=== PATIENT | female | born 1960 | race Caucasian/White ===

== ENCOUNTER 2016-11-26 23:07 | Emergency (ER) | payer OTHER ==
[2016-11-26 23:28] VITALS: BMI 27.7
--- NOTE | 2016-11-27 00:05 | PDOC ---
History of Present Illness - General History Source: Patient Exam Limitations: No Limitations - History of Present Illness Initial Comments: 11/27/16 00:24 The patient is a 56 year old female with significant past medical history of diabetes who presents to the ED for few months of nasal and chest congestion. Patient reports she has been feeling congestion for the past few months with SOB and occasional productive cough with yellow-greenish sputum. States she endorses chest pain when she cough. Denies lightheadedness, diaphoresis, palpitations, jaw pain, shoulder pain, arm pain, leg swelling, nausea, or vomiting. No sick contacts or recent travels. Denies oral contraceptives. The patient denies fever, chills, abdominal pain, and diarrhea. Allergies: NKDA Social History: Current smoker (half ppd). No alcohol or drug use reported. Past Surgical History: None reported PCP: Dr. Shey Donohue <Haydee Del Valle - Last Filed: 11/27/16 01:23> - General History Source: Patient <Kalyan Almazan - Last Filed: 11/27/16 01:46> - General Chief Complaint: Respiratory Stated Complaint: DIFFICULT BREATHING Time Seen by Provider: 11/26/16 23:25 Past History <Haydee Del Valle - Last Filed: 11/27/16 01:23> - Immunization History Immunization Up to Date: No - Psycho/Social/Smoking Cessation Hx Suicidal Ideation: No Smoking History: Current every day smoker Number of Cigarettes Smoked Daily: 10 Information on smoking cessation initiated: No Hx Alcohol Use: No Drug/Substance Use Hx: No <Kalyan Almazan - Last Filed: 11/27/16 01:46> - Past Medical History Allergies/Adverse Reactions: Allergies Allergy/AdvReac Type Severity Reaction Status Date / Time No Known Allergies Allergy Verified 11/27/16 00:03 Home Medications: Ambulatory Orders Albuterol Sulfate Inhaler - [Ventolin HFA Inhaler -] 2 inh IH Q6H #1 inh Azithromycin [Zithromax -] 250 mg PO UTDICT #6 tab 11/27/16 Duloxetine HCl [Cymbalta] 20 mg PO DAILY 11/27/16 Methylprednisolone [Medrol Dose Jareth] 4 mg PO ASDIR #21 tablet 11/27/16 Trazodone HCl [Desyrel -] 100 mg PO HS 11/27/16 Review of Systems - Review of Systems Able to Perform ROS?: Yes Comments:: 11/27/16 00:24 CONSTITUTIONAL: Absent: fever, no chills, no fatigue EYES: Absent: visual changes ENT: +nasal congestion Absent: ear pain, no sore throat CARDIOVASCULAR: +chest pain Absent: no palpitations RESPIRATORY: +productive cough with yellow-greenish sputum, chest congestion, SOB GI: Absent: abdominal pain, no nausea, no vomiting, no constipation, no diarrhea GENITOURINARY: Absent: dysuria, no frequency, no hematuria MUSCULOSKELETAL: Absent: back pain, no arthralgia, no myalgia SKIN: Absent: rash NEURO: Absent: headache <Haydee Del Valle - Last Filed: 11/27/16 01:23> *Physical Exam - Vital Signs Last Vital Signs Temp Pulse Resp BP Pulse Ox 98.8 F 82 14 146/79 96 11/26/16 23:24 11/26/16 23:24 11/26/16 23:24 11/26/16 23:24 11/26/16 23:44 - Physical Exam Comments: 11/27/16 00:24 GENERAL: Well-appearing, well-nourished. No apparent distress. HEENT: Normocephalic, atraumatic. PERRL, EOM intact. CARDIOVASCULAR: Normal S1, S2. Regular rate and rhythm. PULMONARY: Bilateral wheezing and crackles. No conversational dyspnea. No retractions. ABDOMEN: Obese. Soft, non-distended, non-tender. EXTREMITIES: Normal ROM in all four extremities. No gross deformities. SKIN: Warm, dry. No rash NEUROLOGICAL: No focal neurological deficits. <Haydee Del Valle - Last Filed: 11/27/16 01:23> - Vital Signs Last Vital Signs Temp Pulse Resp BP Pulse Ox 98.8 F 82 14 146/79 96 11/26/16 23:24 11/26/16 23:24 11/26/16 23:24 11/26/16 23:24 11/26/16 23:44 <Kalyan Almazan - Last Filed: 11/27/16 01:46> ED Treatment Course - LABORATORY CBC & Chemistry Diagram: 11/27/16 00:50 11/27/16 00:50 <Haydee Del Valle - Last Filed: 11/27/16 01:23> - LABORATORY CBC & Chemistry Diagram: 11/27/16 00:50 11/27/16 00:50 <Kalyan Almazan - Last Filed: 11/27/16 01:46> Medical Decision Making - Medical Decision Making 11/27/16 01:45 Dr. Almazan: The scribe's documentation has been prepared under my direction and personally reviewed by me in its entirery. I confirm that the note above accurately reflects all work, treatment, procedures, and medical decision making performed by me. <Kalyan Almazan - Last Filed: 11/27/16 01:46> *DC/Admit/Observation/Transfer - Attestations Scribe Attestion: 11/27/16 00:25 Documentation prepared by Haydee Del Valle, acting as medical device for Kalyan Almazan MD/. <Haydee Dle Valle - Last Filed: 11/27/16 01:23> - Discharge Dispostion Admit: No <Kalyan Almazan - Last Filed: 11/27/16 01:46> Diagnosis at time of Disposition: Bronchitis - Discharge Dispostion Disposition: HOME Condition at time of disposition: Stable - Prescriptions Prescriptions: Methylprednisolone [Medrol Dose Jareth] 4 mg PO ASDIR #21 tablet Albuterol Sulfate Inhaler - [Ventolin HFA Inhaler -] 2 inh IH Q6H #1 inh Azithromycin [Zithromax -] 250 mg PO UTDICT #6 tab - Referrals Referrals: Shey Engle [Primary Care Provider] - - Patient Instructions Printed Discharge Instructions: DI for Acute Bronchitis
[2016-11-27] MEDS ORDERED: methylPREDNISolone NA SUCC 125 MG/2 ML VIAL IVPB ONE (00:08)
[2016-11-27] MEDS ORDERED: ALBUTEROL SO4 2.5/IPRATROPIUM 0.5 INH SOL 3 ML VIAL.NEB. NEB STA ×3 (00:08→01:43)
[2016-11-27] MEDS ORDERED: MAGNESIUM SULF 50% (8.12 MEQ/2 ML-1 GM VIAL) IVPB ONE (00:09)
[2016-11-27] MEDS ORDERED: MAGNESIUM SULF 50% (8.12 MEQ/2 ML-1 GM VIAL) ONE (00:43)
[2016-11-27] MEDS ORDERED: methylPREDNISolone NA SUCC 125 MG/2 ML VIAL ONE (00:43)
[2016-11-27] MEDS ORDERED: ALBUTEROL SO4 2.5/IPRATROPIUM 0.5 INH SOL 3 ML VIAL.NEB. NEB ONE (00:43)
[2016-11-27 01:02] LABS: BASOPHIL 1.1 % (0-2.0); MCH 26.4 pg (25.7-33.7); MCHC 32.8 g/dl (32.0-36.0); MEAN CELL VOLUME 80.5 fl (80-96); NEUTROPHILS 85.7 % (42.8-82.8); PLATELET COUNT 228 K/MM3 (134-434); RDW 14.3 % (11.6-15.6); WHITE BLOOD COUNT 7.8 K/mm3 (4.0-10.0)
[2016-11-27 01:27] LABS: ALBUMIN 3.5 g/dl (3.4-5.0); BILIRUBIN,TOTAL 0.2 mg/dL (0.2-1.0); CALCIUM 9.2 mg/dL (8.5-10.1); COCKROFT - GAULT 77.7155; MAGNESIUM 1.7 mg/dL (1.8-2.4); TOT PROT 6.9 g/dl (6.4-8.2)
[2016-11-27] MEDS ORDERED: AZITHROMYCIN 250 MG TABLET (FP) PO STA (01:43)
[2016-11-27] MEDS ORDERED: AZITHROMYCIN 250 MG TABLET (FP) ONE (02:33)
[2016-11-27 02:53] VITALS: BP 140/78; PULSE 78; TEMP 98.6
== END 2016-11-27 02:52 | disposition home or self-care (01) ==
LOC: JER 23:07
PROC: 3E0F7GC Introduction of Other Therapeutic Substance into Respiratory Tract, Via Natural or Artificial Opening (ICD-10-PCS; principal; 2016-11-26)
PROC: 3E033GC Introduction of Other Therapeutic Substance into Peripheral Vein, Percutaneous Approach (ICD-10-PCS; 2016-11-26)
DX: J40 Bronchitis, not specified as acute or chronic (principal); F17.210 Nicotine dependence, cigarettes, uncomplicated
CPT/HCPCS: 36415; 71010-TC; 80053; 83735; 83880; 85025; 85610; 94640; 96374; 96375; 99282-25

== ENCOUNTER 2018-02-16 12:16 | Day surgery (SDC) | payer OTHER ==
[2018-02-16] MEDS ORDERED: BUPIVACAINE HCL/PF 0.5% (5MG/ML) 10 ML VIAL ONE (12:42)
[2018-02-16] MEDS ORDERED: GENTAMICIN SO4 80 MG/2 ML VIAL ONE (12:42)
[2018-02-16] MEDS ORDERED: THROMBIN (BOVINE) 20,000 UNIT VIAL TP ONE (12:42)
[2018-02-16] MEDS ORDERED: ACETAMINOPHEN INJECTION 100 ML IVPB ONE (12:49)
[2018-02-16] MEDS ORDERED: ROCURONIUM BROMIDE 50 MG/5 ML VIAL ONE ×2 (12:55)
[2018-02-16 13:00] VITALS: BMI 32.2
[2018-02-16] MEDS ORDERED: PROPOFOL 20 ML ONE (13:02)
[2018-02-16] MEDS ORDERED: fentaNYL CITRATE 250 MCG/5 ML VIAL ONE (13:03)
[2018-02-16] MEDS ORDERED: LIDOCAINE HCL/PF 2% SDV 5ML VIAL ONE (13:04)
[2018-02-16] MEDS ORDERED: DEXAMETHASONE SOD PHOSPHATE 4 MG/1 ML VIAL ONE (13:04)
[2018-02-16] MEDS ORDERED: MIDAZOLAM HCL 2 MG/2 ML SINGLE DOSE VIAL ONE (13:04)
[2018-02-16 13:15] VITALS: BP 125/66; PULSE 71; TEMP 98.1
[2018-02-16 13:19] LABS: BASO % 1.3 % (0-2.0); EOS % 2.1 % (0-4.5); HEMATOCRIT 38.8 % (32.4-45.2); HEMOGLOBIN 12.8 GM/dL (10.7-15.3); LYMPH % 26.4 % (8-40); MEAN CELL VOLUME 81.7 fl (80-96); MEAN PLT VOLUME 8.9 fl (7.5-11.1); MONO % 6.6 % (3.8-10.2); NEUT % 63.6 % (42.8-82.8); PLATELET COUNT 227 K/MM3 (134-434); RBC 4.76 M/mm3 (3.60-5.2); RDW 15.1 % (11.6-15.6); WHITE BLOOD COUNT 8.6 K/mm3 (4.0-10.0)
[2018-02-16 13:27] LABS: URINE APPEARANCE CLOUDY; URINE BILIRUBIN NEGATIVE (<2.0 mg/dL); URINE COLOR YELLOW; URINE GLUCOSE (UA) NEGATIVE (NEGATIVE); URINE KETONE NEGATIVE (NEGATIVE); URINE NITRITE POSITIVE (NEGATIVE); URINE PROTEIN NEGATIVE (NEGATIVE); URINE UROBILINOGEN NEGATIVE mg/dL (0.2-1.0)
[2018-02-16 13:29] LABS: URINE LEUK ESTERASE 3+ (NEGATIVE)
[2018-02-16 13:32] LABS: HCG,QUALITATIVE URINE Negative
[2018-02-16 13:36] LABS: ALBUMIN 3.8 g/dl (3.4-5.0); ANION GAP 7 (8-16); BLOOD UREA NITROGEN 22 mg/dL (7-18); CALCIUM 9.8 mg/dL (8.5-10.1); CHLORIDE 107 mmol/L (98-107); CO2 28 mmol/L (21-32); GLUCOSE,RANDOM 96 mg/dL (74-106); POTASSIUM 4.9 mmol/L (3.5-5.1); SODIUM 142 mmol/L (136-145)
[2018-02-16 13:40] LABS: ALK PHOS 70 U/L (45-117); BILIRUBIN,TOTAL 0.3 mg/dL (0.2-1.0); CREATININE 1.1 mg/dL (0.55-1.02); SGOT/AST 11 U/L (15-37); SGPT/ALT 15 U/L (12-78); TOT PROT 7.3 g/dl (6.4-8.2)
[2018-02-16 13:44] LABS: EPI CELLS RARE /HPF (FEW); URINE BACTERIA MODERATE /hpf (NONE SEEN)
[2018-02-16 14:05] LABS: INR 0.97 (0.83-1.09)
[2018-02-16] MEDS ORDERED: ALBUTEROL SO4 8 GM HFA INHALER IH ONE (14:20)
--- NOTE | 2018-02-16 16:40 | PN ---
Progress Note (short form) - Note Progress Note: ANESTHESIOLOGY Pt arrived in holding. interviewed and examined. PT develops shortness of breath when ambulating 1 block. Reports productive cough. Smoked 2 cigarettes this morning. Expiratory wheezing diffusely on auscultation of lungs and rhonchi L > R. Wheezing persists despite albuterol administered in holding. No notes in chart from PCP or chest x-ray. Procedure cancelled for needed optimization of respiratory status. Stressed need to abstain from smoking for a minimum of 4 weeks (preferably 8 weeks) prior to planned procedure. Pt understands and acknowledged recommendations.
--- NOTE | 2018-02-16 16:47 | EKG ---
Test Reason : Blood Pressure : / mmHG Vent. Rate : 062 BPM Atrial Rate : 062 BPM P-R Int : 154 ms QRS Dur : 078 ms QT Int : 444 ms P-R-T Axes : 063 011 027 degrees QTc Int : 450 ms SINUS RHYTHM WITH PREMATURE ATRIAL COMPLEXES OTHERWISE NORMAL ECG NO PREVIOUS ECGS AVAILABLE Confirmed by DARCI KAUFFMAN, HANNAH ([id number]) on 02/16/2018 4:47:09 PM Referred By: Yehuda Corona Confirmed By:HANNAH BEJARANO MD
== END 2018-02-16 15:50 | disposition home or self-care (01) ==
LOC: JASUSAT 12:16 → UNDOADMIN 12:16 → JSAMEDAYSX 12:16 → EDSTATUS 13:00 → JASUSAT 15:50
PROVIDERS: ATTEND Neurological Surgery
PROC: 3E013GC Introduction of Other Therapeutic Substance into Subcutaneous Tissue, Percutaneous Approach (ICD-10-PCS; principal; 2018-02-16)
DX: Z53.8 Procedure and treatment not carried out for other reasons (principal)
CPT/HCPCS: 36415; 80053; 81003; 81015; 82962; 84703; 85025; 85610; 86850; 86900; 86901; 93005; 93010; J0131

== ENCOUNTER 2018-09-11 06:18 | Day surgery (SDC) | payer OTHER ==
[2018-09-11 07:03] LABS: URINE APPEARANCE CLOUDY; URINE BILIRUBIN NEGATIVE (<2.0 mg/dL); URINE COLOR YELLOW; URINE GLUCOSE (UA) NEGATIVE (NEGATIVE); URINE KETONE NEGATIVE (NEGATIVE); URINE LEUK ESTERASE 3+ (NEGATIVE); URINE NITRITE NEGATIVE (NEGATIVE); URINE PROTEIN NEGATIVE (NEGATIVE); URINE UROBILINOGEN NEGATIVE mg/dL (0.2-1.0)
[2018-09-11 07:07] LABS: EPI CELLS RARE /HPF (FEW); URINE BACTERIA MANY /hpf (NONE SEEN)
[2018-09-11 07:13] VITALS: BP 126/68; PULSE 77; TEMP 97.9
== END 2018-09-11 08:22 | disposition home or self-care (01) ==
LOC: JASUSAT 06:18 → UNDOADMIN 06:18 → JSAMEDAYSX 06:18 → EDSTATUS 08:00 → JASUSAT 08:22 → UNDODISIN 08:22
PROVIDERS: ATTEND Neurological Surgery
PROC: 3E013GC Introduction of Other Therapeutic Substance into Subcutaneous Tissue, Percutaneous Approach (ICD-10-PCS; principal; 2018-09-11)
DX: Z53.8 Procedure and treatment not carried out for other reasons (principal)
CPT/HCPCS: 81003; 81015; 82962; 86850; 86900; 86901

== ENCOUNTER 2018-09-17 06:05 | Inpatient (IN) | payer OTHER ==
[2018-09-17 06:50] LABS: URINE APPEARANCE CLEAR; URINE BILIRUBIN NEGATIVE (<2.0 mg/dL); URINE COLOR LTYELLOW; URINE GLUCOSE (UA) NEGATIVE (NEGATIVE); URINE KETONE NEGATIVE (NEGATIVE); URINE LEUK ESTERASE 1+ (NEGATIVE); URINE NITRITE NEGATIVE (NEGATIVE); URINE PROTEIN NEGATIVE (NEGATIVE); URINE UROBILINOGEN NEGATIVE mg/dL (0.2-1.0)
[2018-09-17] MEDS ORDERED: PNEUMOC 13-VAL CONJ-DIP CRM/PF 0.5 ML DISP.SYRIN IM ONE (07:11)
[2018-09-17] MEDS ORDERED: PROPOFOL 20 ML ONE ×2 (07:14→12:26)
[2018-09-17] MEDS ORDERED: SUCCINYLCHOLINE CHLORIDE 200 MG/10 ML VIAL ONE (07:14)
[2018-09-17] MEDS ORDERED: fentaNYL CITRATE 250 MCG/5 ML VIAL ONE (07:14)
[2018-09-17] MEDS ORDERED: HYDROmorphone HCl 2 MG/ML VIAL ONE (07:14)
[2018-09-17] MEDS ORDERED: ROCURONIUM BROMIDE 50 MG/5 ML VIAL ONE ×3 (07:14→10:29)
[2018-09-17] MEDS ORDERED: MIDAZOLAM HCL 2 MG/2 ML SINGLE DOSE VIAL ONE (07:15)
[2018-09-17] MEDS ORDERED: ceFAZolin SODIUM 1 GM VIAL ONE ×3 (07:16→17:51)
[2018-09-17] MEDS ORDERED: VANCOMYCIN 1,000 MG VIAL (RESTRICTED TO ID ONLY) ONE ×2 (07:16→07:25)
[2018-09-17] MEDS ORDERED: THROMBIN (BOVINE) 20,000 UNIT VIAL TP ONE (07:25)
[2018-09-17] MEDS ORDERED: LIDOCAINE 1%-EPI 1:100,000 30 ML MDV IJ ONE (07:25)
[2018-09-17] MEDS ORDERED: GENTAMICIN SO4 80 MG/2 ML VIAL ONE (07:25)
[2018-09-17] MEDS ORDERED: BUPIVACAINE LIPOSOME/PF (EXPAREL) 266 MG/20 ML VIAL ONE (07:41)
[2018-09-17] MEDS ORDERED: BUPIVACAINE HCL/PF 0.25% (2.5MG/ML) 10 ML VIAL ONE (07:41)
[2018-09-17] MEDS ORDERED: BUPIVACAINE HCL/PF 0.5% (5MG/ML) 10 ML VIAL ONE (07:42)
--- NOTE | 2018-09-17 08:02 | HP ---
History & Physical Update - History History: No Change - Physical Physical: No Change - Assessment Assessment: No Change - Plan Plan: No Change (Full H&P in chart from 09/02/18)
[2018-09-17] MEDS ORDERED: MORPHINE 5 MG/10 ML AMP - FOR COMPOUNDING USE ONLY ONE (08:09)
[2018-09-17] MEDS ORDERED: LIDOCAINE HCL/PF 2% SDV 5ML VIAL ONE (08:10)
[2018-09-17] MEDS ORDERED: VANCOMYCIN 1,000 MG VIAL (RESTRICTED TO ID ONLY) IVPB ONE ×2 (08:15→09:15)
[2018-09-17] MEDS ORDERED: ceFAZolin SODIUM 1 GM VIAL IVPB ONE ×2 (08:30→18:00)
[2018-09-17 09:00] LABS: EPI CELLS RARE /HPF (FEW)
[2018-09-17] MEDS ORDERED: FLU VACCINE QUAD 60 MCG/0.5 ML (MDV 18-19) IM ONE (09:00)
[2018-09-17] MEDS ORDERED: LIDOCAINE 1%/EPI 1:100000 (50 ML MULTI DOSE VIAL) NR ONE (09:10)
[2018-09-17] MEDS ORDERED: GENTAMICIN 80MG PREMIX BAG IVPB ONE (09:15)
[2018-09-17] MEDS ORDERED: GELATIN, ABSORBABLE 12-7MM EACH SPONGE TP ONE (09:15)
[2018-09-17] MEDS ORDERED: BACITRACIN 50,000 UNITS VIAL TP ONE (09:15)
[2018-09-17] MEDS ORDERED: BACITRACIN 50,000 UNITS VIAL NR ONE (09:15)
[2018-09-17] MEDS ORDERED: HYDROGEN PEROXIDE 473 ML PO ONE (09:15)
[2018-09-17] MEDS ORDERED: NEOSTIGMINE METHYLSULFATE 0.5 MG/1 ML - 10 ML MDV ONE (10:09)
[2018-09-17] MEDS ORDERED: GLYCOPYRROLATE 0.2 MG/1 ML VIAL ONE (10:59)
[2018-09-17] MEDS ORDERED: ONDANSETRON 4 MG/2 ML VIAL ONE (11:17)
[2018-09-17] MEDS ORDERED: DEXAMETHASONE SOD PHOSPHATE 4 MG/1 ML VIAL ONE (11:17)
[2018-09-17] MEDS ORDERED: ePHEDrine SULFATE 50 MG/1 ML AMPULE ONE (12:08)
[2018-09-17] MEDS ORDERED: ONDANSETRON 4 MG/2 ML VIAL IVPUSH PRN (13:23)
[2018-09-17] MEDS ORDERED: LACTATED RINGERS SOLUTION 1,000 ML IV SCH (13:30)
[2018-09-17] MEDS ORDERED: oxyCODONE HCL 5 MG TABLET PO PRN ×2 (13:55)
[2018-09-17] MEDS ORDERED: diphenhydrAMINE HCL 25 MG CAPSULE (FP) PO PRN (13:55)
[2018-09-17] MEDS ORDERED: NALOXONE HCL 0.4 MG/ML VIAL ONE (15:39)
[2018-09-17] MEDS ORDERED: NALOXONE HCL 0.4 MG/ML VIAL IVPUSH ONE (15:40)
--- NOTE | 2018-09-17 15:42 | OP ---
Operative Note - Note: Operative Date: 09/17/18
[2018-09-17] MEDS ORDERED: ALBUTEROL SO4 8 GM HFA INHALER IH PRN (16:15)
--- NOTE | 2018-09-17 16:36 | CONSULT ---
Consultation: REQUESTING PROVIDER: Dr. Corona CONSULT REQUEST: We have been asked to medically evaluate this patient for admission to ICU. HISTORY OF PRESENT ILLNESS: 58 y/o F with PMHx of CAD (Cath in 2014 shows nonobstructive disease), COPD, DMII with diabetic CKD, Current smoker, GERD, HTN, HLD, Schizoaffective Disorder , Major depression, Recent UTI will be monitored in ICU s/p L4-S1 Laminectomies and Arthrodesis. Patient was altered on presentation Post-Op and thus the majority of the history was provided by the chart. Patient has had chronic back pain that did not improve with conservative management. Her recent Lumbar MRI that revealed multiple levels with a herniated nucleus pulposus at L4-L5 and L5- S1 accompanied by spondylosis. During my interview, patient has remained sedated , easily arousable with confused speech. As per PACU nursing staff, patient was unresponsive due to narcotic use and was given Narcan. REVIEW OF SYSTEMS: Unable to obtain PHYSICAL EXAMINATION Vital Signs - 24 hr 09/17/18 09/17/18 09/17/18 07:09 07:16 13:04 Temperature 97.5 F L 97.5 F L 98.0 F Pulse Rate 72 72 96 H Respiratory 20 20 8 L Rate Blood Pressure 129/48 L 129/48 L 129/50 L O2 Sat by Pulse 96 75 L Oximetry (%) 09/17/18 09/17/18 09/17/18 13:20 13:35 13:50 Temperature Pulse Rate 80 82 82 Respiratory 16 16 16 Rate Blood Pressure 131/50 L 98/50 L 110/50 L O2 Sat by Pulse 100 100 100 Oximetry (%) 09/17/18 09/17/18 09/17/18 14:05 14:20 14:35 Temperature Pulse Rate 80 94 H 92 H Respiratory 16 16 16 Rate Blood Pressure 107/52 L 128/70 134/72 O2 Sat by Pulse 100 95 95 Oximetry (%) 09/17/18 09/17/18 14:50 15:05 Temperature Pulse Rate 92 H 96 H Respiratory 16 16 Rate Blood Pressure 132/56 L 131/60 O2 Sat by Pulse 96 92 L Oximetry (%) GENERAL: Sedated but easily arousable, NAD HEAD: NCAT EYES: PERRL EARS, NOSE, THROAT: NPA in place, Moist mucous membranes. NECK: Supple LUNGS: Currently on Bipap, Diminished breath sounds at the bases, Rhonchi in the upper lobes, No wheezes, no crackles. HEART: Regular rate and rhythm, normal S1 and S2 without murmur ABDOMEN: Soft, nontender, not distended, + bowel sounds, no guarding BACK: RACHAEL Drain present on the Right EXTREMITIES: No edema NEUROLOGICAL: Sedated but easily arousable, confused speech SKIN: Warm, dry Laboratory Results - last 24 hr 09/17/18 09/17/18 09/17/18 06:35 07:25 08:21 POC Glucometer 118 Urine Color Ltyellow Urine Appearance Clear Urine pH 5.0 Ur Specific [place] 1.014 Urine Protein Negative Urine Glucose (UA) Negative Urine Ketones Negative Urine Blood Negative Urine Nitrite Negative Urine Bilirubin Negative Urine Urobilinogen Negative Ur Leukocyte Esterase 1+ H D Urine WBC (Auto) 7 Urine RBC (Auto) 1 Ur Epithelial Cells Rare Blood Type O POSITIVE Antibody Screen Negative 09/17/18 10:20 POC Glucometer 117 Urine Color Urine Appearance Urine pH Ur Specific [place] Urine Protein Urine Glucose (UA) Urine Ketones Urine Blood Urine Nitrite Urine Bilirubin Urine Urobilinogen Ur Leukocyte Esterase Urine WBC (Auto) Urine RBC (Auto) Ur Epithelial Cells Blood Type Antibody Screen Active Medications Albuterol Sulfate (Ventolin Hfa Inhaler -) 2 puff IH Q6H PRN PRN Reason: SHORTNESS OF BREATH Aspirin (Ecotrin -) 81 mg PO DAILY [facility] Benztropine Mesylate (Cogentin -) 0.5 mg PO BID ANH Buspirone HCl (Buspar -) 10 mg PO TID [facility] Cholecalciferol (Vitamin D3 -) 800 unit PO DAILY [facility] Cyclobenzaprine HCl (Flexeril -) 10 mg PO BID ANH Diltiazem HCl (Cardizem Cd -) 180 mg PO DAILY [facility] Diphenhydramine HCl (Benadryl -) 25 mg PO Q6H PRN PRN Reason: FOR ITCHING Docusate Sodium (Colace -) 100 mg PO TID ANH Duloxetine HCl (Cymbalta -) 60 mg PO DAILY [facility] Fentanyl (Sublimaze Injection -) 25 mcg IVPUSH [id number] PRN PRN Reason: PAIN-PACU ORDER X 4 DOSES ONLY Ferrous Sulfate (Feosol -) 325 mg PO DAILY [facility] Folic Acid (Folic Acid -) 1 mg PO DAILY [facility] Gabapentin (Neurontin -) 300 mg PO BID [facility] Heparin Sodium (Porcine) (Heparin -) 5,000 unit SQ TID [facility] Lactated Ringer's (Lactated Ringers Solution) 1,000 mls @ 125 mls/hr IV ASDIR [facility] Cefazolin Sodium (Ancef 1 Gm Premixed Ivpb -) 1 gm in 50 mls @ 100 mls/hr IVPB Q8H-IV [facility] Lactated Ringer's (Lactated Ringers Solution) 1,000 ml in 1,000 mls @ 125 mls/ hr IV ASDIR [facility] Influenza Virus Vaccine Quadrival (Flulaval Quad [id number]) 60 mcg IM .ONCE ONE Stop: 09/17/18 07:11 Morphine Sulfate (Morphine Sulfate) 4 mg IVPUSH Q4H PRN PRN Reason: PAIN LEVEL 7 - 10 Stop: 09/18/18 13:54 Non-Formulary Medication (Fluticasone/Umeclidin/Vilanter [Trelegy Ellipta 100- 62.5-25]) 1 each IH DAILY [facility] Non-Formulary Medication (Metformin Hcl [Metformin Er Osmotic]) 500 mg PO DAILY [facility] Non-Formulary Medication (Omeprazole [Omeprazole]) 40 mg PO DAILY [facility] Ondansetron HCl (Zofran Injection) 4 mg IVPUSH Q6H PRN PRN Reason: NAUSEA AND/OR VOMITING Ondansetron HCl (Zofran Injection) 4 mg IVPUSH Q6H PRN PRN Reason: NAUSEA Oxycodone HCl (Roxicodone -) 5 mg PO Q4H PRN PRN Reason: PAIN LEVEL 1-5 Stop: 09/18/18 13:54 Oxycodone HCl (Roxicodone -) 10 mg PO Q4H PRN PRN Reason: PAIN LEVEL 6-10 Stop: 09/18/18 13:54 Pneumococcal 13-Valent Conj Vacc (Prevnar 13 Syringe -) 0.5 ml IM .ONCE ONE Stop: 09/17/18 07:12 Senna/Docusate Sodium (Pericolace -) 1 tablet PO HS [facility] Sitagliptin Phosphate (Januvia -) 100 mg PO DAILY@0700 [facility] Trazodone HCl (Desyrel -) 500 mg PO HS [facility] Ziprasidone (Geodon -) 25 mg PO DAILY [facility] ASSESSMENT/PLAN: 58 y/o F with PMHx of CAD (Cath in 2014 shows nonobstructive disease), COPD, DMII with diabetic CKD, Current smoker, GERD, HTN, HLD, Schizoaffective Disorder , Major depression will be monitored in ICU s/p L4-S1 Laminectomies and Arthrodesis. #Neuro S/P L4-S1 Laminectomies and Arthrodesis Hx of Schizoaffective Disorder, Major depression -Post-Op labs, L-Spine CT pending -Pain control via Morphine, Oxycodone -Continue home dose Benztropine, Buspirone, Cyclobenzaprine, Duloxetine, Gabapentin, Trazodone, Ziprasidone -Incentive spirometer -Neurochecks Q2H -Vital signs Q4h #Cardio Hx of CAD, HTN, HLD -Continue home dose Aspirin, Diltiazem #Pulm Hx of COPD -Continue home dose Albuterol IH, Fluticasone/Umeclidin/Vilanter -Supplemental O2 to maintain SpO2 88-92% -Currently on Bipap, wean as tolerated #GI Hx of GERD -Ondansetron for Nausea -Bowel regimen via Docusate, Senna #Renal Hx of CKD -Continue to monitor Urine output, I&Os #Heme -Continue to monitor for acute blood loss anemia #Endo Hx of DMII -Hold home dose oral hypoglycemics -ISS BGMs ACHS #ID -Afebrile without leukocytosis -Continue Cefazolin 1gm Q8H #FEN -LR @ 125 mls/hr -Replete lytes PRN -Regular diet #PPx -DVT: Heparin, SCDs -GI: Omeprazole #LTD -Rocha catheter placed on 09/17 -RACHAEL Drain present on the Right placed on 09/17 Dispo: We will continue to follow the patient. Thank you for this consultative opportunity. Visit type - Emergency Visit Emergency Visit: No - New Patient This patient is new to me today: Yes Date on this admission: 09/17/18 - Critical Care Critical Care patient: Yes Total Critical Care Time (in minutes): 36 Critical Care Statement: The care of this patient involved high complexity decision making to prevent further life threatening deterioration of the patient 's condition and/or to evaluate & treat vital organ system(s) failure or risk of failure.
--- NOTE | 2018-09-17 17:00 | HP ---
CHIEF COMPLAINT: P/O L4-S1 Laminectomies and Arthrodesis PCP: Dr. Shey Donohue HISTORY OF PRESENT ILLNESS: Pt is a 58 y/o lady with a significant past medical history of CAD (Cath in 2014 shows nonobstructive disease), COPD, NIDDM, CKD (Baseline Cr?) , GERD, HTN , HLD, Schizoaffective Disorder, amd Major depression who is POD#0 L4-S1 Laminectomies and Arthrodesis. Pt lethargic and diffiuclt to arouse during interview. Information is obtained from EM R and previous medical records. Patient reportedly has had progressive lower extremity weakness for which she underwent a Lumbar MRI that revealed multiple levels with a herniated nucleus pulposus at L4-L5 and L5-S1 accompanied by spondylosis. Shortly after the procedure, pt was given narcotic medication 2/2 pain which made her unresponsive and had to get Narcan. PAST MEDICAL HISTORY: PER HPI Social History: Smoking: Current smoker (half ppd) No Known Allergies Allergy (Verified 09/17/18 07:21) HOME MEDICATIONS: Home Medications Medication Instructions Recorded Albuterol Sulfate Inhaler - 2 inh IH Q6H #1 inh 11/27/16 [Ventolin HFA Inhaler -] traZODone HCL [Desyrel -] 500 mg PO HS 11/27/16 Aspirin Coated [Ecotrin -] 81 mg PO DAILY 02/16/18 Benztropine Mesylate 0.5 mg PO BID 02/16/18 Buspirone HCl [Buspar -] 10 mg PO TID 02/16/18 Cyclobenzaprine HCl 10 mg PO BID 02/16/18 Diltiazem Cd [Cardizem Cd -] 180 mg PO DAILY 02/16/18 Duloxetine HCl [Cymbalta] 60 mg PO DAILY 02/16/18 Gabapentin 300 mg PO BID 02/16/18 Omeprazole 40 mg PO DAILY 02/16/18 Sennosides/Docusate Sodium [Senna 1 each PO HS 02/16/18 Laxative Tablet] Sitagliptin Phosphate [Januvia] 100 mg PO DAILY 02/16/18 Ziprasidone HCl [Geodon] 25 mg PO DAILY 02/16/18 metFORMIN HCL [Metformin HCl ER] 500 mg PO DAILY 02/16/18 Cholecalciferol (Vitamin D3) 800 unit PO DAILY 09/10/18 [Vitamin D3 -] Fluticasone/Umeclidin/Vilanter 1 each IH DAILY 09/10/18 [Trelegy Ellipta 100-62.5-25] Meloxicam [Mobic] 15 mg PO PRN PRN 09/11/18 REVIEW OF SYSTEMS Pt lethargic, non-responsive during examination PHYSICAL EXAMINATION Vital Signs - 24 hr 09/17/18 09/17/18 09/17/18 07:09 07:16 13:04 Temperature 97.5 F L 97.5 F L 98.0 F Pulse Rate 72 72 96 H Respiratory 20 20 8 L Rate Blood Pressure 129/48 L 129/48 L 129/50 L O2 Sat by Pulse 96 75 L Oximetry (%) 09/17/18 09/17/18 09/17/18 13:20 13:35 13:50 Temperature Pulse Rate 80 82 82 Respiratory 16 16 16 Rate Blood Pressure 131/50 L 98/50 L 110/50 L O2 Sat by Pulse 100 100 100 Oximetry (%) 09/17/18 09/17/18 09/17/18 14:05 14:20 14:35 Temperature Pulse Rate 80 94 H 92 H Respiratory 16 16 16 Rate Blood Pressure 107/52 L 128/70 134/72 O2 Sat by Pulse 100 95 95 Oximetry (%) 09/17/18 09/17/18 09/17/18 14:50 15:05 15:20 Temperature Pulse Rate 92 H 96 H 100 H Respiratory 16 16 16 Rate Blood Pressure 132/56 L 131/60 123/60 O2 Sat by Pulse 96 92 L 95 Oximetry (%) 09/17/18 09/17/18 09/17/18 15:35 15:50 16:05 Temperature Pulse Rate 100 H 100 H 100 H Respiratory 16 16 16 Rate Blood Pressure 124/62 125/70 124/66 O2 Sat by Pulse 95 95 95 Oximetry (%) 09/17/18 16:20 Temperature Pulse Rate 100 H Respiratory 16 Rate Blood Pressure 123/60 O2 Sat by Pulse 95 Oximetry (%) GENERAL: Obtunded, nonresponsive HEAD: Atraumatic/Normocephalic EYES: EOMI, Sclera Clear EARS, NOSE, THROAT: MMM NECK: Normal range of motion, supple without lymphadenopathy, JVD, or masses. LUNGS: CTA B/L Anteriorly HEART: RRR nl s1s2 ABDOMEN: Obese, slightly distended no facial grimacing to deep palpation. Gonzalo Car Drain serosanguinos fluid LOWER EXTREMITIES: No CCE, SCD's TEDs NEUROLOGICAL: unable to assess Laboratory Results - last 24 hr 09/17/18 09/17/18 09/17/18 06:35 07:25 08:21 POC Glucometer 118 Urine Color Ltyellow Urine Appearance Clear Urine pH 5.0 Ur Specific [place] 1.014 Urine Protein Negative Urine Glucose (UA) Negative Urine Ketones Negative Urine Blood Negative Urine Nitrite Negative Urine Bilirubin Negative Urine Urobilinogen Negative Ur Leukocyte Esterase 1+ H D Urine WBC (Auto) 7 Urine RBC (Auto) 1 Ur Epithelial Cells Rare Blood Type O POSITIVE Antibody Screen Negative 09/17/18 10:20 POC Glucometer 117 Urine Color Urine Appearance Urine pH Ur Specific [place] Urine Protein Urine Glucose (UA) Urine Ketones Urine Blood Urine Nitrite Urine Bilirubin Urine Urobilinogen Ur Leukocyte Esterase Urine WBC (Auto) Urine RBC (Auto) Ur Epithelial Cells Blood Type Antibody Screen ASSESSMENT/PLAN: Pt is a 58 y/o lady with a significant past medical history of CAD (Cath in 2014 shows nonobstructive disease), COPD, NIDDM, CKD (Baseline Cr?) , GERD, HTN , HLD, Schizoaffective Disorder, amd Major depression who is POD#0 L4-S1 Laminectomies and Arthrodesis. # POD#0 L4-S1 Laminectomies and Arthrodesis. -Morphine 4 mg PO Q4H PRN pain 7-10 -Oxycodone 5 MG pain 4-6. Q3HI. Tylenol 1 gm Q6H PRN--Total of 4 Doses -Will Check QTc. Will give Compazine in meantime for nausea PRN -Bowel Regimen -NPO #DM -Insulin Sliding Scale TID AC Will withold oral hypoglycemics #COPD home dose Albuterol IH, Fluticasone/Umeclidin/Vilanter #HTN -Cardizem 180 MG PO Daily #Schizoaffective D/O/ [place] Depression -Continue home meds. Duloxetine 60 mg po daily -Continue Buspirone 10 mg po tid -Pt also on Ziprasidone and Trazodone. Will reconcile medications tomorrow before starting. #FEN LR@125cc/hr Monitor Electrolytes NPO #DVT ppx: SCD's/TEDs. Will start HEP SQ TID tomorrow #Dispo: ICU Visit type - Emergency Visit Emergency Visit: No - New Patient This patient is new to me today: Yes Date on this admission: 09/17/18 - Critical Care Critical Care patient: Yes Total Critical Care Time (in minutes): 35 Critical Care Statement: The care of this patient involved high complexity decision making to prevent further life threatening deterioration of the patient 's condition and/or to evaluate & treat vital organ system(s) failure or risk of failure.
--- NOTE | 2018-09-17 17:23 | PN ---
Teaching Attending Note Name of Resident: Darrion Monsalve ATTENDING PHYSICIAN STATEMENT I saw and evaluated the patient. I reviewed the resident's note and discussed the case with the resident. I agree with the resident's findings and plan as documented. SUBJECTIVE: CC: s/p L4-S1 laminectomies. HPI: 58 y/o lady with h/o CAD, HTN, COPD, depression, CKD, DM , Schizoaffective disorder, and lumbar herniated disks who presented for lumbar surgery. Now pt is in PACU and is still sedated but arousable. per d/w [employer] OPERATOR, pt woke up after her procedure with lots of pain and was given narcotics which made her unresponsive and had to get Narcan. unable to obtain any hx form patient as she falls asleep quickly OBJECTIVE: NAD, snoring, arousable , but falls asleep shortly. HEENT: dry MM, oral breathing, NC and nasopharyneal airway piece in nose. no JVS. no facial droop. round equal pupils, reactive to light . CV: RRR, Lungs: limited exam due to snoring Abd: absent BS, ND, NT, obese, soft. Ext : no edema or erythema. R anterior knee scar. Neuro : very limited due to sedation . round equal pupils, reactive to light , no facial droop, knee jerk 1+ b/l . unable to assess rest of exam . has a drain with blood in bag ASSESSMENT AND PLAN: 58 y/o lady with h/o CAD, HTN, COPD, depression, CKD, DM , Schizoaffective disorder, and lumbar herniated disks who presented for lumbar surgery. 1- S/P L4-S1 lamincetomies. POD 0 - admit to ICU for monitoring - careful administration of narcotics as very sensitive and required narcan in PACU - bowel regimen - heparin sq in am - PT eval in am - monitor air ways 2- h/o CAD, HTN: cont her home meds : cardizem, ASA , and will confirm her meds 3- h/o DM: hold metformin - can cont januvia but add SSI 4- Diet : start a diet when awake enough to eat CBC , BMP will review her pre-op EKG for nausea meds
[2018-09-17] MEDS: LACTATED RINGERS SOLUTION 1,000 ML/1,000 ML INFUS.BAG IV SCH (17:45)
[2018-09-17] MEDS: CEFAZOLIN 1 GM/D5W 1 GM/50 ML BAG IVPB SCH (18:00)
[2018-09-17 18:37] LABS: HEMATOCRIT 33.7 % (32.4-45.2); HEMOGLOBIN 11.3 GM/dL (10.7-15.3); MCH 28.5 pg (25.7-33.7); MCHC 33.5 g/dl (32.0-36.0); MEAN CELL VOLUME 85.1 fl (80-96); MEAN PLT VOLUME 8.5 fl (7.5-11.1); PLATELET COUNT 191 K/MM3 (134-434); RBC 3.95 M/mm3 (3.60-5.2); RDW 14.8 % (11.6-15.6); WHITE BLOOD COUNT 12.6 K/mm3 (4.0-10.0)
[2018-09-17 19:40] LABS: ANION GAP 8 MMOL/L (8-16); BLOOD UREA NITROGEN 25 mg/dL (7-18); CALCIUM 8.5 mg/dL (8.5-10.1); CHLORIDE 108 mmol/L (98-107); CO2 24 mmol/L (21-32); CREATININE 1.2 mg/dL (0.55-1.3); GLUCOSE,RANDOM 201 mg/dL (74-106); POTASSIUM 4.9 mmol/L (3.5-5.1); SODIUM 139 mmol/L (136-145)
[2018-09-17] MEDS: DOCUSATE SODIUM 100 MG CAPSULE (FP) PO SCH ×2 (19:45→21:15)
[2018-09-17] MEDS: BENZTROPINE MESYLATE 0.5 MG TABLET (FP) PO SCH (21:15)
[2018-09-17] MEDS: CYCLOBENZAPRINE HCL 10 MG TABLET (FP) PO SCH (21:15)
[2018-09-17] MEDS: SENNOSIDES/DOCUSATE COMBO (SENNA PLUS) TABLET (UD) PO SCH (21:15)
[2018-09-17] MEDS: GABAPENTIN 300 MG CAPSULE (FP) PO SCH (21:15)
[2018-09-17] MEDS: busPIRone HCL 10 MG TABLET (FP) PO SCH (21:15)
[2018-09-17] MEDS: traZODone HCL 100 MG TABLET (FP) PO SCH (21:15)
[2018-09-17] MEDS ORDERED: INSULIN SLIDING SCALE (NOVOLOG) 1 VIAL SQ SCH (22:00)
[2018-09-18] MEDS: ACETAMINOPHEN 1000 MG/100 ML VIAL (NON FORMULARY) IVPB PRN ×2 (00:04→14:00)
[2018-09-18] MEDS: morphine SULFATE 4 MG/ML VIAL IVPUSH PRN ×2 (01:02→07:57)
[2018-09-18] MEDS: CEFAZOLIN 1 GM/D5W 1 GM/50 ML BAG IVPB SCH ×3 (02:06→17:42)
[2018-09-18 06:02] LABS: BASO % 0.1 % (0-2.0); EOS % 0.1 % (0-4.5); HEMATOCRIT 27.6 % (32.4-45.2); HEMOGLOBIN 9.2 GM/dL (10.7-15.3); LYMPH % 7.4 % (8-40); MCHC 33.4 g/dl (32.0-36.0); MEAN CELL VOLUME 83.7 fl (80-96); MEAN PLT VOLUME 8.1 fl (7.5-11.1); MONO % 6.5 % (3.8-10.2); NEUT % 85.9 % (42.8-82.8); PLATELET COUNT 180 K/MM3 (134-434); RDW 14.6 % (11.6-15.6)
[2018-09-18] MEDS: INSULIN SLIDING SCALE (NOVOLOG) 1 VIAL SQ SCH ×3 (06:17→17:44)
[2018-09-18] MEDS ORDERED: PT OWN MED DRAWER 7, Y5N ONE ×3 (06:19→20:47)
[2018-09-18] MEDS: busPIRone HCL 10 MG TABLET (FP) PO SCH ×4 (06:20→22:30)
[2018-09-18] MEDS: DOCUSATE SODIUM 100 MG CAPSULE (FP) PO SCH ×3 (06:20→22:00)
[2018-09-18 06:55] LABS: ALBUMIN 2.6 g/dl (3.4-5.0); ALK PHOS 59 U/L (45-117); ANION GAP 3 MMOL/L (8-16); BILIRUBIN,TOTAL 0.3 mg/dL (0.2-1); BLOOD UREA NITROGEN 17 mg/dL (7-18); CALCIUM 8.1 mg/dL (8.5-10.1); CHLORIDE 105 mmol/L (98-107); CO2 30 mmol/L (21-32); CREATININE 0.9 mg/dL (0.55-1.3); GLUCOSE,RANDOM 126 mg/dL (74-106); MAGNESIUM 1.8 mg/dL (1.8-2.4); PHOSPHOROUS 4.1 mg/dL (2.5-4.9); POTASSIUM 4.6 mmol/L (3.5-5.1); SGOT/AST 96 U/L (15-37); SGPT/ALT 150 U/L (13-61); SODIUM 139 mmol/L (136-145); TOT PROT 5.2 g/dl (6.4-8.2)
[2018-09-18] MEDS ORDERED: sitaGLIPtin PHOSPHATE 100 MG TABLET (FP) PO SCH (07:00)
--- NOTE | 2018-09-18 07:28 | PN ---
Physical Exam: SUBJECTIVE: Patient seen and examined this AM in ICU. Complains of 10/10 pain over surgical site. Having nonproductive cough. Passed flatus. Denies any overnight fevers, chills, chest pain, SOB, nausea, vomiting. OBJECTIVE: Vital Signs Period Temp Pulse Resp BP Sys/Mcdaniel Pulse Ox Last 24 Hr 97.5 F-98.2 F 72-100 8-20 98-138/48-75 75-100 GENERAL: A&Ox3, NAD HEAD: NCAT EYES: PERRL, EOMI ENT: NPA in place, Moist mucous membranes. NECK: Supple LUNGS: Diminished breath sounds at the bases, No wheezes, no crackles. HEART: Regular rate and rhythm, normal S1 and S2 without murmur ABDOMEN: Soft, nontender, distended, + bowel sounds, no guarding BACK: RACHAEL Drain present on the Right EXTREMITIES: No edema NEUROLOGICAL: Cranial nerves II through XII grossly intact. Normal speech. SKIN: Warm, dry Laboratory Results - last 24 hr 09/17/18 09/17/18 09/17/18 06:35 07:25 08:21 WBC RBC Hgb Hct MCV MCH MCHC RDW Plt Count MPV Absolute Neuts (auto) Neutrophils % Lymphocytes % Monocytes % Eosinophils % Basophils % Nucleated RBC % Sodium Potassium Chloride Carbon Dioxide Anion Gap BUN Creatinine Creat Clearance w eGFR POC Glucometer 118 Random Glucose Calcium Phosphorus Magnesium Total Bilirubin AST ALT Alkaline Phosphatase Total Protein Albumin Urine Color Ltyellow Urine Appearance Clear Urine pH 5.0 Ur Specific [place] 1.014 Urine Protein Negative Urine Glucose (UA) Negative Urine Ketones Negative Urine Blood Negative Urine Nitrite Negative Urine Bilirubin Negative Urine Urobilinogen Negative Ur Leukocyte Esterase 1+ H D Urine WBC (Auto) 7 Urine RBC (Auto) 1 Ur Epithelial Cells Rare Blood Type O POSITIVE Antibody Screen Negative 09/17/18 09/17/18 09/17/18 10:20 18:00 18:00 WBC 12.6 H RBC 3.95 Hgb 11.3 Hct 33.7 MCV 85.1 MCH 28.5 MCHC 33.5 RDW 14.8 Plt Count 191 MPV 8.5 Absolute Neuts (auto) Neutrophils % Lymphocytes % Monocytes % Eosinophils % Basophils % Nucleated RBC % Sodium 139 Potassium 4.9 Chloride 108 H Carbon Dioxide 24 Anion Gap 8 BUN 25 H Creatinine 1.2 Creat Clearance w eGFR 45.83 POC Glucometer 117 Random Glucose 201 H Calcium 8.5 Phosphorus Magnesium Total Bilirubin AST ALT Alkaline Phosphatase Total Protein Albumin Urine Color Urine Appearance Urine pH Ur Specific [place] Urine Protein Urine Glucose (UA) Urine Ketones Urine Blood Urine Nitrite Urine Bilirubin Urine Urobilinogen Ur Leukocyte Esterase Urine WBC (Auto) Urine RBC (Auto) Ur Epithelial Cells Blood Type Antibody Screen 09/17/18 09/18/18 09/18/18 21:19 05:30 05:30 WBC 11.0 H RBC 3.30 L Hgb 9.2 L Hct 27.6 L D MCV 83.7 MCH 28.0 MCHC 33.4 RDW 14.6 Plt Count 180 MPV 8.1 Absolute Neuts (auto) 9.5 H Neutrophils % 85.9 H D Lymphocytes % 7.4 L D Monocytes % 6.5 Eosinophils % 0.1 D Basophils % 0.1 Nucleated RBC % 0 Sodium 139 Potassium 4.6 Chloride 105 Carbon Dioxide 30 Anion Gap 3 L BUN 17 Creatinine 0.9 Creat Clearance w eGFR > 60 POC Glucometer 188 Random Glucose 126 H Calcium 8.1 L Phosphorus 4.1 Magnesium 1.8 Total Bilirubin 0.3 AST 96 H ALT 150 H Alkaline Phosphatase 59 Total Protein 5.2 L Albumin 2.6 L Urine Color Urine Appearance Urine pH Ur Specific [place] Urine Protein Urine Glucose (UA) Urine Ketones Urine Blood Urine Nitrite Urine Bilirubin Urine Urobilinogen Ur Leukocyte Esterase Urine WBC (Auto) Urine RBC (Auto) Ur Epithelial Cells Blood Type Antibody Screen 09/18/18 06:08 WBC RBC Hgb Hct MCV MCH MCHC RDW Plt Count MPV Absolute Neuts (auto) Neutrophils % Lymphocytes % Monocytes % Eosinophils % Basophils % Nucleated RBC % Sodium Potassium Chloride Carbon Dioxide Anion Gap BUN Creatinine Creat Clearance w eGFR POC Glucometer 129 Random Glucose Calcium Phosphorus Magnesium Total Bilirubin AST ALT Alkaline Phosphatase Total Protein Albumin Urine Color Urine Appearance Urine pH Ur Specific [place] Urine Protein Urine Glucose (UA) Urine Ketones Urine Blood Urine Nitrite Urine Bilirubin Urine Urobilinogen Ur Leukocyte Esterase Urine WBC (Auto) Urine RBC (Auto) Ur Epithelial Cells Blood Type Antibody Screen Active Medications Acetaminophen (Ofirmev Injection -) 1,000 mg IVPB Q6H PRN PRN Reason: FEVER Last Admin: 09/18/18 00:04 Dose: 1,000 mg Albuterol Sulfate (Ventolin Hfa Inhaler -) 2 puff IH Q6H PRN PRN Reason: SHORTNESS OF BREATH Aspirin (Ecotrin -) 81 mg PO DAILY [facility] Benztropine Mesylate (Cogentin -) 0.5 mg PO BID [facility] Last Admin: 09/17/18 21:15 Dose: Not Given Buspirone HCl (Buspar -) 10 mg PO TID [facility] Last Admin: 09/18/18 06:20 Dose: 10 mg Cholecalciferol (Vitamin D3 -) 800 unit PO DAILY [facility] Cyclobenzaprine HCl (Flexeril -) 10 mg PO BID [facility] Last Admin: 09/17/18 21:15 Dose: Not Given Diltiazem HCl (Cardizem Cd -) 180 mg PO DAILY [facility] Diphenhydramine HCl (Benadryl -) 25 mg PO Q6H PRN PRN Reason: FOR ITCHING Docusate Sodium (Colace -) 100 mg PO TID [facility] Last Admin: 09/18/18 06:20 Dose: 100 mg Duloxetine HCl (Cymbalta -) 60 mg PO DAILY [facility] Fentanyl (Sublimaze Injection -) 25 mcg IVPUSH [id number] PRN PRN Reason: PAIN-PACU ORDER X 4 DOSES ONLY Ferrous Sulfate (Feosol -) 325 mg PO DAILY [facility] Folic Acid (Folic Acid -) 1 mg PO DAILY [facility] Gabapentin (Neurontin -) 300 mg PO BID [facility] Last Admin: 09/17/18 21:15 Dose: Not Given Heparin Sodium (Porcine) (Heparin -) 5,000 unit SQ TID [facility] Cefazolin Sodium (Ancef 1 Gm Premixed Ivpb -) 1 gm in 50 mls @ 100 mls/hr IVPB Q8H-IV [facility] Last Admin: 09/18/18 02:06 Dose: 100 mls/hr Lactated Ringer's (Lactated Ringers Solution) 1,000 ml in 1,000 mls @ 125 mls/ hr IV ASDIR [facility] Last Admin: 09/17/18 17:45 Dose: 125 mls/hr Influenza Virus Vaccine Quadrival (Flulaval Quad [id number]) 60 mcg IM .ONCE ONE Stop: 09/18/18 09:01 Insulin Aspart (Novolog Vial Sliding Scale -) 1 vial SQ TIDAC [facility]; Protocol Last Admin: 09/18/18 06:17 Dose: Not Given Morphine Sulfate (Morphine Sulfate) 4 mg IVPUSH Q4H PRN PRN Reason: PAIN LEVEL 7 - 10 Stop: 09/18/18 13:54 Last Admin: 09/18/18 01:02 Dose: 4 mg Non-Formulary Medication (Fluticasone/Umeclidin/Vilanter [Trelegy Ellipta 100- 62.5-25]) 1 each IH DAILY [facility] Ondansetron HCl (Zofran Injection) 4 mg IVPUSH Q6H PRN PRN Reason: NAUSEA AND/OR VOMITING Ondansetron HCl (Zofran Injection) 4 mg IVPUSH Q6H PRN PRN Reason: NAUSEA Oxycodone HCl (Roxicodone -) 5 mg PO Q4H PRN PRN Reason: PAIN LEVEL 1-5 Stop: 09/18/18 13:54 Oxycodone HCl (Roxicodone -) 10 mg PO Q4H PRN PRN Reason: PAIN LEVEL 6-10 Stop: 09/18/18 13:54 Pantoprazole Sodium (Protonix -) 40 mg PO DAILY [facility] Pneumococcal Polyvalent Vaccine (Pneumovax -) 0.5 ml IM .ONCE ONE Stop: 09/18/18 09:01 Senna/Docusate Sodium (Pericolace -) 1 tablet PO [facility] Last Admin: 09/17/18 21:15 Dose: Not Given Trazodone HCl (Desyrel -) 500 mg PO [facility] Last Admin: 09/17/18 21:15 Dose: Not Given Ziprasidone (Geodon -) 20 mg PO DAILY [facility] ASSESSMENT/PLAN: 58 y/o F with PMHx of CAD (Cath in 2014 shows nonobstructive disease), COPD, DMII with diabetic CKD, Current smoker, GERD, HTN, HLD, Schizoaffective Disorder , Major depression will be monitored in ICU s/p L4-S1 Laminectomies and Arthrodesis. #Neuro S/P L4-S1 Laminectomies and Arthrodesis Hx of Schizoaffective Disorder, Major depression -L-Spine CT without contrast: Status post posterior fusion of L3-S1 in satisfactory alignment with interbody spacers present. Right lateral screw at L2 level is traversing lateral to the right pedicle and vertebral body. S1 posterior interpedicular screws are extending to beyond its anterior cortex, bilaterally. -Pain control via Morphine, Oxycodone -Continue home dose Benztropine, Buspirone, Cyclobenzaprine, Duloxetine, Gabapentin, Trazodone, Ziprasidone -Incentive spirometer -Neurochecks Q2H -Vital signs Q4h -Aspiration precautions #Cardio Hx of CAD, HTN, HLD -Continue home dose Aspirin, Diltiazem #Pulm Hx of COPD -Continue home dose Albuterol IH, Fluticasone/Umeclidin/Vilanter -Supplemental O2 to maintain SpO2 88-92% -Bilevel PRN to assist in the work of breathing #GI Hx of GERD -Ondansetron for Nausea -Bowel regimen via Docusate, Senna -Continue to monitor distension, Will have low threshold to place NG Tube to assist with decompression #Renal Hx of CKD -Continue to monitor Urine output, I&Os #Heme -Continue to monitor for acute blood loss anemia #Endo Hx of DMII -Hold home dose oral hypoglycemics -ISS BGMs ACHS #ID -Afebrile without leukocytosis -Continue Cefazolin 1gm Q8H #FEN -LR @ 125 mls/hr -Replete lytes PRN -Clear liquid diet, Advance as tolerated #PPx -DVT: Heparin, SCDs -GI: Omeprazole #LTD -Rocha catheter placed on 09/17 -RACHAEL Drain present on the Right placed on 09/17 Dispo: We will continue to follow the patient. Thank you for this consultative opportunity. Visit type - Emergency Visit Emergency Visit: Yes ED Registration Date: 09/17/18 Care time: The patient presented to the Emergency Department on the above date and was hospitalized for further evaluation of their emergent condition. - New Patient This patient is new to me today: No - Critical Care Critical Care patient: Yes Total Critical Care Time (in minutes): 36 Critical Care Statement: The care of this patient involved high complexity decision making to prevent further life threatening deterioration of the patient 's condition and/or to evaluate & treat vital organ system(s) failure or risk of failure.
--- NOTE | 2018-09-18 07:37 | OP ---
Operative Note - Note: Operative Date: 09/17/18 Pre-Operative Diagnosis: Lumbar spondylosis Operation: L3-S1 posterior fusion Findings: L3-L4 spondylosis noted Post-Operative Diagnosis: Other (L3-S1 spondylosis) Surgeon: Yehuda Corona Channel Executive: Suhas Thornton Anesthesia: General Operative Report Dictated: Yes
[2018-09-18] MEDS: HEPARIN NA (PORCINE) 5,000 UNITS/ML 1ML VIAL SQ SCH ×3 (07:58→22:00)
[2018-09-18] MEDS ORDERED: FLU VACCINE QUAD 60 MCG/0.5 ML (MDV 18-19) IM ONE (09:00)
[2018-09-18] MEDS ORDERED: PNEUMOCOCCAL 23 VACCINE 0.5 ML VIAL IM ONE (09:00)
[2018-09-18] MEDS: FERROUS SO4 325 MG TABLET (FP) PO SCH (09:38)
[2018-09-18] MEDS: GABAPENTIN 300 MG CAPSULE (FP) PO SCH ×2 (09:38→22:01)
[2018-09-18] MEDS: CYCLOBENZAPRINE HCL 10 MG TABLET (FP) PO SCH ×2 (09:38→22:00)
[2018-09-18] MEDS: ZIPRASIDONE 20 MG CAPSULE PO SCH (09:48)
[2018-09-18] MEDS: BENZTROPINE MESYLATE 0.5 MG TABLET (FP) PO SCH ×2 (09:49→22:00)
[2018-09-18] MEDS: CHOLECALCIFEROL (VITAMIN D3) 400 UNIT TABLET (FP) PO SCH (09:50)
[2018-09-18] MEDS: FOLIC ACID 1 MG TABLET (FP) PO SCH (09:52)
[2018-09-18] MEDS: PANTOPRAZOLE 40 MG TABLET (FP) PO SCH (09:53)
[2018-09-18] MEDS: DULoxetine HCL 30 MG CAPSULE.DR (FP) PO SCH (09:54)
[2018-09-18] MEDS: ASPIRIN COATED 81 MG TABLET.EC PO SCH (09:58)
--- NOTE | 2018-09-18 12:21 | PN ---
Teaching Attending Note Name of Resident: Jazmine Nolasco ATTENDING PHYSICIAN STATEMENT I saw and evaluated the patient. I reviewed the resident's note and discussed the case with the resident. I agree with the resident's findings and plan as documented. SUBJECTIVE: Patient seen and examined in the ICU. Still with pain 8/10 pain at the surgical site. Some nonproductive cough. Feels better after NGT was placed, less abdominal distention. OBJECTIVE: Intake & Output 09/15/18 09/16/18 09/17/18 09/18/18 23:59 23:59 23:59 23:59 Intake Total 3525 925 Output Total 1900 970 Balance 1625 -45 Weight 192 lb Last Vital Signs Temp Pulse Resp BP Pulse Ox 98.2 F 83 17 125/65 99 09/18/18 02:35 09/18/18 08:14 09/18/18 08:16 09/18/18 06:00 09/18/18 08:16 Active Medications Acetaminophen (Ofirmev Injection -) 1,000 mg IVPB Q6H PRN PRN Reason: FEVER Last Admin: 09/18/18 00:04 Dose: 1,000 mg Albuterol Sulfate (Ventolin Hfa Inhaler -) 2 puff IH Q6H PRN PRN Reason: SHORTNESS OF BREATH Aspirin (Ecotrin -) 81 mg PO DAILY [facility] Last Admin: 09/18/18 09:58 Dose: 81 mg Benztropine Mesylate (Cogentin -) 0.5 mg PO BID [facility] Last Admin: 09/18/18 09:49 Dose: 0.5 mg Buspirone HCl (Buspar -) 10 mg PO TID [facility] Last Admin: 09/18/18 06:20 Dose: 10 mg Cholecalciferol (Vitamin D3 -) 800 unit PO DAILY [facility] Last Admin: 09/18/18 09:50 Dose: 800 unit Cyclobenzaprine HCl (Flexeril -) 10 mg PO BID [facility] Last Admin: 09/18/18 09:38 Dose: 10 mg Diltiazem HCl (Cardizem Cd -) 180 mg PO DAILY [facility] Last Admin: 09/18/18 10:05 Dose: 180 mg Diphenhydramine HCl (Benadryl -) 25 mg PO Q6H PRN PRN Reason: FOR ITCHING Docusate Sodium (Colace -) 100 mg PO TID [facility] Last Admin: 09/18/18 06:20 Dose: 100 mg Duloxetine HCl (Cymbalta -) 60 mg PO DAILY [facility] Last Admin: 09/18/18 09:54 Dose: 60 mg Fentanyl (Sublimaze Injection -) 25 mcg IVPUSH [id number] PRN PRN Reason: PAIN-PACU ORDER X 4 DOSES ONLY Ferrous Sulfate (Feosol -) 325 mg PO DAILY [facility] Last Admin: 09/18/18 09:38 Dose: 325 mg Folic Acid (Folic Acid -) 1 mg PO DAILY [facility] Last Admin: 09/18/18 09:52 Dose: 1 mg Gabapentin (Neurontin -) 300 mg PO BID [facility] Last Admin: 09/18/18 09:38 Dose: 300 mg Heparin Sodium (Porcine) (Heparin -) 5,000 unit SQ TID [facility] Last Admin: 09/18/18 07:58 Dose: 5,000 unit Cefazolin Sodium (Ancef 1 Gm Premixed Ivpb -) 1 gm in 50 mls @ 100 mls/hr IVPB Q8H-IV [facility] Last Admin: 09/18/18 09:37 Dose: 100 mls/hr Lactated Ringer's (Lactated Ringers Solution) 1,000 ml in 1,000 mls @ 125 mls/ hr IV ASDIR [facility] Last Admin: 09/17/18 17:45 Dose: 125 mls/hr Insulin Aspart (Novolog Vial Sliding Scale -) 1 vial SQ TIDAC [facility]; Protocol Last Admin: 09/18/18 06:17 Dose: Not Given Morphine Sulfate (Morphine Sulfate) 4 mg IVPUSH Q4H PRN PRN Reason: PAIN LEVEL 7 - 10 Stop: 09/18/18 13:54 Last Admin: 09/18/18 07:57 Dose: 4 mg Non-Formulary Medication (Fluticasone/Umeclidin/Vilanter [Trelegy Ellipta 100- 62.5-25]) 1 each IH DAILY [facility] Ondansetron HCl (Zofran Injection) 4 mg IVPUSH Q6H PRN PRN Reason: NAUSEA AND/OR VOMITING Ondansetron HCl (Zofran Injection) 4 mg IVPUSH Q6H PRN PRN Reason: NAUSEA Oxycodone HCl (Roxicodone -) 5 mg PO Q4H PRN PRN Reason: PAIN LEVEL 1-5 Stop: 09/18/18 13:54 Oxycodone HCl (Roxicodone -) 10 mg PO Q4H PRN PRN Reason: PAIN LEVEL 6-10 Stop: 09/18/18 13:54 Pantoprazole Sodium (Protonix -) 40 mg PO DAILY [facility] Last Admin: 09/18/18 09:53 Dose: 40 mg Senna/Docusate Sodium (Pericolace -) 1 tablet PO [facility] Last Admin: 09/17/18 21:15 Dose: Not Given Trazodone HCl (Desyrel -) 500 mg PO HS [facility] Last Admin: 09/17/18 21:15 Dose: Not Given Ziprasidone (Geodon -) 20 mg PO DAILY [facility] Last Admin: 09/18/18 09:48 Dose: 20 mg GENERAL: A&Ox3, Mildly uncomfortable due to pain HEAD: NCAT EYES: PERRL, EOMI ENT: NPA in place, Moist mucous membranes. NECK: Supple LUNGS: Diminished breath sounds at the bases, No wheezes, no crackles. HEART: Regular rate and rhythm, normal S1 and S2 without murmur ABDOMEN: Soft, nontender, distended, + bowel sounds, no guarding BACK: RACHAEL Drain present on the Right EXTREMITIES: No edema NEUROLOGICAL: Non-focal SKIN: Warm, dry Laboratory Results - last 24 hr 09/17/18 09/17/18 09/17/18 18:00 18:00 21:19 WBC 12.6 H RBC 3.95 Hgb 11.3 Hct 33.7 MCV 85.1 MCH 28.5 MCHC 33.5 RDW 14.8 Plt Count 191 MPV 8.5 Absolute Neuts (auto) Neutrophils % Lymphocytes % Monocytes % Eosinophils % Basophils % Nucleated RBC % Sodium 139 Potassium 4.9 Chloride 108 H Carbon Dioxide 24 Anion Gap 8 BUN 25 H Creatinine 1.2 Creat Clearance w eGFR 45.83 POC Glucometer 188 Random Glucose 201 H Calcium 8.5 Phosphorus Magnesium Total Bilirubin AST ALT Alkaline Phosphatase Total Protein Albumin 09/18/18 09/18/18 09/18/18 05:30 05:30 06:08 WBC 11.0 H RBC 3.30 L Hgb 9.2 L Hct 27.6 L D MCV 83.7 MCH 28.0 MCHC 33.4 RDW 14.6 Plt Count 180 MPV 8.1 Absolute Neuts (auto) 9.5 H Neutrophils % 85.9 H D Lymphocytes % 7.4 L D Monocytes % 6.5 Eosinophils % 0.1 D Basophils % 0.1 Nucleated RBC % 0 Sodium 139 Potassium 4.6 Chloride 105 Carbon Dioxide 30 Anion Gap 3 L BUN 17 Creatinine 0.9 Creat Clearance w eGFR > 60 POC Glucometer 129 Random Glucose 126 H Calcium 8.1 L Phosphorus 4.1 Magnesium 1.8 Total Bilirubin 0.3 AST 96 H ALT 150 H Alkaline Phosphatase 59 Total Protein 5.2 L Albumin 2.6 L ASSESSMENT/PLAN: POD #1: L4-S1 Laminectomies and Arthrodesis. 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
[2018-09-18] MEDS: LACTATED RINGERS SOLUTION 1,000 ML/1,000 ML INFUS.BAG IV SCH (13:52)
--- NOTE | 2018-09-18 13:55 | PN ---
Progress Note (short form) - Note Progress Note: Anesthesia post op note. POD#1. S/P L3-S1 posterior fusion. under GA with intra thecal morphine. Pat seen and examined. VSS. C/O pain 04/22. Just received iv morph. No apparent post anesthesia complications. continue current care by primary team.
--- NOTE | 2018-09-18 14:14 | EKG ---
Test Reason : Blood Pressure : / mmHG Vent. Rate : 080 BPM Atrial Rate : 080 BPM P-R Int : 150 ms QRS Dur : 080 ms QT Int : 368 ms P-R-T Axes : 084 035 053 degrees QTc Int : 424 ms NORMAL SINUS RHYTHM WHEN COMPARED WITH ECG OF 16-FEB-2018 12:33, PREMATURE ATRIAL COMPLEXES ARE NO LONGER PRESENT Confirmed by DELFIN AGUIRRE MD ([id number]) on 09/18/2018 2:13:48 PM Referred By: Yehuda Corona Confirmed By:DELFIN AGUIRRE MD
--- NOTE | 2018-09-18 16:09 | PN ---
Teaching Attending Note Name of Resident: Damián Garrison ATTENDING PHYSICIAN STATEMENT I saw and evaluated the patient. I reviewed the resident's note and discussed the case with the resident. I agree with the resident's findings and plan as documented. SUBJECTIVE: No fever or chills. has back pain. abd was distended in am and NG was placed OBJECTIVE: NAD, NG in place HEENT: MMM. CV: RRR, Lungs:CTAB Abd: decreased BS , distended , NT Ext : no edema or erythema. R anterior knee scar. Neuro of LE : strength 4/5 in hip flexion b/l. 5/5 in knee flexion and extension and ankle dorsiflexion/ plantar flexion b/l. Knee jerk 2+ b/l. nl sensation to light touch ASSESSMENT AND PLAN: 58 y/o lady with h/o CAD, HTN, COPD, depression, CKD, DM , Schizoaffective disorder, and lumbar herniated disks who presented for lumbar surgery. 1- S/P L4-S1 lamincetomies. POD 1 - pain control - bowel regimen - DVT px - PT eval 2- h/o CAD, HTN: cont her home meds : cardizem, ASA 3- h/o DM: hold metformin - SSI 4- ileus : - cont NG tube - zofran - limit narcotics if possible 5- DVT PX: heparin
[2018-09-18] MEDS ORDERED: MORPHINE SULFATE 2 MG/ML VIAL IM ONE (16:13)
--- NOTE | 2018-09-18 16:22 | SURG ---
Surgery Structural Engineer Note Structural Engineer: Suhas Thornton PA-C Date of Service: 09/17/18 Diagnosis: L3/4 severe instability, L4/5 and L5/S1 disc herniations with stenosis and facet arthopathy Procedure: 1. Bilateral L3/4 Laminectomy 2. Bilateral L4/5 Laminectomy 3. Bilateral L5/S1 Laminectomy 4. L3/4 Transpedicular approach 5. L4/5 Transpedicular approach 6. L5/S1 Transpedicular approach 7. Posterior Osteotomy L3 8. Posterior Osteotomy L4 9. Posterior Osteotomy L5 10. Posterior Osteotomy S1 11. Microdissection 12. Interbody Cage L3/4 13. Interbody & Posterior/Lateral Arthodesis L3/4 14. Interbody Cage L4/5 15. Interbody & Posterior/Lateral Arthodesis L4/5 16. Interbody Cage L5/S1 17. Interbody & Posterior/Lateral Arthodesis L5/S1 18. L3-S1 Posterior segmental instrumentation (technically challenging) 19. Local allograft 20. Bilateral soft tissue advancement flaps (50 cm2) I was present for the entirety of the operative procedure. For further detail, please refer to operative report. Visit type - Case Type Case Type: Scheduled - Emergency Emergency Visit: No - New patient This patient is new to me today: Yes Date on this admission: 09/18/18
[2018-09-18] MEDS ORDERED: morphine SULFATE 4 MG/ML VIAL ONE (21:42)
[2018-09-18] MEDS: traZODone HCL 100 MG TABLET (FP) PO SCH (22:00)
[2018-09-18] MEDS: SENNOSIDES/DOCUSATE COMBO (SENNA PLUS) TABLET (UD) PO SCH (22:01)
[2018-09-18] MEDS ORDERED: morphine SULFATE 4 MG/ML VIAL IVPUSH PRN (22:51)
[2018-09-19] MEDS: CEFAZOLIN 1 GM/D5W 1 GM/50 ML BAG IVPB SCH ×3 (01:36→17:15)
--- NOTE | 2018-09-19 05:25 | PN ---
Physical Exam: SUBJECTIVE: Patient seen and examined at bed side , complain of N/V x 2 , abdomen still distended but better than yesterday , pain is controlled , she is passing flatus . OBJECTIVE: Vital Signs Period Temp Pulse Resp BP Sys/Mcdaniel Pulse Ox Last 24 Hr 98.3 F-98.3 F 82-94 17-21 125-142/65-82 95-99 GENERAL: A&Ox3, NAD HEAD: NCAT EYES: PERRL, EOMI ENT: NPA in place, Moist mucous membranes. NECK: Supple LUNGS: Diminished breath sounds at the bases, No wheezes, no crackles. HEART: Regular rate and rhythm, normal S1 and S2, 2/6 systolic murmur LUSB, LLSB ABDOMEN: Soft, nontender, distended, + bowel sounds, no guarding BACK: RACHAEL Drain present on the Right EXTREMITIES: No edema NEUROLOGICAL: Cranial nerves II through XII grossly intact. Normal speech. strength 5/5 upper and lower ext , sensation and reflexes are intact , local tenderness in surgery area , can raise legs up to 45 degree SKIN: Warm, dry Laboratory Results - last 24 hr 09/18/18 09/18/18 09/18/18 05:30 05:30 06:08 WBC 11.0 H RBC 3.30 L Hgb 9.2 L Hct 27.6 L D MCV 83.7 MCH 28.0 MCHC 33.4 RDW 14.6 Plt Count 180 MPV 8.1 Absolute Neuts (auto) 9.5 H Neutrophils % 85.9 H D Lymphocytes % 7.4 L D Monocytes % 6.5 Eosinophils % 0.1 D Basophils % 0.1 Nucleated RBC % 0 Sodium 139 Potassium 4.6 Chloride 105 Carbon Dioxide 30 Anion Gap 3 L BUN 17 Creatinine 0.9 Creat Clearance w eGFR > 60 POC Glucometer 129 Random Glucose 126 H Calcium 8.1 L Phosphorus 4.1 Magnesium 1.8 Total Bilirubin 0.3 AST 96 H ALT 150 H Alkaline Phosphatase 59 Total Protein 5.2 L Albumin 2.6 L 09/18/18 09/18/18 12:53 17:48 WBC RBC Hgb Hct MCV MCH MCHC RDW Plt Count MPV Absolute Neuts (auto) Neutrophils % Lymphocytes % Monocytes % Eosinophils % Basophils % Nucleated RBC % Sodium Potassium Chloride Carbon Dioxide Anion Gap BUN Creatinine Creat Clearance w eGFR POC Glucometer 128 134 Random Glucose Calcium Phosphorus Magnesium Total Bilirubin AST ALT Alkaline Phosphatase Total Protein Albumin Active Medications Generic Name Dose Route Start Last Admin Trade Name Freq PRN Reason Stop Dose Admin Acetaminophen 1,000 mg 09/17/18 20:03 09/18/18 14:00 Ofirmev Injection - IVPB 1,000 mg Q6H PRN Administration FEVER Albuterol Sulfate 2 puff 09/17/18 16:15 Ventolin Hfa Inhaler - IH Q6H PRN SHORTNESS OF BREATH Aspirin 81 mg 09/18/18 10:00 09/18/18 09:58 Ecotrin - PO 81 mg DAILY ANH Administration Benztropine Mesylate 0.5 mg 09/17/18 22:00 09/18/18 22:00 Cogentin - PO 0.5 mg BID ANH Administration Buspirone HCl 10 mg 09/17/18 22:00 09/18/18 22:00 Buspar - PO 10 mg TID ANH Administration Cholecalciferol 800 unit 09/18/18 10:00 09/18/18 09:50 Vitamin D3 - PO 800 unit DAILY ANH Administration Cyclobenzaprine HCl 10 mg 09/17/18 22:00 09/18/18 22:00 Flexeril - PO 10 mg BID ANH Administration Diltiazem HCl 180 mg 09/18/18 10:00 09/18/18 10:05 Cardizem Cd - PO 180 mg DAILY ANH Administration Diphenhydramine HCl 25 mg 09/17/18 13:55 Benadryl - PO Q6H PRN FOR ITCHING Docusate Sodium 100 mg 09/17/18 14:00 09/18/18 22:00 Colace - PO 100 mg TID ANH Administration Duloxetine HCl 60 mg 09/18/18 10:00 09/18/18 09:54 Cymbalta - PO 60 mg DAILY [facility] Administration Fentanyl 25 mcg 09/17/18 13:23 Sublimaze Injection - IVPUSH [id number] PRN PAIN-PACU ORDER X 4 DOSES ONLY Ferrous Sulfate 325 mg 09/18/18 10:00 09/18/18 09:38 Feosol - PO 325 mg DAILY ANH Administration Folic Acid 1 mg 09/18/18 10:00 09/18/18 09:52 Folic Acid - PO 1 mg DAILY ANH Administration Gabapentin 300 mg 09/17/18 22:00 09/18/18 22:01 Neurontin - PO 300 mg BID ANH Administration Heparin Sodium (Porcine) 5,000 unit 09/18/18 08:00 09/18/18 22:00 Heparin - SQ 5,000 unit TID ANH Administration Cefazolin Sodium 1 gm in 50 mls @ 100 mls/hr 09/17/18 18:00 09/19/18 01:36 Ancef 1 Gm Premixed Ivpb - IVPB 100 mls/hr Q8H-IV ANH Administration Lactated Ringer's 1,000 ml in 1,000 mls @ 125 mls/hr 09/17/18 14:00 09/18/18 13:52 Lactated Ringers Solution IV 125 mls/hr ASDIR ANH Administration Insulin Aspart 1 vial 09/18/18 07:00 09/18/18 17:44 Novolog Vial Sliding Scale - SQ Not Given TIDAC ANH Protocol Morphine Sulfate 4 mg 09/18/18 17:27 Morphine Sulfate IVPUSH Q4H PRN PAIN LEVEL 6-10 Non-Formulary Medication 1 each 09/18/18 10:00 Fluticasone/Umeclidin/Vilanter [Trelegy Ellipta 100-62.5-25] IH DAILY ANH Ondansetron HCl 4 mg 09/17/18 13:55 Zofran Injection IVPUSH Q6H PRN NAUSEA Pantoprazole Sodium 40 mg 09/18/18 10:00 09/18/18 09:53 Protonix - PO 40 mg DAILY ANH Administration Senna/Docusate Sodium 1 tablet 09/17/18 22:00 09/18/18 22:01 Pericolace - PO 1 tablet HS ANH Administration Trazodone HCl 500 mg 09/17/18 22:00 09/18/18 22:00 Desyrel - PO 500 mg HS ANH Administration Ziprasidone 20 mg 09/18/18 10:00 09/18/18 09:48 Geodon - PO 20 mg DAILY ANH Administration CBC, BMP 09/19/18 05:30 09/19/18 05:30 ASSESSMENT/PLAN: Pt is a 58 y/o lady with a significant past medical history of CAD (Cath in 2014 shows nonobstructive disease), COPD, NIDDM, CKD (Baseline Cr?) , GERD, HTN , HLD, Schizoaffective Disorder, amd Major depression who is POD#2 L4-S1 Laminectomies and Arthrodesis. # POD#2 L4-S1 Laminectomies and Arthrodesis. * Morphine 4 mg PO Q4H PRN pain 7-10, oxy 5 mg PRN for pain 1-5 * Tylenol 1 gm Q6H PRN, Total of 4 Doses * QTc 424 zofran for nausea * Bowel Regimen * low sodium diet * Incentive spirometry * PT * Cefazolin abx for proph #DM * Insulin Sliding Scale TID AC * hold oral hypoglycemics #COPD * cont home dose Albuterol IH, Fluticasone/Umeclidin/Vilanter #HTN * Cardizem 180 MG PO Daily #Schizoaffective D/O/ Mahor Depression * Continue home meds. Duloxetine 60 mg po daily * Continue Buspirone 10 mg po tid * cont Ziprasidone and Trazodone. starting. #FEN * LR@125cc/hr * Monitor Electrolytes * low na diet #DVT ppx: * SCD's/TEDs. HEP SQ TID #Dispo: * transfer out of ICU to tele Visit type - Emergency Visit Emergency Visit: Yes ED Registration Date: 09/17/18 Care time: The patient presented to the Emergency Department on the above date and was hospitalized for further evaluation of their emergent condition. - New Patient This patient is new to me today: No - Critical Care Critical Care patient: Yes Total Critical Care Time (in minutes): 45 Critical Care Statement: The care of this patient involved high complexity decision making to prevent further life threatening deterioration of the patient 's condition and/or to evaluate & treat vital organ system(s) failure or risk of failure. - Discharge Referral Referred to [facility] Med P.C.: No
[2018-09-19] MEDS ORDERED: PT OWN MED DRAWER 7, Y5N ONE ×6 (05:39→21:57)
[2018-09-19] MEDS: HEPARIN NA (PORCINE) 5,000 UNITS/ML 1ML VIAL SQ SCH ×3 (05:48→21:59)
[2018-09-19] MEDS: DOCUSATE SODIUM 100 MG CAPSULE (FP) PO SCH ×3 (05:48→21:59)
[2018-09-19] MEDS: busPIRone HCL 10 MG TABLET (FP) PO SCH ×2 (05:48→13:56)
[2018-09-19 05:57] LABS: BASO % 0.7 % (0-2.0); EOS % 0.2 % (0-4.5); HEMATOCRIT 25.8 % (32.4-45.2); HEMOGLOBIN 8.6 GM/dL (10.7-15.3); LYMPH % 14.7 % (8-40); MCH 28.1 pg (25.7-33.7); MCHC 33.6 g/dl (32.0-36.0); MEAN CELL VOLUME 83.8 fl (80-96); MONO % 6.7 % (3.8-10.2); NEUT % 77.7 % (42.8-82.8); PLATELET COUNT 161 K/MM3 (134-434); RBC 3.08 M/mm3 (3.60-5.2); RDW 14.6 % (11.6-15.6); WHITE BLOOD COUNT 8.4 K/mm3 (4.0-10.0)
[2018-09-19 06:42] LABS: ALBUMIN 2.6 g/dl (3.4-5.0); ALK PHOS 60 U/L (45-117); ANION GAP 4 MMOL/L (8-16); BILIRUBIN,TOTAL 0.2 mg/dL (0.2-1); BLOOD UREA NITROGEN 9 mg/dL (7-18); CALCIUM 8.1 mg/dL (8.5-10.1); CHLORIDE 101 mmol/L (98-107); CO2 33 mmol/L (21-32); CREATININE 0.7 mg/dL (0.55-1.3); GLUCOSE,RANDOM 126 mg/dL (74-106); MAGNESIUM 1.8 mg/dL (1.8-2.4); PHOSPHOROUS 2.8 mg/dL (2.5-4.9); POTASSIUM 4.2 mmol/L (3.5-5.1); SGOT/AST 32 U/L (15-37); SGPT/ALT 73 U/L (13-61); SODIUM 137 mmol/L (136-145); TOT PROT 5.3 g/dl (6.4-8.2)
[2018-09-19] MEDS: INSULIN SLIDING SCALE (NOVOLOG) 1 VIAL SQ SCH ×3 (07:16→16:52)
[2018-09-19] MEDS: ONDANSETRON 4 MG/2 ML VIAL IVPUSH PRN ×2 (09:13→15:34)
[2018-09-19] MEDS: BENZTROPINE MESYLATE 0.5 MG TABLET (FP) PO SCH (09:41)
[2018-09-19] MEDS: DULoxetine HCL 30 MG CAPSULE.DR (FP) PO SCH (09:41)
[2018-09-19] MEDS: ASPIRIN COATED 81 MG TABLET.EC PO SCH (09:41)
[2018-09-19] MEDS: CHOLECALCIFEROL (VITAMIN D3) 400 UNIT TABLET (FP) PO SCH (09:42)
[2018-09-19] MEDS: FERROUS SO4 325 MG TABLET (FP) PO SCH (09:42)
[2018-09-19] MEDS: PANTOPRAZOLE 40 MG TABLET (FP) PO SCH (09:42)
[2018-09-19] MEDS: CYCLOBENZAPRINE HCL 10 MG TABLET (FP) PO SCH ×2 (09:42→21:59)
[2018-09-19] MEDS: FOLIC ACID 1 MG TABLET (FP) PO SCH (09:42)
[2018-09-19] MEDS: GABAPENTIN 300 MG CAPSULE (FP) PO SCH ×2 (09:42→21:59)
[2018-09-19] MEDS: morphine SULFATE 4 MG/ML VIAL IVPUSH PRN ×2 (09:42→15:28)
[2018-09-19] MEDS: ZIPRASIDONE 20 MG CAPSULE PO SCH (09:42)
--- NOTE | 2018-09-19 12:37 | PN ---
Progress Note (short form) - Note Progress Note: Patient resting comfortably in bed. Took a few steps yesterday. Encouraged incentive spirometer. - Wean BOTTLE GAUGER gradually - GI/DVT prophylaxis - May transfer out of ICU - Continue RACHAEL for now
[2018-09-19] MEDS: oxyCODONE HCL 5 MG TABLET PO PRN (12:49)
--- NOTE | 2018-09-19 13:03 | PN ---
Teaching Attending Note Name of Resident: Davon Benjamin ATTENDING PHYSICIAN STATEMENT I saw and evaluated the patient. I reviewed the resident's note and discussed the case with the resident. I agree with the resident's findings and plan as documented. SUBJECTIVE: No fever or chills. No MACEDO , some nausea. vomited twice earlier. passed gas. has back pain OBJECTIVE: NAD. HEENT: MMM. CV: RRR. Lungs: CTAB Abd: NL BS , softer compared to yesterday, NT. Ext: no edema or erythema. R anterior knee scar. Neuro of LE: strength 4/5 in hip flexion b/l. 5/5 in knee flexion and extension and ankle dorsiflexion/ plantar flexion b/l. Knee jerk 2+ b/l. nl sensation to light touch ASSESSMENT AND PLAN 58 y/o lady with h/o CAD, HTN, COPD, depression, CKD, DM , Schizoaffective disorder, and lumbar herniated disks who presented for lumbar surgery. 1- S/P L4-S1 lamincetomies. POD 2 - pain control: cont morphine , and add oxycodone - bowel regimen - DVT px - PT eval - sat O2 87 % on RA. will cont O2 and spirometer and add Duo-Nebs 2- h/o CAD, HTN: cont her home meds : cardizem, ASA 3- H/o DM: hold metformin - SSI 4- Ileus : - s/p removal of NGT. has bowel sounds, flatus +, and abd exam improved - advance diet - zofran for nausea 5- DVT PX: heparin tx out of ICU.
--- NOTE | 2018-09-19 13:44 | PN ---
Physical Exam: SUBJECTIVE: Patient seen and examined at bedside. No acute events overnight. Passing flatus. OBJECTIVE: Vital Signs Period Temp Pulse Resp BP Sys/Mcdaniel Pulse Ox Last 24 Hr 98 F-98.6 F 74-94 17-21 126-142/50-82 93-97 GENERAL: Alert and Oriented x3. No acute distress HEAD: Atraumatic/Normocephalic EYES: PERRL, EOMI ENT: NPA in place, Moist mucous membranes. NECK: Supple LUNGS: Breath sounds decreased at bases . HEART: RRR nl s1s2 ABDOMEN: Distended, Tympanic to percussion. Nontender EXTREMITIES: No edema NEUROLOGICAL: SILT throughout. Strength 5/5 throughout. SKIN: No rashes or lesions appreciated Laboratory Results - last 24 hr 09/18/18 09/19/18 09/19/18 17:48 05:30 05:30 WBC 8.4 RBC 3.08 L Hgb 8.6 L Hct 25.8 L MCV 83.8 MCH 28.1 MCHC 33.6 RDW 14.6 Plt Count 161 MPV 8.0 Absolute Neuts (auto) 6.5 Neutrophils % 77.7 Lymphocytes % 14.7 D Monocytes % 6.7 Eosinophils % 0.2 D Basophils % 0.7 D Nucleated RBC % 0 Sodium 137 Potassium 4.2 Chloride 101 Carbon Dioxide 33 H Anion Gap 4 L BUN 9 Creatinine 0.7 Creat Clearance w eGFR > 60 POC Glucometer 134 Random Glucose 126 H Calcium 8.1 L Phosphorus 2.8 Magnesium 1.8 Total Bilirubin 0.2 AST 32 ALT 73 H Alkaline Phosphatase 60 Total Protein 5.3 L Albumin 2.6 L 09/19/18 09/19/18 05:45 11:06 WBC RBC Hgb Hct MCV MCH MCHC RDW Plt Count MPV Absolute Neuts (auto) Neutrophils % Lymphocytes % Monocytes % Eosinophils % Basophils % Nucleated RBC % Sodium Potassium Chloride Carbon Dioxide Anion Gap BUN Creatinine Creat Clearance w eGFR POC Glucometer 162 132 Random Glucose Calcium Phosphorus Magnesium Total Bilirubin AST ALT Alkaline Phosphatase Total Protein Albumin Active Medications Generic Name Dose Route Start Last Admin Trade Name Freq PRN Reason Stop Dose Admin Acetaminophen 1,000 mg 09/17/18 20:03 09/18/18 14:00 Ofirmev Injection - IVPB 1,000 mg Q6H PRN Administration FEVER Albuterol Sulfate 2 puff 09/17/18 16:15 Ventolin Hfa Inhaler - IH Q6H PRN SHORTNESS OF BREATH Albuterol/Ipratropium 1 amp 09/19/18 16:00 Duoneb - NEB RQID [facility] Aspirin 81 mg 09/18/18 10:00 09/19/18 09:41 Ecotrin - PO 81 mg DAILY ANH Administration Benztropine Mesylate 0.5 mg 09/17/18 22:00 09/19/18 09:41 Cogentin - PO 0.5 mg BID ANH Administration Buspirone HCl 10 mg 09/17/18 22:00 09/19/18 05:48 Buspar - PO 10 mg TID ANH Administration Cholecalciferol 800 unit 09/18/18 10:00 09/19/18 09:42 Vitamin D3 - PO 800 unit DAILY [facility]H Administration Cyclobenzaprine HCl 10 mg 09/17/18 22:00 09/19/18 09:42 Flexeril - PO 10 mg BID ANH Administration Diltiazem HCl 180 mg 09/18/18 10:00 09/19/18 09:41 Cardizem Cd - PO 180 mg DAILY [facility] Administration Diphenhydramine HCl 25 mg 09/17/18 13:55 Benadryl - PO Q6H PRN FOR ITCHING Docusate Sodium 100 mg 09/17/18 14:00 09/19/18 05:48 Colace - PO 100 mg TID ANH Administration Duloxetine HCl 60 mg 09/18/18 10:00 09/19/18 09:41 Cymbalta - PO 60 mg DAILY [facility] Administration Fentanyl 25 mcg 09/17/18 13:23 Sublimaze Injection - IVPUSH [id number] PRN PAIN-PACU ORDER X 4 DOSES ONLY Ferrous Sulfate 325 mg 09/18/18 10:00 09/19/18 09:42 Feosol - PO 325 mg DAILY ANH Administration Folic Acid 1 mg 09/18/18 10:00 09/19/18 09:42 Folic Acid - PO 1 mg DAILY AN[facility] Administration Gabapentin 300 mg 09/17/18 22:00 09/19/18 09:42 Neurontin - PO 300 mg BID ANH Administration Heparin Sodium (Porcine) 5,000 unit 09/18/18 08:00 09/19/18 05:48 Heparin - SQ 5,000 unit TID ANH Administration Cefazolin Sodium 1 gm in 50 mls @ 100 mls/hr 09/17/18 18:00 09/19/18 09:41 Ancef 1 Gm Premixed Ivpb - IVPB 100 mls/hr Q8H-IV ANH Administration Lactated Ringer's 1,000 ml in 1,000 mls @ 125 mls/hr 09/17/18 14:00 09/18/18 13:52 Lactated Ringers Solution IV 125 mls/hr ASDIR ANH Administration Insulin Aspart 1 vial 09/18/18 07:00 09/19/18 11:10 Novolog Vial Sliding Scale - SQ Not Given TIDAC [facility] Protocol Morphine Sulfate 4 mg 09/18/18 17:27 09/19/18 09:42 Morphine Sulfate IVPUSH 4 mg Q4H PRN Administration PAIN LEVEL 6-10 Non-Formulary Medication 1 each 09/18/18 10:00 Fluticasone/Umeclidin/Vilanter [Trelegy Ellipta 100-62.5-25] IH DAILY ANH Ondansetron HCl 4 mg 09/17/18 13:55 09/19/18 09:13 Zofran Injection IVPUSH 4 mg Q6H PRN Administration NAUSEA Oxycodone HCl 5 mg 09/19/18 10:53 09/19/18 12:49 Roxicodone - PO 5 mg Q4H PRN Administration PAIN LEVEL 1-5 Pantoprazole Sodium 40 mg 09/18/18 10:00 09/19/18 09:42 Protonix - PO 40 mg DAILY ANH Administration Senna/Docusate Sodium 1 tablet 09/17/18 22:00 09/18/18 22:01 Pericolace - PO 1 tablet HS ANH Administration Trazodone HCl 500 mg 09/17/18 22:00 09/18/18 22:00 Desyrel - PO 500 mg HS ANH Administration Ziprasidone 20 mg 09/18/18 10:00 09/19/18 09:42 Geodon - PO 20 mg DAILY ANH Administration ASSESSMENT/PLAN: Pt is a 58 y/o lady with a significant past medical history of CAD (Cath in 2014 shows nonobstructive disease), COPD, NIDDM, CKD (Baseline Cr?) , GERD, HTN , HLD, Schizoaffective Disorder, amd Major depression who is POD#0 L4-S1 Laminectomies and Arthrodesis. # POD#1 L4-S1 Laminectomies and Arthrodesis. -Morphine 4 mg PO Q4H PRN pain 7-10 -Oxycodone 5 MG pain 4-6. Q3HI. Tylenol 1 gm Q6H PRN--Total of 4 Doses -Zofran PRN nausea -Bowel Regimen #DM -Insulin Sliding Scale TID AC Will withold oral hypoglycemics #COPD home dose Albuterol IH, Fluticasone/Umeclidin/Vilanter #HTN -Cardizem 180 MG PO Daily #Schizoaffective D/O/ Mahor Depression -Continue home meds. Duloxetine 60 mg po daily -Continue Buspirone 10 mg po tid - Ziprasidone and Trazodone. #FEN LR@125cc/hr Monitor Electrolytes Sodium controlled diet #DVT ppx: HEP SQ TID #Dispo: ICU Visit type - Emergency Visit Emergency Visit: No - New Patient This patient is new to me today: No - Critical Care Critical Care patient: Yes Total Critical Care Time (in minutes): 35 Critical Care Statement: The care of this patient involved high complexity decision making to prevent further life threatening deterioration of the patient 's condition and/or to evaluate & treat vital organ system(s) failure or risk of failure. - Discharge Referral Referred to [facility] Med P.C.: No
[2018-09-19] MEDS: LACTATED RINGERS SOLUTION 1,000 ML/1,000 ML INFUS.BAG IV SCH ×2 (13:57→22:07)
[2018-09-19 15:39] VITALS: BMI 31.1
[2018-09-19] MEDS: ALBUTEROL SO4 2.5/IPRATROPIUM 0.5 INH SOL 3 ML VIAL.NEB. NEB SCH ×2 (15:44→20:11)
[2018-09-19] MEDS: SENNOSIDES/DOCUSATE COMBO (SENNA PLUS) TABLET (UD) PO SCH (21:59)
[2018-09-19] MEDS: traZODone HCL 100 MG TABLET (FP) PO SCH (22:00)
[2018-09-20] MEDS: BENZTROPINE MESYLATE 0.5 MG TABLET (FP) PO SCH ×3 (01:15→22:15)
[2018-09-20] MEDS ORDERED: PT OWN MED DRAWER 7, Y5N ONE ×5 (01:16→13:36)
[2018-09-20] MEDS: CEFAZOLIN 1 GM/D5W 1 GM/50 ML BAG IVPB SCH ×3 (05:06→17:22)
[2018-09-20] MEDS: oxyCODONE HCL 5 MG TABLET PO PRN ×2 (06:30→13:42)
[2018-09-20] MEDS: DOCUSATE SODIUM 100 MG CAPSULE (FP) PO SCH ×3 (07:24→22:15)
[2018-09-20] MEDS: busPIRone HCL 10 MG TABLET (FP) PO SCH ×3 (07:24→22:15)
[2018-09-20] MEDS: ONDANSETRON 4 MG/2 ML VIAL IVPUSH PRN ×2 (07:24→17:22)
[2018-09-20] MEDS: HEPARIN NA (PORCINE) 5,000 UNITS/ML 1ML VIAL SQ SCH ×3 (07:24→22:16)
[2018-09-20] MEDS: morphine SULFATE 4 MG/ML VIAL IVPUSH PRN ×2 (07:30→17:21)
[2018-09-20] MEDS: INSULIN SLIDING SCALE (NOVOLOG) 1 VIAL SQ SCH ×3 (07:48→17:05)
[2018-09-20] MEDS: ALBUTEROL SO4 2.5/IPRATROPIUM 0.5 INH SOL 3 ML VIAL.NEB. NEB SCH ×4 (08:33→20:33)
[2018-09-20] MEDS: CYCLOBENZAPRINE HCL 10 MG TABLET (FP) PO SCH ×2 (09:16→22:15)
[2018-09-20] MEDS: FOLIC ACID 1 MG TABLET (FP) PO SCH (09:16)
[2018-09-20] MEDS: ASPIRIN COATED 81 MG TABLET.EC PO SCH (09:16)
[2018-09-20] MEDS: GABAPENTIN 300 MG CAPSULE (FP) PO SCH ×2 (09:16→22:16)
[2018-09-20] MEDS: PANTOPRAZOLE 40 MG TABLET (FP) PO SCH (09:16)
[2018-09-20] MEDS: FERROUS SO4 325 MG TABLET (FP) PO SCH (09:16)
[2018-09-20] MEDS: DULoxetine HCL 30 MG CAPSULE.DR (FP) PO SCH (09:16)
[2018-09-20] MEDS: CHOLECALCIFEROL (VITAMIN D3) 400 UNIT TABLET (FP) PO SCH (09:17)
[2018-09-20] MEDS: ZIPRASIDONE 20 MG CAPSULE PO SCH (09:17)
--- NOTE | 2018-09-20 11:42 | PN ---
Progress Note (short form) - Note Progress Note: Patient stable with persisting pain as expected consistent with her surgery and narcotic history. Patient appears comfortable. RACHAEL drainage reducing. - Physical Therapy - Patient may benefit from Rehab - Pain control - GI/DVT prophylaxis - Continue RACHAEL - Patient appears stable for transfer to telemetry bed when medically cleared
[2018-09-20] MEDS: LACTATED RINGERS SOLUTION 1,000 ML/1,000 ML INFUS.BAG IV SCH (15:46)
[2018-09-20] MEDS: ACETAMINOPHEN 325 MG TABLET (FP) PO PRN (15:47)
[2018-09-20] MEDS ORDERED: POLYETHYLENE GLYCOL 3350 119 GM BTL PO ONE (16:37)
--- NOTE | 2018-09-20 16:37 | PN ---
Progress Note (short form) - Note Progress Note: Subjective: no fever or chills . no abd pain . back pain and MACEDO . requesting more narcotics for MACEDO Objective: Vital Signs: Last Vital Signs Temp Pulse Resp BP Pulse Ox 97.8 F 77 16 107/62 93 L 09/20/18 10:00 09/20/18 14:00 09/20/18 14:00 09/20/18 14:00 09/20/18 08:48 Laboratory Results - last 24 hr 09/19/18 09/20/18 09/20/18 16:48 06:41 12:10 POC Glucometer 154 120 179 Physical Exam: NAD. HEENT: MMM. CV: RRR. Lungs: CTAB Abd: NL BS , soft, NT. Ext: no edema or erythema. R anterior knee scar. Neuro of LE: strength 4/5 in hip flexion b/l. 5/5 in knee flexion and extension and ankle dorsiflexion/ plantar flexion b/l. Knee jerk 2+ b/l. nl sensation to light touch ASSESSMENT AND PLAN 58 y/o lady with h/o CAD, HTN, COPD, depression, CKD, DM , Schizoaffective disorder, and lumbar herniated disks who presented for lumbar surgery. 1- S/P L4-S1 lamincetomies. POD 3 - pain control: cont morphine , and oxycodone . will switch to po meds tomorrow - bowel regimen - DVT px 2- h/o CAD, HTN: cont her home meds : cardizem, ASA 3- H/o DM: hold metformin - SSI 4- Ileus : - flatus +, but no BM - DC IVF - zofran for nausea 5-hypoxia : suspect due to atelectasis . cont O2 and Nebs and will repeat Cxray in am hopefully can take off O2 in am DVT PX: heparin Rehab bed search . Visit type - Emergency Visit Emergency Visit: Yes ED Registration Date: 09/17/18 Care time: The patient presented to the Emergency Department on the above date and was hospitalized for further evaluation of their emergent condition. - New Patient This patient is new to me today: No - Critical Care Critical Care patient: No
[2018-09-20] MEDS ORDERED: ONDANSETRON 4 MG/2 ML VIAL IVPUSH PRN (20:42)
[2018-09-20] MEDS ORDERED: ALBUTEROL SO4 8 GM HFA INHALER IH PRN (20:42)
[2018-09-20] MEDS ORDERED: oxyCODONE HCL 5 MG TABLET PO PRN (20:42)
[2018-09-20] MEDS ORDERED: diphenhydrAMINE HCL 25 MG CAPSULE (FP) PO PRN (20:42)
[2018-09-20] MEDS ORDERED: morphine SULFATE 4 MG/ML VIAL IVPUSH PRN (20:42)
[2018-09-20] MEDS: traZODone HCL 100 MG TABLET (FP) PO SCH (22:15)
[2018-09-20] MEDS: SENNOSIDES/DOCUSATE COMBO (SENNA PLUS) TABLET (UD) PO SCH (22:16)
[2018-09-21] MEDS: CEFAZOLIN 1 GM/D5W 1 GM/50 ML BAG IVPB SCH ×3 (02:00→17:24)
[2018-09-21] MEDS: HEPARIN NA (PORCINE) 5,000 UNITS/ML 1ML VIAL SQ SCH ×3 (05:25→22:11)
[2018-09-21] MEDS: busPIRone HCL 10 MG TABLET (FP) PO SCH ×3 (05:25→22:05)
[2018-09-21] MEDS: DOCUSATE SODIUM 100 MG CAPSULE (FP) PO SCH ×3 (05:25→22:07)
[2018-09-21] MEDS: INSULIN SLIDING SCALE (NOVOLOG) 1 VIAL SQ SCH ×3 (06:12→17:24)
[2018-09-21 06:45] LABS: ANION GAP 5 MMOL/L (8-16); BLOOD UREA NITROGEN 9 mg/dL (7-18); CALCIUM 7.9 mg/dL (8.5-10.1); CHLORIDE 99 mmol/L (98-107); CO2 35 mmol/L (21-32); CREATININE 0.6 mg/dL (0.55-1.3); GLUCOSE,RANDOM 114 mg/dL (74-106); POTASSIUM 3.9 mmol/L (3.5-5.1); SODIUM 139 mmol/L (136-145)
[2018-09-21] MEDS: oxyCODONE HCL 5 MG TABLET PO PRN ×3 (07:33→16:08)
[2018-09-21] MEDS: ALBUTEROL SO4 2.5/IPRATROPIUM 0.5 INH SOL 3 ML VIAL.NEB. NEB SCH ×4 (07:40→20:45)
[2018-09-21 08:21] LABS: HEMATOCRIT 24.9 % (32.4-45.2); HEMOGLOBIN 8.4 GM/dL (10.7-15.3); MCH 28.7 pg (25.7-33.7); MCHC 33.8 g/dl (32.0-36.0); MEAN CELL VOLUME 84.8 fl (80-96); MEAN PLT VOLUME 8.5 fl (7.5-11.1); PLATELET COUNT 170 K/MM3 (134-434); RBC 2.94 M/mm3 (3.60-5.2); RDW 14.5 % (11.6-15.6); WHITE BLOOD COUNT 6.1 K/mm3 (4.0-10.0)
[2018-09-21] MEDS: FOLIC ACID 1 MG TABLET (FP) PO SCH (09:18)
[2018-09-21] MEDS: FERROUS SO4 325 MG TABLET (FP) PO SCH (09:18)
[2018-09-21] MEDS: ASPIRIN COATED 81 MG TABLET.EC PO SCH (09:18)
[2018-09-21] MEDS: CYCLOBENZAPRINE HCL 10 MG TABLET (FP) PO SCH ×2 (09:18→22:10)
[2018-09-21] MEDS: DULoxetine HCL 30 MG CAPSULE.DR (FP) PO SCH (09:19)
[2018-09-21] MEDS: GABAPENTIN 300 MG CAPSULE (FP) PO SCH ×2 (09:19→22:12)
[2018-09-21] MEDS: BENZTROPINE MESYLATE 0.5 MG TABLET (FP) PO SCH ×2 (09:20→22:06)
[2018-09-21] MEDS: POLYETHYLENE GLYCOL 3350 119 GM BTL PO SCH (09:20)
[2018-09-21] MEDS: ZIPRASIDONE 20 MG CAPSULE PO SCH (09:21)
[2018-09-21] MEDS: CHOLECALCIFEROL (VITAMIN D3) 400 UNIT TABLET (FP) PO SCH (09:22)
[2018-09-21] MEDS: PANTOPRAZOLE 40 MG TABLET (FP) PO SCH (09:22)
[2018-09-21] MEDS ORDERED: LACTULOSE 20 GM/30 ML UDC (FOR ORAL USE ONLY) PO ONE (09:40)
--- NOTE | 2018-09-21 13:57 | PN ---
Teaching Attending Note Name of Resident: Damián Garrison ATTENDING PHYSICIAN STATEMENT I saw and evaluated the patient. I reviewed the resident's note and discussed the case with the resident. I agree with the resident's findings and plan as documented. SUBJECTIVE: back pain and MACEDO , no visual changes, no weakness, or numbness. no cough, no SOB OBJECTIVE: NAD. HEENT: MMM. CV: RRR. Lungs: CTAB Abd: NL BS, soft, NT. Ext: no edema or erythema. R anterior knee scar. Neuro of LE: strength 4/5 in hip flexion b/l. 5/5 in knee flexion and extension and ankle dorsiflexion/ plantar flexion b/l. Knee jerk 2+ b/l. nl sensation to light touch ASSESSMENT AND PLAN 58 y/o lady with h/o CAD, HTN, COPD, depression, CKD, DM , Schizoaffective disorder, and lumbar herniated disks who presented for lumbar surgery. 1- S/P L4-S1 lamincetomies. POD 4 - pain control: dc morphine, add oxy 10 for pain 6-10 and cont oxycodone 5 mg for pain 1-5. will switch to po meds tomorrow - bowel regimen . give lactulose - DVT px - d/w Dr. Garces yesterday. RACHAEL drain to be pulled out today 2- h/o CAD, HTN: cont her home meds : cardizem, ASA 3- H/o DM: hold metformin - SSI 4- Ileus :resolved. passed gas bu tno BMs yet - add lactulose to her bowel regimen 5-Hypoxia : suspect due to atelectasis on a background of COPD. now resolved. Sat O2 > 91 on RA all day . cxray clear. can't perform pre-post ambulation pulse ox as she could not walk with PT . DVT PX: heparin Rehab bed search in progress. once RACHAEL is pulled out today, she will be ready medically and surgically
--- NOTE | 2018-09-21 17:22 | PN ---
Physical Exam: SUBJECTIVE: Patient seen and examined at bedside. No acute events overnight. OBJECTIVE: Vital Signs Period Temp Pulse Resp BP Sys/Mcdaniel Pulse Ox Last 24 Hr 98.0 F-99.1 F 80-99 12-23 106-148/51-92 92-93 GENERAL: NAD HEAD: Atraumatic/Normocephalic EYES: PERRL, EOMI ENT: Moist mucous membranes. NECK: Supple LUNGS: Breath sounds decreased at bases . HEART: RRR nl s1s2 ABDOMEN: Nontenderdistended, RACHAEL drain in place EXTREMITIES: No edema NEUROLOGICAL: SILT throughout. Strength 5/5 throughout. SKIN: No rashes or lesions appreciated Laboratory Results - last 24 hr 09/18/18 09/20/18 09/21/18 21:35 22:14 05:30 WBC RBC Hgb Hct MCV MCH MCHC RDW Plt Count MPV Sodium 139 Potassium 3.9 Chloride 99 Carbon Dioxide 35 H Anion Gap 5 L BUN 9 Creatinine 0.6 Creat Clearance w eGFR > 60 POC Glucometer 164 137 Random Glucose 114 H Calcium 7.9 L 09/21/18 09/21/18 09/21/18 05:30 05:39 11:38 WBC 6.1 RBC 2.94 L Hgb 8.4 L Hct 24.9 L MCV 84.8 MCH 28.7 MCHC 33.8 RDW 14.5 Plt Count 170 MPV 8.5 Sodium Potassium Chloride Carbon Dioxide Anion Gap BUN Creatinine Creat Clearance w eGFR POC Glucometer 124 148 Random Glucose Calcium 09/21/18 16:25 WBC RBC Hgb Hct MCV MCH MCHC RDW Plt Count MPV Sodium Potassium Chloride Carbon Dioxide Anion Gap BUN Creatinine Creat Clearance w eGFR POC Glucometer 166 Random Glucose Calcium Active Medications Generic Name Dose Route Start Last Admin Trade Name Freq PRN Reason Stop Dose Admin Acetaminophen 650 mg 09/20/18 14:52 09/20/18 15:47 Tylenol - PO 650 mg Q6H PRN Administration FEVER Albuterol Sulfate 2 puff 09/20/18 20:42 Ventolin Hfa Inhaler - IH Q6H PRN SHORTNESS OF BREATH Albuterol/Ipratropium 1 amp 09/19/18 16:00 09/21/18 15:36 Duoneb - NEB Not Given RQID ANH Aspirin 81 mg 09/21/18 10:00 09/21/18 09:18 Ecotrin - PO 81 mg DAILY ANH Administration Benztropine Mesylate 0.5 mg 09/20/18 22:00 09/21/18 09:20 Cogentin - PO 0.5 mg BID ANH Administration Buspirone HCl 10 mg 09/20/18 22:00 09/21/18 13:37 Buspar - PO 10 mg TID ANH Administration Cholecalciferol 800 unit 09/21/18 10:00 09/21/18 09:22 Vitamin D3 - PO 800 unit DAILY ANH Administration Cyclobenzaprine HCl 10 mg 09/20/18 22:00 09/21/18 09:18 Flexeril - PO 10 mg BID ANH Administration Diltiazem HCl 180 mg 09/21/18 10:00 09/21/18 09:18 Cardizem Cd - PO 180 mg DAILY [facility] Administration Diphenhydramine HCl 25 mg 09/20/18 20:42 Benadryl - PO Q6H PRN FOR ITCHING Docusate Sodium 100 mg 09/20/18 22:00 09/21/18 13:38 Colace - PO 100 mg TID ANH Administration Duloxetine HCl 60 mg 09/21/18 10:00 09/21/18 09:19 Cymbalta - PO 60 mg DAILY [facility] Administration Ferrous Sulfate 325 mg 09/21/18 10:00 09/21/18 09:18 Feosol - PO 325 mg DAILY ANH Administration Folic Acid 1 mg 09/21/18 10:00 09/21/18 09:18 Folic Acid - PO 1 mg DAILY ANH Administration Gabapentin 300 mg 09/20/18 22:00 09/21/18 09:19 Neurontin - PO 300 mg BID ANH Administration Heparin Sodium (Porcine) 5,000 unit 09/20/18 22:00 09/21/18 13:39 Heparin - SQ 5,000 unit TID [facility] Administration Cefazolin Sodium 1 gm in 50 mls @ 100 mls/hr 09/21/18 02:00 09/21/18 09:17 Ancef 1 Gm Premixed Ivpb - IVPB 100 mls/hr Q8H-IV ANH Administration Insulin Aspart 1 vial 09/21/18 07:00 09/21/18 11:42 Novolog Vial Sliding Scale - SQ Not Given TIDAC [facility] Protocol Ondansetron HCl 4 mg 09/20/18 20:42 09/21/18 07:35 Zofran Injection IVPUSH 4 mg Q6H PRN Administration NAUSEA Oxycodone HCl 5 mg 09/20/18 20:42 Roxicodone - PO Q4H PRN PAIN LEVEL 1-5 Oxycodone HCl 10 mg 09/21/18 07:12 09/21/18 16:08 Roxicodone - PO 10 mg Q4H PRN Administration PAIN LEVEL 6-10 Pantoprazole Sodium 40 mg 09/21/18 10:00 09/21/18 09:22 Protonix - PO 40 mg DAILY ANH Administration Polyethylene Glycol 17 gm 09/21/18 10:00 09/21/18 09:20 Miralax (For Daily Use) - PO 17 gm DAILY ANH Administration Senna/Docusate Sodium 1 tablet 09/20/18 22:00 09/20/18 22:16 Pericolace - PO 1 tablet HS ANH Administration Trazodone HCl 500 mg 09/20/18 22:00 09/20/18 22:15 Desyrel - PO 500 mg HS ANH Administration Ziprasidone 20 mg 09/21/18 10:00 09/21/18 09:21 Geodon - PO 20 mg DAILY ANH Administration ASSESSMENT/PLAN: Pt is a 58 y/o lady with a significant past medical history of CAD (Cath in 2014 shows nonobstructive disease), COPD, NIDDM, CKD (Baseline Cr?) , GERD, HTN , HLD, Schizoaffective Disorder, amd Major depression who is POD#4 L4-S1 Laminectomies and Arthrodesis. # POD#4 L4-S1 Laminectomies and Arthrodesis. -Morphine d/c'ed -Oxycodone 5 MG pain 1-5. Ox Oxy 10 for pain 6-10. Switch to po meds in am. -Zofran PRN nausea -Bowel Regimen. Lactulose 20 given today. #DM -Insulin Sliding Scale TID AC Hold metformin while in hospital #COPD home dose Albuterol IH, Fluticasone/Umeclidin/Vilanter #HTN -Cardizem 180 MG PO Daily #Schizoaffective D/O/ Mahor Depression -Continue home meds. Duloxetine 60 mg po daily -Continue Buspirone 10 mg po tid - Ziprasidone and Trazodone. #FEN No fluids Monitor Electrolytes Sodium controlled diet #DVT ppx: HEP SQ TID #Dispo: ICU Visit type - Emergency Visit Emergency Visit: Yes ED Registration Date: 09/17/18 Care time: The patient presented to the Emergency Department on the above date and was hospitalized for further evaluation of their emergent condition. - New Patient This patient is new to me today: No - Critical Care Critical Care patient: No - Discharge Referral Referred to [facility] Med P.C.: No
[2018-09-21] MEDS: traZODone HCL 100 MG TABLET (FP) PO SCH (22:09)
[2018-09-21] MEDS: SENNOSIDES/DOCUSATE COMBO (SENNA PLUS) TABLET (UD) PO SCH (22:12)
[2018-09-22] MEDS: CEFAZOLIN 1 GM/D5W 1 GM/50 ML BAG IVPB SCH (03:19)
[2018-09-22] MEDS: busPIRone HCL 10 MG TABLET (FP) PO SCH ×2 (06:19→14:57)
[2018-09-22] MEDS: oxyCODONE HCL 5 MG TABLET PO PRN ×2 (06:20→11:42)
[2018-09-22] MEDS: INSULIN SLIDING SCALE (NOVOLOG) 1 VIAL SQ SCH ×2 (06:21→12:31)
[2018-09-22] MEDS: HEPARIN NA (PORCINE) 5,000 UNITS/ML 1ML VIAL SQ SCH ×2 (06:21→14:57)
[2018-09-22] MEDS: DOCUSATE SODIUM 100 MG CAPSULE (FP) PO SCH ×2 (06:22→14:57)
[2018-09-22 06:25] LABS: HEMATOCRIT 23.2 % (32.4-45.2); MCH 28.8 pg (25.7-33.7); MCHC 34.4 g/dl (32.0-36.0); MEAN CELL VOLUME 83.9 fl (80-96); MEAN PLT VOLUME 7.9 fl (7.5-11.1); PLATELET COUNT 202 K/MM3 (134-434); RBC 2.76 M/mm3 (3.60-5.2); RDW 14.2 % (11.6-15.6); WHITE BLOOD COUNT 6.5 K/mm3 (4.0-10.0)
[2018-09-22 06:40] LABS: ANION GAP 5 MMOL/L (8-16); BLOOD UREA NITROGEN 12 mg/dL (7-18); CALCIUM 7.7 mg/dL (8.5-10.1); CHLORIDE 100 mmol/L (98-107); CO2 33 mmol/L (21-32); CREATININE 0.7 mg/dL (0.55-1.3); GLUCOSE,RANDOM 106 mg/dL (74-106); MAGNESIUM 1.4 mg/dL (1.8-2.4); PHOSPHOROUS 2.9 mg/dL (2.5-4.9); POTASSIUM 3.8 mmol/L (3.5-5.1); SODIUM 139 mmol/L (136-145)
[2018-09-22] MEDS ORDERED: MAGNESIUM OXIDE 400 MG TABLET (FP) PO ONE (07:57)
[2018-09-22] MEDS: ALBUTEROL SO4 2.5/IPRATROPIUM 0.5 INH SOL 3 ML VIAL.NEB. NEB SCH ×2 (08:02→11:43)
[2018-09-22] MEDS ORDERED: PT OWN MED DRAWER 7, Y5N ONE (09:39)
[2018-09-22] MEDS: DULoxetine HCL 30 MG CAPSULE.DR (FP) PO SCH (10:02)
[2018-09-22] MEDS: CYCLOBENZAPRINE HCL 10 MG TABLET (FP) PO SCH (10:04)
[2018-09-22] MEDS: BENZTROPINE MESYLATE 0.5 MG TABLET (FP) PO SCH (10:04)
[2018-09-22] MEDS: GABAPENTIN 300 MG CAPSULE (FP) PO SCH (10:04)
[2018-09-22] MEDS: FOLIC ACID 1 MG TABLET (FP) PO SCH (10:04)
[2018-09-22] MEDS: FERROUS SO4 325 MG TABLET (FP) PO SCH (10:05)
[2018-09-22] MEDS: ASPIRIN COATED 81 MG TABLET.EC PO SCH (10:06)
[2018-09-22] MEDS: PANTOPRAZOLE 40 MG TABLET (FP) PO SCH (10:06)
[2018-09-22] MEDS: CHOLECALCIFEROL (VITAMIN D3) 400 UNIT TABLET (FP) PO SCH (10:07)
[2018-09-22] MEDS: ZIPRASIDONE 20 MG CAPSULE PO SCH (10:07)
--- NOTE | 2018-09-22 10:11 | PN ---
Progress Note (short form) - Note Progress Note: 58yo F s/p L3-S1 PLIF, pt seen and examined at bedside. Pt accidentally pulled out her drain last night. Pt states that she continues to have some back pain, but controlled with back pain. Pt denies worsening numbness or weakness in her hands or feet. Denies fever, chills, n/v. Tolerating PO and urinating well. Last Vital Signs Temp Pulse Resp BP Pulse Ox 99.7 F H 85 20 130/63 97 09/22/18 10:01 09/22/18 08:00 09/22/18 08:00 09/22/18 08:00 09/21/18 20:35 CBC, BMP 09/22/18 05:30 09/22/18 05:30 PE: Gen: A&O x3 Resp: breathing comfortably Back: incision is clean with no erythema or discharge, drain site clean with no erythema or drainage. Ext; no weakness or numbness. Problem List - Problems (1) Spondylisthesis Assessment/Plan: Plan -pt appears to be stable for discharge from neurosurgery standpoint. -follow up with Dr. Corona, in 2 weeks Code(s): M43.10 - SPONDYLOLISTHESIS, SITE UNSPECIFIED
[2018-09-22] MEDS: ACETAMINOPHEN 325 MG TABLET (FP) PO PRN (11:44)
[2018-09-22 12:05] VITALS: PULSE 103; TEMP 99.2
--- NOTE | 2018-09-22 12:29 | DS ---
Physical Exam: SUBJECTIVE: Patient seen and examined at bedside. Removed RACHAEL early am per RN. OBJECTIVE: Vital Signs Period Temp Pulse Resp BP Sys/Mcdaniel Pulse Ox Last 24 Hr 98.2 F-99.7 F 76-103 14-20 99-135/63-81 97-97 PHYSICAL EXAM GENERAL: Atraumatic/Normocephalic HEAD: Atraumatic/Normocephalic EYES: PERRL, EOMI ENT: Moist mucous membranes. NECK: Supple LUNGS: Breath sounds decreased at bases . HEART: RRR nl s1s2 ABDOMEN: Nontender nondistended EXTREMITIES: No edema NEUROLOGICAL: SILT throughout. Strength 5/5 throughout. SKIN: No rashes or lesions appreciated LABS Laboratory Results - last 24 hr 09/21/18 09/22/18 09/22/18 16:25 05:30 05:30 WBC 6.5 RBC 2.76 L Hgb 8.0 L Hct 23.2 L MCV 83.9 MCH 28.8 MCHC 34.4 RDW 14.2 Plt Count 202 MPV 7.9 Sodium 139 Potassium 3.8 Chloride 100 Carbon Dioxide 33 H Anion Gap 5 L BUN 12 Creatinine 0.7 Creat Clearance w eGFR > 60 POC Glucometer 166 Random Glucose 106 Calcium 7.7 L Phosphorus 2.9 Magnesium 1.4 L 09/22/18 12:08 WBC RBC Hgb Hct MCV MCH MCHC RDW Plt Count MPV Sodium Potassium Chloride Carbon Dioxide Anion Gap BUN Creatinine Creat Clearance w eGFR POC Glucometer 165 Random Glucose Calcium Phosphorus Magnesium HOSPITAL COURSE: Date of Admission:09/17/18 Pt is a 58 y/o lady with a significant past medical history of CAD (Cath in 2014 shows nonobstructive disease), COPD, NIDDM, CKD (Baseline Cr?) , GERD, HTN , HLD, Schizoaffective Disorder, and Major depression who was admitted to [facility] for L4-S1 Laminectomies and Arthrodesis with Dr Mingo Corona. Pt required narcan in the PACU as well as BiPap as pt was noted to desaturate to 80's. Pt was placed on TROMBONE SLIDE ASSEMBLER as well as Zofran for nausea. Pt was observed to have an ileus and subsequently had placement of an NGT for decompression. Analgesics were ultimately switched to PO percocet upon discharge. Date of Discharge: 09/22/18 Minutes to complete discharge: 35 Discharge Summary Reason For Visit: LUMBAR INSTABILITY Current Active Problems Spondylisthesis (Acute) HTN (hypertension) (Chronic) Schizoaffective disorder (Chronic) Condition: Improved - Instructions Diet, Activity, Other Instructions: You presented to the hospital for laminectomy surgery with Dr Corona. Medications: Please resume all of your home medications as previously prescribed. You will be continued on your constipation medicines at the rehab facility in order to help facilitate a bowel movement while on narcotics You will have to ask for your pain medications as you need it depending on how severe your pain is. Both tablets are available for you at the detention Follow-up: Please follow up with Dr Corona in 1 week. Please follow up with your primary care doctor in 1 week. apply clean gauze on the back wound daily aggressive bowel regimen. use incentive spirometer QID Please return to the emergency department immediately if you begin to experience chest pain, nausea, shortness of breath, or lightheadedness. Referrals: Yehuda Corona MD, FAANS [Staff Physician] - Disposition: HALF-WAY FACILITY - Home Medications Comprehensive Discharge Medication List: Ambulatory Orders Albuterol Sulfate Inhaler - [Ventolin HFA Inhaler -] 2 inh IH Q6H #1 inh traZODone HCL [Desyrel -] 500 mg PO HS 11/27/16 Aspirin Coated [Ecotrin -] 81 mg PO DAILY 02/16/18 Benztropine Mesylate 0.5 mg PO BID 02/16/18 Buspirone HCl [Buspar -] 10 mg PO TID 02/16/18 Cyclobenzaprine HCl 10 mg PO BID 02/16/18 Diltiazem Cd [Cardizem Cd -] 180 mg PO DAILY 02/16/18 Duloxetine HCl [Cymbalta] 60 mg PO DAILY 02/16/18 Gabapentin 300 mg PO BID 02/16/18 Omeprazole 40 mg PO DAILY 02/16/18 Sennosides/Docusate Sodium [Senna Laxative Tablet] 1 each PO HS 02/16/18 Sitagliptin Phosphate [Januvia] 100 mg PO DAILY 02/16/18 Ziprasidone HCl [Geodon] 25 mg PO DAILY 02/16/18 metFORMIN HCL [Metformin ER Osmotic] 500 mg PO DAILY 02/16/18 Cholecalciferol (Vitamin D3) [Vitamin D -] 800 unit PO DAILY 09/10/18 Fluticasone/Umeclidin/Vilanter [Trelegy Ellipta 100-62.5-25] 1 each IH DAILY Albuterol 2.5/Ipratropium 0.5 [Duoneb -] 1 neb IH QID PRN #1 vial.neb. 09/22/18 Fluticasone/Salmeterol [Advair 250-50 Diskus] 1 each IH BID #1 blst.w.dev Oxycodone HCl/Acetaminophen [Percocet 10-325 mg Tablet] 1 each PO Q6H PRN #20 tablet MDD 4 tablets 09/22/18 Oxycodone HCl/Acetaminophen [Percocet 5-325 mg Tablet] 1 tab PO Q6H PRN #20 tablet MDD 4 tabs 09/22/18 Polyethylene Glycol 3350 [Miralax 119 gm Btl -] 17 gm PO DAILY #1 bottle This patient is new to me today: No Emergency Visit: No Critical Care patient: No - Discharge Referral Referred to [facility] No
[2018-09-22] MEDS: POLYETHYLENE GLYCOL 3350 119 GM BTL PO SCH (12:30)
--- NOTE | 2018-09-22 12:51 | PN ---
Teaching Attending Note Name of Resident: Damián Garrison ATTENDING PHYSICIAN STATEMENT I saw and evaluated the patient. I reviewed the resident's note and discussed the case with the resident. I agree with the resident's findings and plan as documented. SUBJECTIVE: No fever or chills. has back pain OBJECTIVE: NAD. HEENT: MMM. CV: RRR. Lungs: CTAB Abd: NL BS, soft, NT. Ext: no edema or erythema. R anterior knee scar. ASSESSMENT AND PLAN 58 y/o lady with h/o CAD, HTN, COPD, depression, CKD, DM , Schizoaffective disorder, and lumbar herniated disks who presented for lumbar surgery. 1- S/P L4-S1 lamincetomies. POD 5 - pain control: cont percocet after dc - Bowel regimen . - patient puled out her Chapin drain. cover with clean gauze and change daily. 2- h/o CAD, HTN: cont her home meds: cardizem, ASA 3- H/o DM: resume metformin 4- Ileus :resolved. cont bowel regimen after dc 5-Hypoxia: due to atelectasis. resolved now. continue Nebs and inhalers after dc . cont incentive spirometer DC to rehab today.
[2018-09-22 15:55] VITALS: BP 109/60
== END 2018-09-22 15:42 | DRG 454 ==
LOC: JSAMEDAYSX 06:05 → JICU 17:36 → J2W 09-21 00:14
PROVIDERS: ADMIT Neurological Surgery; ATTEND Internal Medicine
PROC: 0SG1071 Fusion of 2 or more Lumbar Vertebral Joints with Autologous Tissue Substitute, Posterior Approach, Posterior Column, Open Approach (ICD-10-PCS; 2018-09-17)
PROC: 0SG3071 Fusion of Lumbosacral Joint with Autologous Tissue Substitute, Posterior Approach, Posterior Column, Open Approach (ICD-10-PCS; 2018-09-17)
PROC: 0SG30AJ Fusion of Lumbosacral Joint with Interbody Fusion Device, Posterior Approach, Anterior Column, Open Approach (ICD-10-PCS; 2018-09-17)
PROC: 0QB00ZZ Excision of Lumbar Vertebra, Open Approach (ICD-10-PCS; 2018-09-17)
PROC: 0JX70ZB Transfer Back Subcutaneous Tissue and Fascia with Skin and Subcutaneous Tissue, Open Approach (ICD-10-PCS; 2018-09-17)
PROC: B01BZZZ Fluoroscopy of Spinal Cord (ICD-10-PCS; 2018-09-17)
PROC: 0SG10AJ Fusion of 2 or more Lumbar Vertebral Joints with Interbody Fusion Device, Posterior Approach, Anterior Column, Open Approach (ICD-10-PCS; principal; 2018-09-17 08:00)
DX: M51.26 Other intervertebral disc displacement, lumbar region (principal); K56.7 Ileus, unspecified; J98.11 Atelectasis; M48.061 Spinal stenosis, lumbar region without neurogenic claudication; I25.10 Atherosclerotic heart disease of native coronary artery without angina pectoris; I12.9 Hypertensive chronic kidney disease with stage 1 through stage 4 chronic kidney disease, or unspecified chronic kidney disease; N18.9 Chronic kidney disease, unspecified; E11.9 Type 2 diabetes mellitus without complications; K21.9 Gastro-esophageal reflux disease without esophagitis; E78.5 Hyperlipidemia, unspecified; M43.16 Spondylolisthesis, lumbar region; F25.9 Schizoaffective disorder, unspecified; J44.9 Chronic obstructive pulmonary disease, unspecified; R09.02 Hypoxemia; M47.896 Other spondylosis, lumbar region
CPT/HCPCS: 36415; 71045-TC-FY; 72131-TC; 80048; 80053; 81003; 81015; 82962; 83735; 84100; 85025; 85027; 86850; 86900; 86901; 93005; 93010; 94640; 94660; 94760; 94761; 97116-GP; 97162-GP; J0131; J1644

== ENCOUNTER 2018-10-17 09:43 | Observation (INO) | payer OTHER ==
[2018-10-17 10:02] VITALS: BMI 31.1
[2018-10-17 10:31] LABS: BASO % 1.7 % (0-2.0); EOS % 4.4 % (0-4.5); HEMATOCRIT 24.7 % (32.4-45.2); HEMOGLOBIN 8.1 GM/dL (10.7-15.3); LYMPH % 23.7 % (8-40); MCH 25.2 pg (25.7-33.7); MCHC 32.7 g/dl (32.0-36.0); MEAN CELL VOLUME 77.2 fl (80-96); MEAN PLT VOLUME 7.2 fl (7.5-11.1); MONO % 7.5 % (3.8-10.2); NEUT % 62.7 % (42.8-82.8); PLATELET COUNT 281 K/MM3 (134-434); RDW 16.7 % (11.6-15.6); WHITE BLOOD COUNT 5.6 K/mm3 (4.0-10.0)
--- NOTE | 2018-10-17 10:35 | PDOC ---
Attending Attestation - Resident Resident Name: Suhas Leslie - ED Attending Attestation I have performed the following: I have examined & evaluated the patient, The case was reviewed & discussed with the resident, I agree w/resident's findings & plan, Exceptions are as noted - HPI HPI: 10/17/18 10:35 This is a 58 yo F h/o CAD, NIDDM, ? CKD, COPD, Schizoaffective disorder who presents from [facility] due to low hemoglobin. Pt s/p laminectomy on September 17. Since then, she has noted persistent back pain She denies any chest pain, palpitations, recent fevers chills, sweats. Denies SOB, dysuria, freq, urgency. Denies abdominal pain and denies blood in her urine or stool. Denies recent trauma and denies recent travel. - Physicial Exam PE: 10/17/18 10:34 GENERAL: The patient is in no acute distress. ENT: Ears normal, nares patent, oropharynx clear without exudates. Moist mucous membranes. NECK: Normal range of motion, supple LUNGS: Breath sounds equal, clear to auscultation bilaterally. No wheezes, and no crackles. HEART:Regular rate and rhythm, normal S1 and S2 without murmur, rub or gallop. ABDOMEN: Soft, nontender, normoactive bowel sounds. EXTREMITIES: Normal range of motion, no edema. NEUROLOGICAL: Cranial nerves II through XII grossly intact. Normal speech. No focal neurological deficits. SKIN: Warm, Dry, normal turgor, no rashes or lesions noted. - Medical Decision Making 10/17/18 10:35 EKG =- Twelve-lead EKG was performed and reviewed by me. There is normal sinus rhythm with a normal rate. The axis is normal. The intervals are normal. There are no ST or T wave abnormalities. Impression: Normal twelve-lead EKG 10/17/18 11:[address] Medrano Requests Admission and 1 unit PRBC
--- NOTE | 2018-10-17 10:40 | PDOC ---
History of Present Illness - General Chief Complaint: Blood Transfusion Stated Complaint: LOW HEMOGLOBIN COUNT Time Seen by Provider: 10/17/18 10:12 History Source: Patient Exam Limitations: No Limitations - History of Present Illness Initial Comments: 58 yo F w a pmh of CAD, NIDDM, CKD - per chart but per patient, schizoaffective disorder, depression who presents to the ER bc her [facility] - [facility] - sent her over for a low H and H. She states she has never had an episode of anemia as far as she knows and has no personal or family history of blood disorders. On 09/17 she had a laminectomy surgery here at [facility] - since that procedure she has had consistent back pain which has not gotten better. She denies any infections or fevers since the procedure. She does endorse occasional headaches and has a history of gallstones. She takes percocet and gabapentin for her back pain. She is currently at a rehab surgery recovering from the surgery and getting physical therapy there. Patient had a Hb level of 7.8 at [facility]. She denies any chest pain, palpitations, recent fevers chills, sweats. Denies SOB, dysuria, freq, urgency. Also denies abdominal pain and denies blood in her urine or stool. Denies recent trauma and denies recent travel. PCP: Shey Engle PSH: SBO, hysterectomy, appendectomy Social Hx: Former smoker 21 years ago. Denies current alcohol cigarettes or other substance usage. Allergies: NKA, NKDA Past History - Past Medical History Allergies/Adverse Reactions: Allergies Allergy/AdvReac Type Severity Reaction Status Date / Time No Known Allergies Allergy Verified 10/17/18 09:50 Home Medications: Ambulatory Orders Albuterol Sulfate Inhaler - [Ventolin HFA Inhaler -] 2 inh IH Q6H #1 inh traZODone HCL [Desyrel -] 500 mg PO HS 11/27/16 Aspirin Coated [Ecotrin -] 81 mg PO DAILY 02/16/18 Benztropine Mesylate 0.5 mg PO BID 02/16/18 Buspirone HCl [Buspar -] 10 mg PO TID 02/16/18 Cyclobenzaprine HCl 10 mg PO BID 02/16/18 Diltiazem Cd [Cardizem Cd -] 180 mg PO DAILY 02/16/18 Duloxetine HCl [Cymbalta] 60 mg PO DAILY 02/16/18 Gabapentin 300 mg PO BID 02/16/18 Omeprazole 40 mg PO DAILY 02/16/18 Sennosides/Docusate Sodium [Senna Laxative Tablet] 1 each PO HS 02/16/18 Sitagliptin Phosphate [Januvia] 100 mg PO DAILY 02/16/18 Ziprasidone HCl [Geodon] 25 mg PO DAILY 02/16/18 metFORMIN HCL [Metformin ER Osmotic] 500 mg PO DAILY 02/16/18 Cholecalciferol (Vitamin D3) [Vitamin D -] 800 unit PO DAILY 09/10/18 Fluticasone/Umeclidin/Vilanter [Trelegy Ellipta 100-62.5-25] 1 each IH DAILY Albuterol 2.5/Ipratropium 0.5 [Duoneb -] 1 neb IH QID PRN #1 vial.neb. 09/22/18 Fluticasone/Salmeterol [Advair 250-50 Diskus] 1 each IH BID #1 blst.w.dev Oxycodone HCl/Acetaminophen [Percocet 10-325 mg Tablet] 1 each PO Q6H PRN #20 tablet MDD 4 tablets 09/22/18 Oxycodone HCl/Acetaminophen [Percocet 5-325 mg Tablet] 1 tab PO Q6H PRN #20 tablet MDD 4 tabs 09/22/18 Polyethylene Glycol 3350 [Miralax 119 gm Btl -] 17 gm PO DAILY #1 bottle Anemia: No Asthma: No Cancer: No Cardiac Disorders: Yes (CHEST PAINS) CVA: No COPD: Yes CHF: No Dementia: No Diabetes: Yes GI Disorders: Yes (gall stones, GERD) Disorders: No HTN: No Hypercholesterolemia: Yes Liver Disease: No Seizures: No Thyroid Disease: No - Surgical History Abdominal Surgery: No Appendectomy: Yes Cardiac Surgery: No Cholecystectomy: No Lung Surgery: No Neurologic Surgery: Yes (back) Orthopedic Surgery: Yes (RT KNEE REPLACEMENT) - Immunization History Immunization Up to Date: No - Suicide/Smoking/Psychosocial Hx Smoking History: Former smoker Have you smoked in the past 12 months: Yes Number of Cigarettes Smoked Daily: 20 Information on smoking cessation initiated: No 'Breaking Loose' booklet given: 09/11/18 Hx Alcohol Use: No Drug/Substance Use Hx: No Substance Use Type: None Hx Substance Use Treatment: No Review of Systems - Review of Systems Able to Perform ROS?: Yes Comments:: CONSTITUTIONAL: Present: Fatigue Absent: fever, no chills EYES: Absent: visual changes ENT: Absent: ear pain, no sore throat CARDIOVASCULAR: Absent: chest pain, no palpitations RESPIRATORY: Absent: cough, no SOB GI: Absent: abdominal pain, no nausea, no vomiting, no constipation, no diarrhea GENITOURINARY: Absent: dysuria, no frequency, no hematuria MUSKULOSKELETAL: Present: Back pain Absent: no arthralgia, no myalgia SKIN: Absent: rash NEURO: Absent: headache *Physical Exam - Vital Signs Last Vital Signs Temp Pulse Resp BP Pulse Ox 97.8 F 73 18 122/57 L 95 10/17/18 09:50 10/17/18 09:50 10/17/18 09:50 10/17/18 09:50 10/17/18 09:50 - Physical Exam Comments: GENERAL: Well-appearing, well-nourished. No apparent distress. HEENT: Normocephalic, atraumatic. PERRL, EOM intact. CARDIOVASCULAR: Normal S1, S2. Regular rate and rhythm. PULMONARY: No evidence of respiratory distress. Lungs clear to auscultation bilaterally. No wheezing, rales or rhonchi. ABDOMEN: DistendedSoft, non-distended, non-tender. EXTREMITIES: Normal ROM in all four extremities. No gross deformities. SKIN: Warm, dry. No rash NEUROLOGICAL: No focal neurological deficits. ED Treatment Course - LABORATORY CBC & Chemistry Diagram: 10/17/18 10:25 10/17/18 10:25 - ADDITIONAL ORDERS Additional order review: 10/17/18 10:25 RBC 3.20 L MCV 77.2 L MCHC 32.7 RDW 16.7 H MPV 7.2 L Neutrophils % 62.7 Lymphocytes % 23.7 D Monocytes % 7.5 Eosinophils % 4.4 D Basophils % 1.7 Medical Decision Making - Medical Decision Making 58 yo F w a pmh of CAD, NIDDM, CKD - per chart but per patient, schizoaffective disorder, depression who presents to the ER bc her [facility] - [facility] - sent her over for a low H and H. She states she has never had an episode of anemia as far as she knows and has no personal or family history of blood disorders. On 09/17 she had a laminectomy surgery here at [facility] - since that procedure she has had consistent back pain which has not gotten better. She denies any infections or fevers since the procedure. She does endorse occasional headaches and has a history of gallstones. She takes percocet and gabapentin for her back pain. She is currently at a rehab surgery recovering from the surgery and getting physical therapy there. Patient had a Hb level of 7.8 at [facility]. VS: diastolic hypotension, otherwise wnl. DDx IBNLT: Anemia, GI bleed, urinary bleed, electrolyte/metabolic disturbance. Plan: Labs, Urine, EKG, CXR, PCP consult, Blood transfusion, admit obs. - Hb has been in the 8's since early September. Spoke with Dr. Medrano who requests for patient to receive one unit of blood and have patient admitted to Obs. *DC/Admit/Observation/Transfer Diagnosis at time of Disposition: Anemia, Anemia requiring transfusions - Discharge Dispostion Condition at time of disposition: Stable Decision to Admit order: Yes - Referrals Referrals: Shey Engle [Primary Care Provider] - - Patient Instructions - Post Discharge Activity
[2018-10-17 10:44] LABS: INR 0.91 (0.83-1.09); PROTHROMBIN TIME (PATIENT) 10.7 SEC (9.7-13.0)
[2018-10-17 11:04] LABS: ALBUMIN 3.1 g/dl (3.4-5.0); ALK PHOS 109 U/L (45-117); ANION GAP 8 MMOL/L (8-16); BILIRUBIN,TOTAL 0.2 mg/dL (0.2-1); BLOOD UREA NITROGEN 17 mg/dL (7-18); CALCIUM 8.9 mg/dL (8.5-10.1); CHLORIDE 98 mmol/L (98-107); CO2 25 mmol/L (21-32); GLUCOSE,RANDOM 142 mg/dL (74-106); POTASSIUM 4.5 mmol/L (3.5-5.1); SGOT/AST 12 U/L (15-37); SGPT/ALT 13 U/L (13-61); SODIUM 131 mmol/L (136-145); TOT PROT 6.5 g/dl (6.4-8.2)
--- NOTE | 2018-10-17 11:41 | EKG ---
Test Reason : Blood Pressure : / mmHG Vent. Rate : 071 BPM Atrial Rate : 071 BPM P-R Int : 154 ms QRS Dur : 080 ms QT Int : 416 ms P-R-T Axes : 062 014 033 degrees QTc Int : 452 ms NORMAL SINUS RHYTHM NORMAL ECG WHEN COMPARED WITH ECG OF 18-SEP-2018 12:42, NO SIGNIFICANT CHANGE WAS FOUND Confirmed by CHUY ARTIS MD ([id number]) on 10/17/2018 11:40:45 AM Referred By: Confirmed By:CHUY ARTIS MD
--- NOTE | 2018-10-17 12:35 | HP ---
Admitting History and Physical - Admission History of Present Illness: 58 yo F w a pmh of CAD, NIDDM, CKD - per chart but per patient, schizoaffective disorder, depression who presents to the ER bc her senior living - [facility] - sent her over for a low H and H. She states she has never had an episode of anemia as far as she knows and has no personal or family history of blood disorders. On 09/17 she had a laminectomy surgery here at [facility] - since that procedure she has had consistent back pain which has not gotten better. She denies any infections or fevers since the procedure. She does endorse occasional headaches and has a history of gallstones - Past Medical History Cardiovascular: Yes: CAD, HTN, Hyperlipdemia Gastrointestinal: Yes: GERD Heme/Onc: Yes: Anemia Psych: Yes: Other (schizoaffective ds) Endocrine: Yes: Diabetes Mellitus - Smoking History Smoking history: Former smoker Have you smoked in the past 12 months: Yes Aproximately how many cigarettes per day: 20 - Alcohol/Substance Use Hx Alcohol Use: No Home Medications - Allergies Allergies/Adverse Reactions: Allergies Allergy/AdvReac Type Severity Reaction Status Date / Time No Known Allergies Allergy Verified 10/17/18 09:50 - Home Medications Home Medications: Ambulatory Orders Albuterol Sulfate Inhaler - [Ventolin HFA Inhaler -] 2 inh IH Q6H #1 inh traZODone HCL [Desyrel -] 500 mg PO HS 11/27/16 Aspirin Coated [Ecotrin -] 81 mg PO DAILY 02/16/18 Benztropine Mesylate 0.5 mg PO BID 02/16/18 Buspirone HCl [Buspar -] 10 mg PO TID 02/16/18 Cyclobenzaprine HCl 10 mg PO BID 02/16/18 Diltiazem Cd [Cardizem Cd -] 180 mg PO DAILY 02/16/18 Duloxetine HCl [Cymbalta] 60 mg PO DAILY 02/16/18 Gabapentin 300 mg PO BID 02/16/18 Omeprazole 40 mg PO DAILY 02/16/18 Sennosides/Docusate Sodium [Senna Laxative Tablet] 1 each PO HS 02/16/18 Sitagliptin Phosphate [Januvia] 100 mg PO DAILY 02/16/18 Ziprasidone HCl [Geodon] 25 mg PO DAILY 02/16/18 metFORMIN HCL [Metformin ER Osmotic] 500 mg PO DAILY 02/16/18 Cholecalciferol (Vitamin D3) [Vitamin D -] 800 unit PO DAILY 09/10/18 Fluticasone/Umeclidin/Vilanter [Trelegy Ellipta 100-62.5-25] 1 each IH DAILY Albuterol 2.5/Ipratropium 0.5 [Duoneb -] 1 neb IH QID PRN #1 vial.neb. 09/22/18 Fluticasone/Salmeterol [Advair 250-50 Diskus] 1 each IH BID #1 blst.w.dev Oxycodone HCl/Acetaminophen [Percocet 10-325 mg Tablet] 1 each PO Q6H PRN #20 tablet MDD 4 tablets 09/22/18 Oxycodone HCl/Acetaminophen [Percocet 5-325 mg Tablet] 1 tab PO Q6H PRN #20 tablet MDD 4 tabs 09/22/18 Polyethylene Glycol 3350 [Miralax 119 gm Btl -] 17 gm PO DAILY #1 bottle Review of Systems - Review of Systems Cardiovascular: reports: No Symptoms Respiratory: reports: No Symptoms Gastrointestinal: denies: Abdominal Pain, Melena, Rectal Bleeding Genitourinary: reports: No Symptoms Musculoskeletal: reports: Back Pain Physical Examination Vital Signs: Vital Signs Temperature 97.8 F 10/17/18 09:50 Pulse Rate 73 10/17/18 09:50 Respiratory Rate 18 10/17/18 09:50 Blood Pressure 122/57 L 10/17/18 09:50 O2 Sat by Pulse Oximetry (%) 95 10/17/18 10:02 Cardiovascular: Yes: Regular Rate and Rhythm Respiratory: Yes: Regular, CTA Bilaterally Gastrointestinal: Yes: Normal Bowel Sounds, Soft Labs: CBC, BMP 10/17/18 10:25 10/17/18 10:25 Problem List - Problems (1) Discogenic pain Assessment/Plan: -pt -pain control Code(s): M54.9 - DORSALGIA, UNSPECIFIED (2) Anemia requiring transfusions Assessment/Plan: prbc Code(s): D64.9 - ANEMIA, UNSPECIFIED (3) HTN (hypertension) Assessment/Plan: monitor Code(s): I10 - ESSENTIAL (PRIMARY) HYPERTENSION
[2018-10-17 14:30] LABS: URINE APPEARANCE CLEAR; URINE BILIRUBIN NEGATIVE (NEGATIVE); URINE COLOR YELLOW; URINE GLUCOSE (UA) NEGATIVE (NEGATIVE); URINE KETONE NEGATIVE (NEGATIVE); URINE LEUK ESTERASE NEGATIVE (NEGATIVE); URINE NITRITE NEGATIVE (NEGATIVE); URINE PROTEIN NEGATIVE (NEGATIVE); URINE UROBILINOGEN 0.2 mg/dL (0.2-1.0)
[2018-10-17 17:17] VITALS: TEMP 98.3
[2018-10-17] MEDS ORDERED: ALBUTEROL SO4 2.5/IPRATROPIUM 0.5 INH SOL 3 ML VIAL.NEB. NEB PRN (18:52)
[2018-10-17] MEDS ORDERED: GABAPENTIN 100 MG CAPSULE (FP) PO SCH (22:00)
[2018-10-17] MEDS ORDERED: BENZTROPINE MESYLATE 0.5 MG TABLET (FP) PO SCH (22:00)
[2018-10-17] MEDS ORDERED: SENNOSIDES/DOCUSATE COMBO (SENNA PLUS) TABLET (UD) PO SCH (22:00)
[2018-10-17] MEDS ORDERED: busPIRone HCL 10 MG TABLET (FP) PO SCH (22:00)
[2018-10-17] MEDS ORDERED: CYCLOBENZAPRINE HCL 10 MG TABLET (FP) PO SCH (22:00)
[2018-10-17] MEDS ORDERED: traZODone HCL 100 MG TABLET (FP) PO SCH (22:00)
[2018-10-18 02:18] VITALS: BP 128/76; PULSE 78
[2018-10-18] MEDS ORDERED: sitaGLIPtin PHOSPHATE 100 MG TABLET (FP) PO SCH (07:00)
[2018-10-18] MEDS ORDERED: POLYETHYLENE GLYCOL 3350 119 GM BTL PO SCH (10:00)
[2018-10-18] MEDS ORDERED: PATIENT'S OWN MEDICATION (NON-FORMULARY) (Metformin Hcl [Metformin Er Osmotic] 500 MG) PO SCH (10:00)
[2018-10-18] MEDS ORDERED: DULoxetine HCL 30 MG CAPSULE.DR (FP) PO SCH (10:00)
[2018-10-18] MEDS ORDERED: ZIPRASIDONE 20 MG CAPSULE PO SCH (10:00)
[2018-10-18] MEDS ORDERED: PANTOPRAZOLE 40 MG TABLET (FP) PO SCH (10:00)
[2018-10-18] MEDS ORDERED: ASPIRIN COATED 81 MG TABLET.EC PO SCH (10:00)
[2018-10-18] MEDS ORDERED: CHOLECALCIFEROL (VITAMIN D3) 400 UNIT TABLET (FP) PO SCH (10:00)
== END 2018-10-17 18:00 ==
LOC: JER 09:43 → JERBED 10:57
PROVIDERS: ADMIT Family Medicine; ATTEND Family Medicine
PROC: 30233N1 Transfusion of Nonautologous Red Blood Cells into Peripheral Vein, Percutaneous Approach (ICD-10-PCS; principal; 2018-10-17)
DX: D64.9 Anemia, unspecified (principal); I25.10 Atherosclerotic heart disease of native coronary artery without angina pectoris; E11.22 Type 2 diabetes mellitus with diabetic chronic kidney disease; I12.9 Hypertensive chronic kidney disease with stage 1 through stage 4 chronic kidney disease, or unspecified chronic kidney disease; N18.9 Chronic kidney disease, unspecified; Z79.84 Long term (current) use of oral hypoglycemic drugs; F25.9 Schizoaffective disorder, unspecified; J44.9 Chronic obstructive pulmonary disease, unspecified; K21.9 Gastro-esophageal reflux disease without esophagitis; E78.00 Pure hypercholesterolemia, unspecified
CPT/HCPCS: 36415; 36430; 36511; 71045-TC-FY; 80053; 81003; 82550; 84484; 85025; 85610; 86850; 86900; 86901; 86922; 93005; 93010; 99284-25; G0378; P9038; P9058

== ENCOUNTER 2019-04-16 08:00 | Inpatient (IN) | payer OTHER ==
[2019-04-15 16:25] VITALS: BMI 31.0
[2019-04-22 10:11] LABS: INR 0.88 (0.83-1.09); PROTHROMBIN TIME (PATIENT) 10.4 SEC (9.7-13.0)
[2019-04-22 10:14] LABS: ACTIVATED PTT 34.4 SECONDS (25.2-36.5)
[2019-04-22] MEDS ORDERED: ALBUTEROL SO4 0.083% IH SOL 2.5 MG/3 ML VIAL.NEB. NEB ONE ×5 (11:50→20:30)
[2019-04-22] MEDS ORDERED: BUDESONIDE 0.25 MG/2ML INH SUSP VIAL NEB ONE (11:50)
[2019-04-22] MEDS ORDERED: SUCCINYLCHOLINE CHLORIDE 200 MG/10 ML SYRINGE ONE (15:50)
[2019-04-22] MEDS ORDERED: PROPOFOL 20 ML ONE (15:50)
[2019-04-22] MEDS ORDERED: ROCURONIUM BROMIDE 50 MG/5 ML SYRINGE ONE (15:50)
[2019-04-22] MEDS ORDERED: DEXAMETHASONE SOD PHOSPHATE 4 MG/1 ML VIAL ONE (16:02)
[2019-04-22] MEDS ORDERED: ONDANSETRON 4 MG/2 ML VIAL ONE (16:02)
[2019-04-22] MEDS ORDERED: KETOROLAC TROMETHAMINE 30 MG/1 ML VIAL ONE (16:02)
[2019-04-22] MEDS ORDERED: SODIUM CHLORIDE 0.9% P/F 10 ML VIAL IJ ONE (16:02)
[2019-04-22] MEDS ORDERED: ceFAZolin SODIUM 1 GM VIAL ONE (16:02)
[2019-04-22] MEDS ORDERED: VANCOMYCIN 1,000 MG VIAL (RESTRICTED TO ID ONLY) ONE (16:09)
[2019-04-22] MEDS ORDERED: VANCOMYCIN 1,000 MG VIAL (RESTRICTED TO ID ONLY) IVPB ONE (16:13)
[2019-04-22] MEDS ORDERED: ceFAZolin SODIUM 1 GM VIAL IVPB ONE (16:24)
[2019-04-22] MEDS ORDERED: ONDANSETRON 4 MG/2 ML VIAL IVPUSH PRN (16:51)
[2019-04-22] MEDS ORDERED: LIDOCAINE 1%/EPI 1:100000 (20 ML MULTI DOSE VIAL) IJ ONE (16:53)
[2019-04-22] MEDS ORDERED: BACITRACIN 50,000 UNITS VIAL TP ONE (17:21)
[2019-04-22] MEDS ORDERED: GENTAMICIN SO4 80 MG/2 ML VIAL IVPB ONE (17:21)
[2019-04-22] MEDS ORDERED: HYDROGEN PEROXIDE 473 ML PO ONE ×2 (17:23→17:57)
[2019-04-22] MEDS ORDERED: EPHEDRINE SULFATE/0.9% NACL/PF 50 MG/10 ML SYRINGE NR ONE (18:06)
[2019-04-22] MEDS ORDERED: NEOSTIGMINE METHYLSULFATE 0.5 MG/1 ML - 10 ML MDV ONE (18:16)
--- NOTE | 2019-04-22 18:47 | HP ---
History & Physical Update - History History: No Change - Physical Physical: No Change - Assessment Assessment: No Change - Plan Plan: No Change
[2019-04-22] MEDS ORDERED: diphenhydrAMINE HCL 25 MG CAPSULE (FP) PO PRN (18:50)
[2019-04-22] MEDS ORDERED: HYDROmorphone HCL CARPU-JECT 2 MG/1 ML DISP.SYRIN IVPUSH PRN (18:56)
[2019-04-22] MEDS ORDERED: ALBUTEROL SO4 8 GM HFA INHALER IH PRN (19:00)
--- NOTE | 2019-04-22 19:01 | OP ---
Operative Note - Note: Operative Date: 04/22/19 Pre-Operative Diagnosis: Cervical stenosis w/ radiculopathy Operation: C4 corpectomy, PEEK cage, anterior plate Post-Operative Diagnosis: Same as Pre-op Surgeon: Yehuda Corona Lens Blank Gauger: Dain López Anesthesiologist/CIRCUIT COURT CLERK: Jane Almanza Anesthesia: General Estimated Blood Loss (mls): 30 Drains & Tubes with Location: RACHAEL Drains, Volume Out (mls): 375 Fluid Volume Replaced (mls): 1,000 Operative Report Dictated: Yes
[2019-04-22] MEDS ORDERED: HYDROmorphone HCl 2 MG/ML VIAL IVPUSH PRN (19:48)
[2019-04-22] MEDS ORDERED: traZODone HCL 100 MG TABLET (FP) PO SCH (22:00)
[2019-04-22] MEDS: DOCUSATE SODIUM 100 MG CAPSULE (FP) PO SCH (22:37)
[2019-04-22] MEDS: CYCLOBENZAPRINE HCL 10 MG TABLET (FP) PO SCH (22:37)
[2019-04-22] MEDS: GABAPENTIN 100 MG CAPSULE (FP) PO SCH (22:37)
[2019-04-22] MEDS: BENZTROPINE MESYLATE 0.5 MG TABLET (FP) PO SCH (22:37)
[2019-04-22] MEDS: busPIRone HCL 10 MG TABLET (FP) PO SCH (22:37)
[2019-04-22] MEDS: SENNOSIDES/DOCUSATE COMBO (SENNA PLUS) TABLET (UD) PO SCH (22:37)
[2019-04-23] MEDS ORDERED: ceFAZolin SODIUM 1 GM VIAL ONE ×3 (01:24→18:28)
[2019-04-23] MEDS ORDERED: DEXTROSE 5%-WATER - 50 ML IVPB ONE ×3 (01:24→18:28)
[2019-04-23] MEDS: LACTATED RINGERS SOLUTION 1,000 ML/1,000 ML INFUS.BAG IV SCH (01:44)
[2019-04-23] MEDS: CEFAZOLIN 1 GM in DEXTROSE 5%-WATER - 50 ML IVPB SCH ×3 (01:44→18:32)
[2019-04-23] MEDS: busPIRone HCL 10 MG TABLET (FP) PO SCH ×3 (06:38→21:40)
[2019-04-23] MEDS: DOCUSATE SODIUM 100 MG CAPSULE (FP) PO SCH ×3 (06:38→21:41)
[2019-04-23 08:13] LABS: HEMATOCRIT 43.2 % (32.4-45.2); MCH 27.5 pg (25.7-33.7); MCHC 32.5 g/dl (32.0-36.0); MEAN CELL VOLUME 84.6 fl (80-96); MEAN PLT VOLUME 8.6 fl (7.5-11.1); PLATELET COUNT 229 K/MM3 (134-434); RBC 5.11 M/mm3 (3.60-5.2); RDW 14.1 % (11.6-15.6); WHITE BLOOD COUNT 14.7 K/mm3 (4.0-10.0)
--- NOTE | 2019-04-23 08:43 | PN ---
Progress Note (short form) - Note Progress Note: POD1 s/p C4 corpectomy with cage placement, under GA. Doing well, resting comfortably with pain controlled, VSS. No anesthetic issues/complications noted.
[2019-04-23 08:44] LABS: ANION GAP 4 MMOL/L (8-16); BLOOD UREA NITROGEN 11.7 mg/dL (7-18); CALCIUM 8.7 mg/dL (8.5-10.1); CHLORIDE 103 mmol/L (98-107); CO2 31 mmol/L (21-32); CREATININE 0.8 mg/dL (0.55-1.3); GLUCOSE,RANDOM 159 mg/dL (74-106); POTASSIUM 4.8 mmol/L (3.5-5.1); SODIUM 138 mmol/L (136-145)
--- NOTE | 2019-04-23 09:03 | HP ---
Admitting History and Physical - Admission History of Present Illness: 58 y/o lady with h/o CAD, HTN, COPD, depression, CKD, DM , Schizoaffective disorder s/p cervical spine surgery pt lethargic-difficult to arouse opens eyes - Past Medical History Cardiovascular: Yes: CAD, HTN, Hyperlipdemia Gastrointestinal: Yes: GERD Heme/Onc: Yes: Anemia Psych: Yes: Other (schizoaffective ds) Endocrine: Yes: Diabetes Mellitus - Smoking History Smoking history: Current every day smoker Have you smoked in the past 12 months: Yes Aproximately how many cigarettes per day: 20 - Alcohol/Substance Use Hx Alcohol Use: No Home Medications - Allergies Allergies/Adverse Reactions: Allergies Allergy/AdvReac Type Severity Reaction Status Date / Time No Known Allergies Allergy Verified 04/22/19 11:26 - Home Medications Home Medications: Ambulatory Orders Albuterol Sulfate Inhaler - [Ventolin HFA Inhaler -] 2 inh IH Q6H #1 inh traZODone HCL [Desyrel -] 500 mg PO HS 11/27/16 Benztropine Mesylate 0.5 mg PO BID 02/16/18 Buspirone HCl [Buspar -] 10 mg PO TID 02/16/18 Cyclobenzaprine HCl 10 mg PO BID 02/16/18 Diltiazem Cd [Cardizem Cd -] 180 mg PO DAILY 02/16/18 Duloxetine HCl [Cymbalta] 60 mg PO DAILY 02/16/18 Gabapentin 300 mg PO BID 02/16/18 Omeprazole 40 mg PO DAILY 02/16/18 Sennosides/Docusate Sodium [Senna Laxative Tablet] 1 each PO HS 02/16/18 Sitagliptin Phosphate [Januvia] 100 mg PO DAILY 02/16/18 Ziprasidone HCl [Geodon] 25 mg PO DAILY 02/16/18 metFORMIN HCL [Metformin ER Osmotic] 500 mg PO DAILY 02/16/18 Cholecalciferol (Vitamin D3) [Vitamin D -] 800 unit PO DAILY 09/10/18 Fluticasone/Umeclidin/Vilanter [Trelegy Ellipta 100-62.5-25] 1 each IH DAILY Polyethylene Glycol 3350 [Miralax 119 gm Btl -] 17 gm PO DAILY #1 bottle Review of Systems - Review of Systems Constitutional: reports: Lethargy Physical Examination Vital Signs: Vital Signs Temperature 98.4 F 04/23/19 06:00 Pulse Rate 91 H 04/23/19 06:00 Respiratory Rate 20 04/23/19 06:00 Blood Pressure 139/81 04/23/19 06:00 O2 Sat by Pulse Oximetry (%) 95 04/22/19 21:30 Cardiovascular: Yes: S1, S2 Respiratory: Yes: Regular, CTA Bilaterally Gastrointestinal: Yes: Normal Bowel Sounds, Soft Neurological: Yes: Lethargy, Other (opems eyes) Labs: CBC, BMP 04/23/19 07:25 04/23/19 07:25 Problem List - Problems (1) Lethargy Assessment/Plan: stat labs and abg maybe due to anesthesia if no improvement then imaging Code(s): R53.83 - OTHER FATIGUE (2) Cervical disc disease Assessment/Plan: per NS Code(s): M50.90 - CERVICAL DISC DISORDER, UNSP, UNSPECIFIED CERVICAL REGION (3) Diabetes Assessment/Plan: bgm Code(s): E11.9 - TYPE 2 DIABETES MELLITUS WITHOUT COMPLICATIONS (4) HTN (hypertension) Assessment/Plan: monitor Code(s): I10 - ESSENTIAL (PRIMARY) HYPERTENSION (5) Schizoaffective disorder Code(s): F25.9 - SCHIZOAFFECTIVE DISORDER, UNSPECIFIED
--- NOTE | 2019-04-23 09:21 | PN ---
Progress Note (short form) - Note Progress Note: POD#1 please disregard note
[2019-04-23 09:34] LABS: ALBUMIN 3.3 g/dl (3.4-5.0); ALK PHOS 182 U/L (45-117); BILIRUBIN,TOTAL 0.3 mg/dL (0.2-1); SGOT/AST 15 U/L (15-37); SGPT/ALT 41 U/L (13-61)
[2019-04-23] MEDS ORDERED: ZIPRASIDONE 20 MG CAPSULE PO SCH (10:00)
[2019-04-23] MEDS ORDERED: HEPARIN NA (PORCINE) 5,000 UNITS/ML 1ML VIAL SQ SCH ×2 (10:00→14:00)
[2019-04-23 10:16] LABS: ARTERIAL BLD GAS O2 SATURATION 94.5 % (95-98); ARTERIAL BLOOD GAS BASE EXCESS 0.9 meq/l (-2-2); ARTERIAL BLOOD GAS PCO2 66.1 mmHg (35-45); ARTERIAL BLOOD GAS PO2 79.7 mmHg (80-100); ARTERIAL BLOOD GAS pH 7.27 (7.35-7.45)
[2019-04-23 10:20] LABS: ALLENS TEST POSITIVE
[2019-04-23] MEDS ORDERED: PT OWN MED DRAWER 7, Y5N ONE ×4 (10:37→21:07)
[2019-04-23] MEDS: GABAPENTIN 100 MG CAPSULE (FP) PO SCH ×2 (10:42→21:40)
[2019-04-23] MEDS: FOLIC ACID 1 MG TABLET (FP) PO SCH (10:42)
[2019-04-23] MEDS: POLYETHYLENE GLYCOL 3350 119 GM BTL PO SCH (10:43)
[2019-04-23] MEDS: CYCLOBENZAPRINE HCL 10 MG TABLET (FP) PO SCH ×2 (10:43→21:41)
[2019-04-23] MEDS: DULoxetine HCL 30 MG CAPSULE.DR PO SCH (10:43)
[2019-04-23] MEDS: PANTOPRAZOLE 40 MG TABLET (FP) PO SCH (10:43)
[2019-04-23] MEDS: BENZTROPINE MESYLATE 0.5 MG TABLET (FP) PO SCH ×2 (10:43→21:40)
[2019-04-23] MEDS: CHOLECALCIFEROL (VIT D3) 400 UNIT (10 MCG) TABLET PO SCH (10:52)
--- NOTE | 2019-04-23 12:59 | CON.PULM ---
Consult Consult Specialty:: PULMONARY Referred by:: MEET Reason for Consultation:: HYPOXEMIA - History of Present Illness Chief Complaint: NECK DISCOMFORT POST-OP History of Present Illness: 58 y/o lady with h/o CAD, HTN, COPD, depression, CKD, DM , Schizoaffective disorder s/p cervical spine surgery is now lying in bed appearing stable. She wants to remove her cervical collar because it is uncomfortable. - History Source History Provided By: Patient, Medical Record Limitations to Obtaining History: Clinical Condition - Past Medical History LIGHTING ADVISER: No: Alzheimer's Cardio/Vascular: Yes: CAD, HTN, Hyperlipdemia Gastrointestinal: Yes: GERD Psych: Yes: Other (schizoaffective ds) Endocrine: Yes: Diabetes Mellitus - Alcohol/Substance Use Hx Alcohol Use: No - Smoking History Smoking history: Current every day smoker Have you smoked in the past 12 months: Yes Aproximately how many cigarettes per day: 20 Home Medications - Allergies Allergies/Adverse Reactions: Allergies Allergy/AdvReac Type Severity Reaction Status Date / Time No Known Allergies Allergy Verified 04/22/19 11:26 - Home Medications Home Medications: Ambulatory Orders Albuterol Sulfate Inhaler - [Ventolin HFA Inhaler -] 2 inh IH Q6H #1 inh traZODone HCL [Desyrel -] 500 mg PO HS 11/27/16 Benztropine Mesylate 0.5 mg PO BID 02/16/18 Buspirone HCl [Buspar -] 10 mg PO TID 02/16/18 Cyclobenzaprine HCl 10 mg PO BID 02/16/18 Diltiazem Cd [Cardizem Cd -] 180 mg PO DAILY 02/16/18 Duloxetine HCl [Cymbalta] 60 mg PO DAILY 02/16/18 Gabapentin 300 mg PO BID 02/16/18 Omeprazole 40 mg PO DAILY 02/16/18 Sennosides/Docusate Sodium [Senna Laxative Tablet] 1 each PO HS 02/16/18 Sitagliptin Phosphate [Januvia] 100 mg PO DAILY 02/16/18 Ziprasidone HCl [Geodon] 25 mg PO DAILY 02/16/18 metFORMIN HCL [Metformin ER Osmotic] 500 mg PO DAILY 02/16/18 Cholecalciferol (Vitamin D3) [Vitamin D -] 800 unit PO DAILY 09/10/18 Fluticasone/Umeclidin/Vilanter [Trelegy Ellipta 100-62.5-25] 1 each IH DAILY Polyethylene Glycol 3350 [Miralax 119 gm Btl -] 17 gm PO DAILY #1 bottle Review of Systems - Review of Systems Constitutional: denies: Fever Eyes: denies: Blurred Vision HENT: denies: Difficult Swallowing Neck: reports: Decreased ROM, Pain on Movement Cardiovascular: reports: No Symptoms Respiratory: reports: No Symptoms Gastrointestinal: reports: No Symptoms Genitourinary: reports: No Symptoms Physical Exam Vital Sings: Vital Signs Temperature 98.4 F 04/23/19 06:00 Pulse Rate 91 H 04/23/19 06:00 Respiratory Rate 20 04/23/19 06:00 Blood Pressure 139/81 04/23/19 06:00 O2 Sat by Pulse Oximetry (%) 95 04/22/19 21:30 Constitutional: Yes: Anxious Eyes: Yes: EOM Intact HENT: Yes: Normocephalic Neck: Yes: Other (cervical collar) Cardiovascular: Yes: Regular Rate and Rhythm Respiratory: Yes: Other (distant but clear) Gastrointestinal: Yes: Normal Bowel Sounds Extremities: Yes: WNL Edema: No Integumentary: Yes: WNL Neurological: Yes: Alert Labs: CBC, BMP 04/23/19 07:25 04/23/19 07:25 ABG Results ABG pH 7.27 (7.35-7.45) L 04/23/19 10:00 ABG pCO2 at Pt Temp 66.1 mmHg (35-45) H 04/23/19 10:00 ABG pO2 at Pt Temp 79.7 mmHg (80-100) L 04/23/19 10:00 ABG HCO3 29.2 mmol/L (22-27) H 04/23/19 10:00 ABG O2 Sat (Measured) 94.5 % (95-98) L 04/23/19 10:00 ABG O2 Content 18.3 % vol 04/23/19 10:00 ABG Base Excess 0.9 meq/l (-2-2) 04/23/19 10:00 Imaging - Results Chest X-ray: Pending Problem List - Problems (1) COPD (chronic obstructive pulmonary disease) Code(s): J44.9 - CHRONIC OBSTRUCTIVE PULMONARY DISEASE, UNSPECIFIED (2) Cervical disc disease Code(s): M50.90 - CERVICAL DISC DISORDER, UNSP, UNSPECIFIED CERVICAL REGION (3) Discogenic pain Code(s): M54.9 - DORSALGIA, UNSPECIFIED (4) HTN (hypertension) Code(s): I10 - ESSENTIAL (PRIMARY) HYPERTENSION (5) Schizoaffective disorder Code(s): F25.9 - SCHIZOAFFECTIVE DISORDER, UNSPECIFIED Assessment/Plan COPD SECONDARY TO CIGARETTE SMOKING OVER MANY YEARS SPO2 90% ON R/A AT REST WOULD ANTICIPATE DESATURATION UPON EXERTION SUGGEST SMOKING CESSATION CXR PORTABLE CONTINUE O2 TO KEEP SPO2 GREATER THAN 90% CHELSY TID OUTPATIENT FOLLOW UP GOOD CANDIDATE FOR PULMONARY REHAB WILL FOLLOW Griffin CHUN MD
[2019-04-23] MEDS: ACETAMINOPHEN 1000 MG/100 ML VIAL (NON FORMULARY) IVPB SCH ×2 (13:11→18:32)
--- NOTE | 2019-04-23 14:20 | EKG ---
Test Reason : Blood Pressure : / mmHG Vent. Rate : 085 BPM Atrial Rate : 085 BPM P-R Int : 148 ms QRS Dur : 084 ms QT Int : 372 ms P-R-T Axes : 050 -04 027 degrees QTc Int : 442 ms NORMAL SINUS RHYTHM MINIMAL VOLTAGE CRITERIA FOR LVH, MAY BE NORMAL VARIANT WHEN COMPARED WITH ECG OF 17-OCT-2018 09:52, NO SIGNIFICANT CHANGE WAS FOUND Confirmed by TIMOTHY KAUFFMAN, DELFIN ([id number]) on 04/23/2019 2:20:02 PM Referred By: KRUPA VERA Confirmed By:DELFIN AGUIRRE MD
--- NOTE | 2019-04-23 14:32 | PN ---
Progress Note (short form) - Note Progress Note: POD#1 Pt seen earlier this am, she was initially sleepy this am after receiving dilaudid IV. Currently she is awake and has no complaints except that she doesn' t want to wear the cervcial collar Vital Signs Period Temp Pulse Resp BP Sys/Mcdaniel Pulse Ox Last 24 Hr 97.7 F-98.4 F 77-96 17-22 117-154/55-86 9-96 Alexis: 600ml clear/yellow RACHAEL: 75ml bloody GEN: Alert and follows commands CV: RRR Lungs: CTA b/l Neck: incision c/d/i. Small hematoma on the lateral/superior aspect approx 2 cm long and 1 cm wide. The neck remains soft, with minimal ecchymosis. CBC, BMP 04/23/19 07:25 04/23/19 07:25 A/P: 59 yo female s/p C4 corpectomy with anterior plating and PEEK cage placment Diet as tolerated OOB/ambulate Pain managment with IV tylenol/oxycodone. Stool softners to prevent constipation Remove alexis cath for TOV D/w Dr. Corona-and pulled the drain. 1 hour after pulling the drain pt oob to void and had coughing episode. She had bleeding from her neck which appeared to be venous and stopped with pressure. The incision became a little more firm but her neck remained soft. A new pressure dressing was applied. Instruction were to have HOB elevated, bed rest. Discontinue Heparin SQ. Added robitussion and will give treaments to minimize her coughing. The nurse was made aware of the plan. The patient was also made aware to let the nurse know if she has increase in SOB/difficulty swallowing or increase in pain/pressure.
[2019-04-23] MEDS: oxyCODONE HCL 5 MG TABLET PO PRN ×2 (14:46→20:13)
[2019-04-23 15:02] LABS: ANISOCYTOSIS 2+; MACROCYTOSIS 0; OVALOCYTE 1+; PLATELET ESTIMATE NORMAL
[2019-04-23] MEDS ORDERED: guaiFENesin 200 MG/10 ML 10 ML UNIT-DOSE CUPS PO PRN (17:11)
[2019-04-23] MEDS: SENNOSIDES/DOCUSATE COMBO (SENNA PLUS) TABLET (UD) PO SCH (21:41)
[2019-04-24] MEDS: ACETAMINOPHEN 1000 MG/100 ML VIAL (NON FORMULARY) IVPB SCH ×2 (00:20→06:29)
[2019-04-24] MEDS ORDERED: PT OWN MED DRAWER 7, Y5N ONE ×4 (06:06→21:31)
[2019-04-24] MEDS: busPIRone HCL 10 MG TABLET (FP) PO SCH ×3 (06:24→21:34)
[2019-04-24] MEDS: DOCUSATE SODIUM 100 MG CAPSULE (FP) PO SCH ×3 (06:24→21:33)
[2019-04-24 09:11] LABS: BASO % 0.6 % (0-2.0); EOS % 1.5 % (0-4.5); HEMATOCRIT 37.3 % (32.4-45.2); HEMOGLOBIN 12.6 GM/dL (10.7-15.3); LYMPH % 18.8 % (8-40); MCHC 33.6 g/dl (32.0-36.0); MEAN CELL VOLUME 83.3 fl (80-96); MEAN PLT VOLUME 8.3 fl (7.5-11.1); MONO % 7.2 % (3.8-10.2); NEUT % 71.9 % (42.8-82.8); PLATELET COUNT 199 K/MM3 (134-434); RBC 4.48 M/mm3 (3.60-5.2); WHITE BLOOD COUNT 10.6 K/mm3 (4.0-10.0)
[2019-04-24] MEDS: BENZTROPINE MESYLATE 0.5 MG TABLET (FP) PO SCH ×2 (09:19→21:34)
[2019-04-24] MEDS: CYCLOBENZAPRINE HCL 10 MG TABLET (FP) PO SCH ×2 (09:20→21:33)
[2019-04-24] MEDS: FOLIC ACID 1 MG TABLET (FP) PO SCH (09:20)
[2019-04-24] MEDS: DULoxetine HCL 30 MG CAPSULE.DR PO SCH (09:20)
[2019-04-24] MEDS: POLYETHYLENE GLYCOL 3350 119 GM BTL PO SCH (09:21)
[2019-04-24] MEDS: GABAPENTIN 100 MG CAPSULE (FP) PO SCH ×2 (09:21→21:33)
[2019-04-24] MEDS: PANTOPRAZOLE 40 MG TABLET (FP) PO SCH (09:22)
[2019-04-24] MEDS: CHOLECALCIFEROL (VIT D3) 400 UNIT (10 MCG) TABLET PO SCH (09:22)
--- NOTE | 2019-04-24 09:33 | PN ---
Progress Note, Physician Chief Complaint: AWAKE ALERT NO FEVERS EVENTS AND NOTES REVIEWED POD #2 CERVICAL SPINE C4 - Current Medication List Current Medications: Active Medications Albuterol Sulfate (Ventolin Hfa Inhaler -) 2 puff IH Q6H PRN PRN Reason: SHORTNESS OF BREATH Benztropine Mesylate (Cogentin -) 0.5 mg PO BID [facility] Last Admin: 04/23/19 21:40 Dose: 0.5 mg Buspirone HCl (Buspar -) 10 mg PO TID [facility] Last Admin: 04/24/19 06:24 Dose: 10 mg Cholecalciferol (Vitamin D3 -) 800 unit PO DAILY [facility] Last Admin: 04/23/19 10:52 Dose: 800 unit Cyclobenzaprine HCl (Flexeril -) 10 mg PO BID [facility] Last Admin: 04/23/19 21:41 Dose: 10 mg Diltiazem HCl (Cardizem Cd -) 180 mg PO DAILY [facility] Last Admin: 04/23/19 10:42 Dose: 180 mg Diphenhydramine HCl (Benadryl -) 25 mg PO Q6H PRN PRN Reason: FOR ITCHING Docusate Sodium (Colace -) 100 mg PO TID [facility] Last Admin: 04/24/19 06:24 Dose: 100 mg Duloxetine HCl (Cymbalta -) 60 mg PO DAILY [facility] Last Admin: 04/23/19 10:43 Dose: 60 mg Folic Acid (Folic Acid -) 1 mg PO DAILY [facility] Last Admin: 04/23/19 10:42 Dose: 1 mg Gabapentin (Neurontin -) 300 mg PO BID [facility] Last Admin: 04/23/19 21:40 Dose: 300 mg Guaifenesin (Robitussin -) 10 ml PO Q6H PRN PRN Reason: COUGH Lactated Ringer's (Lactated Ringers Solution) 1,000 ml in 1,000 mls @ 125 mls/ hr IV ASDIR [facility] Last Admin: 04/23/19 01:44 Dose: 125 mls/hr Non-Formulary Medication (Fluticasone/Umeclidin/Vilanter [Trelegy Ellipta 100- 62.5-25]) 1 each IH DAILY [facility] Ondansetron HCl (Zofran Injection) 4 mg IVPUSH Q6H PRN PRN Reason: NAUSEA AND/OR VOMITING Oxycodone HCl (Roxicodone -) 5 mg PO Q6H PRN PRN Reason: PAIN LEVEL 1-5 Last Admin: 04/23/19 14:46 Dose: 5 mg Oxycodone HCl (Roxicodone -) 10 mg PO Q6H PRN PRN Reason: PAIN LEVEL 6-10 Last Admin: 04/23/19 20:13 Dose: 10 mg Pantoprazole Sodium (Protonix -) 40 mg PO DAILY [facility] Last Admin: 04/23/19 10:43 Dose: 40 mg Polyethylene Glycol (Miralax (For Daily Use) -) 17 gm PO DAILY [facility] Last Admin: 04/23/19 10:43 Dose: 17 gm Senna/Docusate Sodium (Pericolace -) 1 tablet PO HS [facility] Last Admin: 04/23/19 21:41 Dose: 1 tablet Ziprasidone (Geodon -) 25 mg PO DAILY [facility] - Objective Vital Signs: Vital Signs Temperature 98.4 F 04/23/19 19:50 Pulse Rate 95 H 04/23/19 19:50 Respiratory Rate 20 04/23/19 21:00 Blood Pressure 148/77 04/23/19 19:50 O2 Sat by Pulse Oximetry (%) 95 04/23/19 21:00 Constitutional: Yes: Mild Distress HENT: Yes: Other Neck: Yes: Other (EDEMA, ECHYMOSIS TO SURGICAL SITE ANTERIOR NECK WITH DRESSING APPLIED. NO DISCHARGE OR DRAINAGE FROM SITE) Cardiovascular: Yes: Regular Rate and Rhythm Respiratory: Yes: CTA Bilaterally Gastrointestinal: Yes: Soft Genitourinary: Yes: WNL Musculoskeletal: Yes: Other Extremities: Yes: WNL Edema: No Integumentary: Yes: Bruising Wound/Incision: Yes: Dressing Dry and Intact Neurological: Yes: Pre-Existing Deficit Psychiatric: Yes: Other Labs: CBC, BMP 04/24/19 08:10 INR, PTT INR 0.88 (0.83-1.09) 04/22/19 09:30 Problem List - Problems (1) H/O tobacco use, presenting hazards to health Code(s): Z87.891 - PERSONAL HISTORY OF NICOTINE DEPENDENCE (2) Cervical spine disease Code(s): M48.9 - SPONDYLOPATHY, UNSPECIFIED (3) COPD (chronic obstructive pulmonary disease) Code(s): J44.9 - CHRONIC OBSTRUCTIVE PULMONARY DISEASE, UNSPECIFIED (4) Cervical disc disease Code(s): M50.90 - CERVICAL DISC DISORDER, UNSP, UNSPECIFIED CERVICAL REGION (5) Diabetes Code(s): E11.9 - TYPE 2 DIABETES MELLITUS WITHOUT COMPLICATIONS (6) Anemia Code(s): D64.9 - ANEMIA, UNSPECIFIED (7) HTN (hypertension) Code(s): I10 - ESSENTIAL (PRIMARY) HYPERTENSION (8) Schizoaffective disorder Code(s): F25.9 - SCHIZOAFFECTIVE DISORDER, UNSPECIFIED Assessment/Plan POD #2 CERVICAL SPINE C4 MAKSIM. SX OOB TO CHAIR STOP AC/DVT PROPHYLAXIS DUE TO NECK SURGICAL SITE HEMATOMA. LUNGS ARE CLEAR TODAY CONTINUE DUONEB PRN DC PLANNING D/W PATIENT PAIN CONTROL
[2019-04-24 09:40] LABS: BILIRUBIN,TOTAL 0.4 mg/dL (0.2-1); BLOOD UREA NITROGEN 14.9 mg/dL (7-18); CALCIUM 9.2 mg/dL (8.5-10.1); CREATININE 0.9 mg/dL (0.55-1.3); POTASSIUM 4.5 mmol/L (3.5-5.1); TOT PROT 6.3 g/dl (6.4-8.2)
--- NOTE | 2019-04-24 11:30 | PN ---
Progress Note (short form) - Note Progress Note: Feels discomfort at the surgical site. Swelling and hematoma noted. No CP or SOB. Intake & Output 04/21/19 04/22/19 04/23/19 04/24/19 23:59 23:59 23:59 23:59 Intake Total 1750 2515 1375 Output Total 955 1415 Balance 795 1100 1375 Weight 198 lb Last Vital Signs Temp Pulse Resp BP Pulse Ox 98.2 F 67 20 149/73 95 04/24/19 08:05 04/24/19 08:05 04/24/19 08:05 04/24/19 08:05 04/23/19 21:00 Active Medications Albuterol Sulfate (Ventolin Hfa Inhaler -) 2 puff IH Q6H PRN PRN Reason: SHORTNESS OF BREATH Benztropine Mesylate (Cogentin -) 0.5 mg PO BID [facility] Last Admin: 04/24/19 09:19 Dose: 0.5 mg Buspirone HCl (Buspar -) 10 mg PO TID [facility] Last Admin: 04/24/19 06:24 Dose: 10 mg Cholecalciferol (Vitamin D3 -) 800 unit PO DAILY [facility] Last Admin: 04/24/19 09:22 Dose: 800 unit Cyclobenzaprine HCl (Flexeril -) 10 mg PO BID [facility] Last Admin: 04/24/19 09:20 Dose: 10 mg Diltiazem HCl (Cardizem Cd -) 180 mg PO DAILY [facility] Last Admin: 04/24/19 09:19 Dose: 180 mg Diphenhydramine HCl (Benadryl -) 25 mg PO Q6H PRN PRN Reason: FOR ITCHING Docusate Sodium (Colace -) 100 mg PO TID [facility] Last Admin: 04/24/19 06:24 Dose: 100 mg Duloxetine HCl (Cymbalta -) 60 mg PO DAILY [facility] Last Admin: 04/24/19 09:20 Dose: 60 mg Folic Acid (Folic Acid -) 1 mg PO DAILY [facility] Last Admin: 04/24/19 09:20 Dose: 1 mg Gabapentin (Neurontin -) 300 mg PO BID [facility] Last Admin: 04/24/19 09:21 Dose: 300 mg Guaifenesin (Robitussin -) 10 ml PO Q6H PRN PRN Reason: COUGH Lactated Ringer's (Lactated Ringers Solution) 1,000 ml in 1,000 mls @ 125 mls/ hr IV ASDIR [facility] Last Admin: 04/23/19 01:44 Dose: 125 mls/hr Non-Formulary Medication (Fluticasone/Umeclidin/Vilanter [Trelegy Ellipta 100- 62.5-25]) 1 each IH DAILY [facility] Ondansetron HCl (Zofran Injection) 4 mg IVPUSH Q6H PRN PRN Reason: NAUSEA AND/OR VOMITING Oxycodone HCl (Roxicodone -) 5 mg PO Q6H PRN PRN Reason: PAIN LEVEL 1-5 Last Admin: 04/23/19 14:46 Dose: 5 mg Oxycodone HCl (Roxicodone -) 10 mg PO Q6H PRN PRN Reason: PAIN LEVEL 6-10 Last Admin: 04/23/19 20:13 Dose: 10 mg Pantoprazole Sodium (Protonix -) 40 mg PO DAILY [facility] Last Admin: 04/24/19 09:22 Dose: 40 mg Polyethylene Glycol (Miralax (For Daily Use) -) 17 gm PO DAILY [facility] Last Admin: 04/24/19 09:21 Dose: 17 gm Senna/Docusate Sodium (Pericolace -) 1 tablet PO HS [facility] Last Admin: 04/23/19 21:41 Dose: 1 tablet Ziprasidone (Geodon -) 25 mg PO DAILY [facility] Constitutional: Yes: Awake and alert Eyes: Yes: EOM Intact HENT: Yes: Normocephalic Neck: Yes: Large hematoma and swelling, no stridor Cardiovascular: Yes: Regular Rate and Rhythm Respiratory: Yes: Clear Gastrointestinal: Yes: Normal Bowel Sounds Extremities: Yes: WNL Edema: No Integumentary: Yes: WNL Neurological: Yes: Alert Labs: Laboratory Results - last 24 hr 04/23/19 04/24/19 04/24/19 07:25 08:10 08:10 WBC 10.6 H RBC 4.48 Hgb 12.6 Hct 37.3 MCV 83.3 MCH 28.0 MCHC 33.6 RDW 14.0 Plt Count 199 MPV 8.3 Absolute Neuts (auto) 7.6 Neutrophils % 71.9 Neutrophils % (Manual) 87.1 H Band Neutrophils % 6.9 Lymphocytes % 18.8 D Lymphocytes % (Manual) 1.0 L Monocytes % 7.2 Monocytes % (Manual) 3 L Eosinophils % 1.5 Eosinophils % (Manual) 0.0 Basophils % 0.6 Basophils % (Manual) 0.0 Myelocytes % (Man) 0 Promyelocytes % (Man) 0 Blast Cells % (Manual) 0 Nucleated RBC % 0 0 Metamyelocytes 0 Hypochromia 0 Platelet Estimate Normal Platelet Comment Present Polychromasia 0 Poikilocytosis 1+ Anisocytosis 2+ Microcytosis 1+ Macrocytosis 0 Ovalocytes 1+ Stomatocytes 1+ Sodium 139 Potassium 4.5 Chloride 103 Carbon Dioxide 32 Anion Gap 4 L BUN 14.9 Creatinine 0.9 Est GFR (CKD-EPI)AfAm 79.98 Est GFR (CKD-EPI)NonAf 69.01 Random Glucose 124 H Calcium 9.2 Total Bilirubin 0.4 AST 12 L ALT 23 Alkaline Phosphatase 146 H Total Protein 6.3 L Albumin 3.0 L Problem List - Problems (1) COPD (chronic obstructive pulmonary disease) Code(s): J44.9 - CHRONIC OBSTRUCTIVE PULMONARY DISEASE, UNSPECIFIED (2) Cervical disc disease Code(s): M50.90 - CERVICAL DISC DISORDER, UNSP, UNSPECIFIED CERVICAL REGION (3) Discogenic pain Code(s): M54.9 - DORSALGIA, UNSPECIFIED (4) HTN (hypertension) Code(s): I10 - ESSENTIAL (PRIMARY) HYPERTENSION (5) Schizoaffective disorder Code(s): F25.9 - SCHIZOAFFECTIVE DISORDER, UNSPECIFIED Assessment/Plan COPD SECONDARY TO CIGARETTE SMOKING OVER MANY YEARS SMOKING CESSATION CONTINUE O2 TO KEEP SPO2 GREATER THAN 90% DUONEShoaib TID OUTPATIENT FOLLOW UP GOOD CANDIDATE FOR PULMONARY REHAB SURGICAL FOLLOW UP OF HEMATOMA DR GTZ
[2019-04-24] MEDS: oxyCODONE HCL 5 MG TABLET PO PRN (12:21)
[2019-04-24] MEDS: LACTATED RINGERS SOLUTION 1,000 ML/1,000 ML INFUS.BAG IV SCH (19:44)
[2019-04-24] MEDS: SENNOSIDES/DOCUSATE COMBO (SENNA PLUS) TABLET (UD) PO SCH (21:33)
[2019-04-25] MEDS ORDERED: PT OWN MED DRAWER 7, Y5N ONE ×2 (05:46→09:50)
[2019-04-25] MEDS: busPIRone HCL 10 MG TABLET (FP) PO SCH ×3 (05:50→22:19)
[2019-04-25] MEDS: DOCUSATE SODIUM 100 MG CAPSULE (FP) PO SCH ×3 (05:50→21:20)
[2019-04-25] MEDS: oxyCODONE HCL 5 MG TABLET PO PRN ×2 (05:53→18:30)
[2019-04-25] MEDS: LACTATED RINGERS SOLUTION 1,000 ML/1,000 ML INFUS.BAG IV SCH ×2 (07:42→22:21)
[2019-04-25] MEDS: CYCLOBENZAPRINE HCL 10 MG TABLET (FP) PO SCH ×2 (09:46→21:20)
[2019-04-25] MEDS: CHOLECALCIFEROL (VIT D3) 400 UNIT (10 MCG) TABLET PO SCH (09:47)
[2019-04-25] MEDS: GABAPENTIN 100 MG CAPSULE (FP) PO SCH ×2 (09:47→21:20)
[2019-04-25] MEDS: FOLIC ACID 1 MG TABLET (FP) PO SCH (09:47)
[2019-04-25] MEDS: PANTOPRAZOLE 40 MG TABLET (FP) PO SCH (09:47)
[2019-04-25] MEDS: DULoxetine HCL 30 MG CAPSULE.DR PO SCH (09:48)
[2019-04-25] MEDS: BENZTROPINE MESYLATE 0.5 MG TABLET (FP) PO SCH ×2 (09:54→22:19)
[2019-04-25] MEDS: BUDESONIDE/FORMETEROL FUMARATE 160/4.5 mcg INHALER IH SCH ×2 (09:54→22:21)
[2019-04-25] MEDS: POLYETHYLENE GLYCOL 3350 119 GM BTL PO SCH (09:56)
[2019-04-25] MEDS ORDERED: TIOTROPIUM BROMIDE 2.5 MCG (SPIRIVA) RESPIMAT INHALER IH SCH (10:00)
--- NOTE | 2019-04-25 10:56 | PN ---
Progress Note (short form) - Note Progress Note: Fully dressed and ambulating in the room. Breathing feels better. Large dressing in place right neck. No CP or SOB. Intake & Output 04/22/19 04/23/19 04/24/19 04/25/19 23:59 23:59 23:59 23:59 Intake Total 1750 2515 2246 Output Total 955 1415 Balance 795 1100 2246 Weight 198 lb Last Vital Signs Temp Pulse Resp BP Pulse Ox 98.8 F 88 18 144/78 95 04/25/19 09:00 04/25/19 09:00 04/25/19 09:00 04/25/19 09:00 04/24/19 21:00 Active Medications Albuterol Sulfate (Ventolin Hfa Inhaler -) 2 puff IH Q6H PRN PRN Reason: SHORTNESS OF BREATH Benztropine Mesylate (Cogentin -) 0.5 mg PO BID [facility] BEDS AT [facility] Last Admin: 04/25/19 09:54 Dose: 0.5 mg Budesonide/Formoterol Fumarate (Symbicort 160/4.5mcg -) 1 puff IH BID [facility]CLUDE 234 BEDS AT [facility] Last Admin: 04/25/19 09:54 Dose: 1 puff Buspirone HCl (Buspar -) 10 mg PO TID [facility]CLUDE 234 BEDS AT [facility] Last Admin: 04/25/19 05:50 Dose: 10 mg Cholecalciferol (Vitamin D3 -) 800 unit PO DAILY [facility]CLUDE 234 BEDS AT [facility] Last Admin: 04/25/19 09:47 Dose: 800 unit Cyclobenzaprine HCl (Flexeril -) 10 mg PO BID [facility] 234 BEDS AT [facility] Last Admin: 04/25/19 09:46 Dose: 10 mg Diltiazem HCl (Cardizem Cd -) 180 mg PO DAILY [facility]CLUDE 234 BEDS AT [facility] Last Admin: 04/25/19 09:47 Dose: 180 mg Diphenhydramine HCl (Benadryl -) 25 mg PO Q6H PRN PRN Reason: FOR ITCHING Docusate Sodium (Colace -) 100 mg PO TID [facility]CLUDE 234 BEDS AT [facility] Last Admin: 04/25/19 05:50 Dose: 100 mg Duloxetine HCl (Cymbalta -) 60 mg PO DAILY [facility]CLUDE 234 BEDS AT [facility] Last Admin: 04/25/19 09:48 Dose: 60 mg Folic Acid (Folic Acid -) 1 mg PO DAILY [facility]CLUDE 234 BEDS AT [facility] Last Admin: 04/25/19 09:47 Dose: 1 mg Gabapentin (Neurontin -) 300 mg PO BID [facility]CLUDE 234 BEDS AT [facility] Last Admin: 04/25/19 09:47 Dose: 300 mg Guaifenesin (Robitussin -) 10 ml PO Q6H PRN PRN Reason: COUGH Lactated Ringer's (Lactated Ringers Solution) 1,000 ml in 1,000 mls @ 125 mls/ hr IV ASDIR [facility]S INCLUDE 234 BEDS AT [facility] Last Admin: 04/25/19 07:42 Dose: Not Given Ondansetron HCl (Zofran Injection) 4 mg IVPUSH Q6H PRN PRN Reason: NAUSEA AND/OR VOMITING Oxycodone HCl (Roxicodone -) 5 mg PO Q6H PRN PRN Reason: PAIN LEVEL 1-5 Last Admin: 04/23/19 14:46 Dose: 5 mg Oxycodone HCl (Roxicodone -) 10 mg PO Q6H PRN PRN Reason: PAIN LEVEL 6-10 Last Admin: 04/25/19 05:53 Dose: 10 mg Pantoprazole Sodium (Protonix -) 40 mg PO DAILY [facility] 234 BEDS [facility] Last Admin: 04/25/19 09:47 Dose: 40 mg Polyethylene Glycol (Miralax (For Daily Use) -) 17 gm PO DAILY [facility] 234 BEDS AT [facility] Last Admin: 04/25/19 09:56 Dose: 17 gm Senna/Docusate Sodium (Pericolace -) 1 tablet PO HS [facility] 234 BEDS AT [facility] Last Admin: 04/24/19 21:33 Dose: 1 tablet Tiotropium [place] (Spiriva Respimat) 2 puff IH DAILY [facility]CLUDE 234 BEDS AT [facility] Last Admin: 04/25/19 09:54 Dose: 2 puff Ziprasidone (Geodon -) 25 mg PO DAILY [facility]CLUDE 234 BEDS AT [facility] Constitutional: Yes: Awake and alert Eyes: Yes: EOM Intact HENT: Yes: Normocephalic Neck: Yes: Large hematoma and swelling, no stridor Cardiovascular: Yes: Regular Rate and Rhythm Respiratory: Yes: Clear Gastrointestinal: Yes: Normal Bowel Sounds Extremities: Yes: WNL Edema: No Integumentary: Yes: WNL Neurological: Yes: Alert Labs: Problem List - Problems (1) COPD (chronic obstructive pulmonary disease) Code(s): J44.9 - CHRONIC OBSTRUCTIVE PULMONARY DISEASE, UNSPECIFIED (2) Cervical disc disease Code(s): M50.90 - CERVICAL DISC DISORDER, UNSP, UNSPECIFIED CERVICAL REGION (3) Discogenic pain Code(s): M54.9 - DORSALGIA, UNSPECIFIED (4) HTN (hypertension) Code(s): I10 - ESSENTIAL (PRIMARY) HYPERTENSION (5) Schizoaffective disorder Code(s): F25.9 - SCHIZOAFFECTIVE DISORDER, UNSPECIFIED Assessment/Plan COPD SECONDARY TO CIGARETTE SMOKING OVER MANY YEARS SMOKING CESSATION CONTINUE O2 TO KEEP SPO2 GREATER THAN 90% DUONEB TID OUTPATIENT FOLLOW UP GOOD CANDIDATE FOR PULMONARY REHAB SURGICAL FOLLOW UP OF HEMATOMA DR GTZ
--- NOTE | 2019-04-25 14:53 | PN ---
Progress Note, Physician Chief Complaint: AWAKE ALERT NECK SWELLING IS WORSE - Current Medication List Current Medications: Active Medications Albuterol Sulfate (Ventolin Hfa Inhaler -) 2 puff IH Q6H PRN PRN Reason: SHORTNESS OF BREATH Benztropine Mesylate (Cogentin -) 0.5 mg PO BID [facility] Last Admin: 04/25/19 09:54 Dose: 0.5 mg Budesonide/Formoterol Fumarate (Symbicort 160/4.5mcg -) 1 puff IH BID [facility] Last Admin: 04/25/19 09:54 Dose: 1 puff Buspirone HCl (Buspar -) 10 mg PO TID [facility] Last Admin: 04/25/19 13:16 Dose: 10 mg Cholecalciferol (Vitamin D3 -) 800 unit PO DAILY [facility] Last Admin: 04/25/19 09:47 Dose: 800 unit Cyclobenzaprine HCl (Flexeril -) 10 mg PO BID [facility] Last Admin: 04/25/19 09:46 Dose: 10 mg Diltiazem HCl (Cardizem Cd -) 180 mg PO DAILY [facility] Last Admin: 04/25/19 09:47 Dose: 180 mg Diphenhydramine HCl (Benadryl -) 25 mg PO Q6H PRN PRN Reason: FOR ITCHING Docusate Sodium (Colace -) 100 mg PO TID [facility] Last Admin: 04/25/19 13:16 Dose: 100 mg Duloxetine HCl (Cymbalta -) 60 mg PO DAILY [facility] Last Admin: 04/25/19 09:48 Dose: 60 mg Folic Acid (Folic Acid -) 1 mg PO DAILY [facility] Last Admin: 04/25/19 09:47 Dose: 1 mg Gabapentin (Neurontin -) 300 mg PO BID [facility] Last Admin: 04/25/19 09:47 Dose: 300 mg Guaifenesin (Robitussin -) 10 ml PO Q6H PRN PRN Reason: COUGH Lactated Ringer's (Lactated Ringers Solution) 1,000 ml in 1,000 mls @ 125 mls/ hr IV ASDIR [facility] Last Admin: 04/25/19 07:42 Dose: Not Given Ondansetron HCl (Zofran Injection) 4 mg IVPUSH Q6H PRN PRN Reason: NAUSEA AND/OR VOMITING Oxycodone HCl (Roxicodone -) 5 mg PO Q6H PRN PRN Reason: PAIN LEVEL 1-5 Last Admin: 04/23/19 14:46 Dose: 5 mg Oxycodone HCl (Roxicodone -) 10 mg PO Q6H PRN PRN Reason: PAIN LEVEL 6-10 Last Admin: 04/25/19 05:53 Dose: 10 mg Pantoprazole Sodium (Protonix -) 40 mg PO DAILY [facility] Last Admin: 04/25/19 09:47 Dose: 40 mg Polyethylene Glycol (Miralax (For Daily Use) -) 17 gm PO DAILY [facility] Last Admin: 04/25/19 09:56 Dose: 17 gm Senna/Docusate Sodium (Pericolace -) 1 tablet PO HS [facility] Last Admin: 04/24/19 21:33 Dose: 1 tablet Tiotropium [place] (Spiriva Respimat) 2 puff IH DAILY [facility] Last Admin: 04/25/19 09:54 Dose: 2 puff Ziprasidone (Geodon -) 25 mg PO DAILY [facility] - Objective Vital Signs: Vital Signs Temperature 98.8 F 04/25/19 09:00 Pulse Rate 88 04/25/19 09:00 Respiratory Rate 18 04/25/19 09:00 Blood Pressure 144/78 04/25/19 09:00 O2 Sat by Pulse Oximetry (%) 95 04/24/19 21:00 Constitutional: Yes: Mild Distress HENT: Yes: Other ([place]EMA WITH TENDERNESS TO SOFT TISSUE OF NECK) Neck: Yes: Other (EDEMA) Cardiovascular: Yes: Regular Rate and Rhythm Respiratory: Yes: On Nasal O2, Other Genitourinary: Yes: WNL Musculoskeletal: Yes: Muscle Weakness Extremities: Yes: WNL Edema: Yes Labs: CBC, BMP 04/24/19 08:10 04/24/19 08:10 INR, PTT INR 0.88 (0.83-1.09) 04/22/19 09:30 Problem List - Problems (1) H/O tobacco use, presenting hazards to health Code(s): Z87.891 - PERSONAL HISTORY OF NICOTINE DEPENDENCE (2) Cervical spine disease Code(s): M48.9 - SPONDYLOPATHY, UNSPECIFIED (3) COPD (chronic obstructive pulmonary disease) Code(s): J44.9 - CHRONIC OBSTRUCTIVE PULMONARY DISEASE, UNSPECIFIED (4) Cervical disc disease Code(s): M50.90 - CERVICAL DISC DISORDER, UNSP, UNSPECIFIED CERVICAL REGION (5) Diabetes Code(s): E11.9 - TYPE 2 DIABETES MELLITUS WITHOUT COMPLICATIONS (6) Anemia Code(s): D64.9 - ANEMIA, UNSPECIFIED (7) HTN (hypertension) Code(s): I10 - ESSENTIAL (PRIMARY) HYPERTENSION (8) Schizoaffective disorder Code(s): F25.9 - SCHIZOAFFECTIVE DISORDER, UNSPECIFIED Assessment/Plan POD #3 CERVICAL SPINE C4 MAKSIM. SX WORSE TODAY CT SOFT TISSUE OF NECK ORDERED ENT CONSULT ICE PACKS TO AREA OOB TO CHAIR STOP AC/DVT PROPHYLAXIS DUE TO NECK SURGICAL SITE HEMATOMA. LUNGS ARE CLEAR TODAY CONTINUE DUONEB PRN PAIN CONTROL
[2019-04-25] MEDS: SENNOSIDES/DOCUSATE COMBO (SENNA PLUS) TABLET (UD) PO SCH (21:19)
[2019-04-25] MEDS ORDERED: CHLORHEXIDINE GLUCONATE 4% CLEANSER FOR DECOLONIZATION TP SCH (22:00)
[2019-04-26] MEDS: busPIRone HCL 10 MG TABLET (FP) PO SCH ×2 (06:01→21:03)
[2019-04-26] MEDS: DOCUSATE SODIUM 100 MG CAPSULE (FP) PO SCH ×2 (06:01→21:03)
[2019-04-26] MEDS ORDERED: GENTAMICIN SO4 80 MG/2 ML VIAL ONE (08:07)
[2019-04-26 08:42] LABS: HEMATOCRIT 37.5 % (32.4-45.2); HEMOGLOBIN 12.7 GM/dL (10.7-15.3); MCH 28.1 pg (25.7-33.7); MCHC 33.8 g/dl (32.0-36.0); MEAN PLT VOLUME 8.6 fl (7.5-11.1); PLATELET COUNT 196 K/MM3 (134-434); RBC 4.52 M/mm3 (3.60-5.2); RDW 13.5 % (11.6-15.6); WHITE BLOOD COUNT 10.5 K/mm3 (4.0-10.0)
[2019-04-26 09:00] LABS: BLOOD UREA NITROGEN 11.6 mg/dL (7-18); CREATININE 0.7 mg/dL (0.55-1.3); POTASSIUM 3.9 mmol/L (3.5-5.1)
[2019-04-26] MEDS ORDERED: LIDOCAINE HCL/PF 2% SDV 5ML VIAL ONE (09:00)
[2019-04-26] MEDS ORDERED: fentaNYL CITRATE 250 MCG/5 ML VIAL ONE ×2 (09:00→21:06)
[2019-04-26] MEDS ORDERED: PROPOFOL 20 ML ONE (09:00)
[2019-04-26] MEDS ORDERED: ROCURONIUM BROMIDE 50 MG/5 ML SYRINGE ONE ×2 (09:01→09:46)
[2019-04-26] MEDS ORDERED: MIDAZOLAM HCL 2 MG/2 ML SINGLE DOSE VIAL ONE ×2 (09:01→13:03)
[2019-04-26] MEDS ORDERED: SUCCINYLCHOLINE CHLORIDE 200 MG/10 ML SYRINGE ONE (09:01)
[2019-04-26] MEDS ORDERED: ceFAZolin SODIUM 1 GM VIAL IVPB ONE (09:25)
[2019-04-26] MEDS ORDERED: BACITRACIN 15 GM TUBE TOPICAL OINTMENT ONE (09:26)
[2019-04-26] MEDS ORDERED: LACTATED RINGERS SOLUTION 1,000 ML/1,000 ML INFUS.BAG IV SCH (10:05)
--- NOTE | 2019-04-26 10:13 | OP ---
Operative Note - Note: Operative Date: 04/26/19 Pre-Operative Diagnosis: post op hematoma Operation: wound expoloration and evacuation of hematoma Post-Operative Diagnosis: Same as Pre-op Surgeon: Yehuda Corona Cleaning Validation Consultant: Kameron Gay Anesthesiologist/J2EE DEVELOPER: Darrion Ortiz Anesthesia: General Estimated Blood Loss (mls): 10 Operative Report Dictated: Yes
[2019-04-26] MEDS ORDERED: PROMETHAZINE HCL 25 MG/1 ML VIAL IVPUSH PRN ×2 (10:32→16:34)
[2019-04-26] MEDS ORDERED: ONDANSETRON 4 MG/2 ML VIAL IVPUSH PRN ×3 (10:32→16:34)
[2019-04-26] MEDS ORDERED: morphine SULFATE 4 MG/ML VIAL IVPUSH PRN ×2 (10:34→16:34)
[2019-04-26] MEDS ORDERED: PROPOFOL 100 ML IVPB SCH (10:45)
[2019-04-26] MEDS ORDERED: PROPOFOL 1000 MG/100 ML VIAL IVPB ONE ×2 (11:00→13:15)
[2019-04-26] MEDS ORDERED: ZIPRASIDONE 20 MG CAPSULE PO SCH (11:22)
[2019-04-26 11:37] LABS: ARTERIAL BLD GAS O2 SATURATION 97.4 % (95-98); ARTERIAL BLOOD GAS BASE EXCESS 4.1 meq/l (-2-2); ARTERIAL BLOOD GAS PCO2 37.4 mmHg (35-45); ARTERIAL BLOOD GAS PO2 93.2 mmHg (80-100); ARTERIAL BLOOD GAS pH 7.48 (7.35-7.45)
[2019-04-26 11:46] LABS: ALLENS TEST POSITIVE
[2019-04-26] MEDS ORDERED: PHENYLEPHRINE HCL 10 MG/1 ML SINGLE DOSE VIAL ONE (12:13)
--- NOTE | 2019-04-26 12:19 | PN ---
Progress Note (short form) - Note Progress Note: Vascular Surgery CAlled to evaluate pt in pacu. Pt having bleeding from the neck. Pt was explored this am with neurosurgery. Hematoma was evacuated. No signs of any active bleeding. Now pt had coughing episode in pacu and started to bleed. Will take pt back to OR for evacuation. Pt is intubated, and cannot sign consent. As this is a emergency, will take pt back for evacuation of hematoma. Kameron Gay DO
--- NOTE | 2019-04-26 13:02 | OP ---
Operative Note - Note: Operative Date: 04/26/19 Pre-Operative Diagnosis: Bleeding in neck Operation: Evacuation of hematoma, liagation of bleeding blood vessel neck Findings: bleeding vein on muscle Post-Operative Diagnosis: Same as Pre-op Surgeon: Kameron Gay Anesthesia: General Estimated Blood Loss (mls): 75 Operative Report Dictated: Yes
[2019-04-26] MEDS ORDERED: LACTATED RINGERS SOLUTION 1,000 ML IV SCH (13:45)
[2019-04-26 14:34] LABS: BASO % 0.5 % (0-2.0); EOS % 0.2 % (0-4.5); HEMATOCRIT 38.6 % (32.4-45.2); LYMPH % 5.3 % (8-40); MCH 28.1 pg (25.7-33.7); MCHC 33.6 g/dl (32.0-36.0); MEAN CELL VOLUME 83.5 fl (80-96); MEAN PLT VOLUME 9.3 fl (7.5-11.1); MONO % 1.3 % (3.8-10.2); NEUT % 92.7 % (42.8-82.8); PLATELET COUNT 235 K/MM3 (134-434); RBC 4.62 M/mm3 (3.60-5.2); RDW 13.5 % (11.6-15.6); WHITE BLOOD COUNT 15.5 K/mm3 (4.0-10.0)
[2019-04-26] MEDS ORDERED: DEXAMETHASONE SOD PHOSPHATE 4 MG/1 ML VIAL ONE (15:10)
[2019-04-26] MEDS ORDERED: DEXAMETHASONE SOD PHOSPHATE 10 MG/1 ML VIAL IVPUSH ONE (15:15)
[2019-04-26] MEDS: FENTANYL INJECTION 500 MCG in DEXTROSE 5%-WATER - 90 ML IVPB SCH ×2 (15:15→22:16)
[2019-04-26] MEDS ORDERED: DEXAMETHASONE SOD PHOSPHATE 10 MG/1 ML VIAL ONE (15:17)
--- NOTE | 2019-04-26 15:20 | OP ---
DATE OF OPERATION: 04/26/2019 PREOPERATIVE DIAGNOSIS: Bleeding hematoma in neck. POSTOPERATIVE DIAGNOSIS: Bleeding hematoma in neck. PROCEDURE: Evacuation of hematoma, ligation of blood vessel in neck. SURGEON: Kameron Alonso DO ANESTHESIA: General. BLOOD LOSS: 75 mL. The patient is a 59-year-old female who recently had neck surgery and was brought to the operating room this morning for an evacuation of hematoma. At that time, the hematoma was evacuated and no overt bleeding blood vessel could be found at that time. The wound was well probed and the hematoma was evacuated and Surgicel was placed at that time. Thereafter, 2 hours later, patient had a coughing episode here in the recovery room and started bleeding from the neck once again. This time it became emergent to take her back right away to evacuate the hematoma. The patient was brought to the operating room, laid in the operating room table in supine manner. Patient was intubated from this morning and general anesthesia was administered. We then went ahead and prepped and draped the neck with Betadine in a sterile surgical manner. We then went ahead and used a number 15 blade and opened along the incision, and the incision was opened. Once the incision was opened, there was hematoma that was in the wound and that was evacuated. When we looked at the sternocleidomastoid muscle and turned it over, there was a bleeding vein there. The vein was then dissected using a right-angle clamp and the vein was clamped proximally and distally and then ligated and then tied off using 2-0 silk. Once completed, there was no more bleeding from the area. The wound was well irrigated. Surgicel was placed. A 3-0 Vicryl was used in the subcutaneous tissue, and muscle was approximated in interrupted manner, and the skin was closed with skin bradley. The area was wet and dried. A 4 x 4 and Tegaderms were placed. Patient tolerated this procedure with no complications. Patient transferred to PACU in stable condition. KAMERON ALONSO DO CAREER DEVELOPMENT ENGINEER/[id number]
[2019-04-26 15:25] LABS: PLATELET ESTIMATE ADEQUATE
--- NOTE | 2019-04-26 15:50 | PN ---
Progress Note, Physician Chief Complaint: patient seen and examined in pacu s/p excision of hematoma and ligation of bleeding vessel sedated intubated on vent AC mode TV 450 and PEEP 5 - iv fentanyl receiving PRBC - Current Medication List Current Medications: Active Medications Albuterol Sulfate (Ventolin Hfa Inhaler -) 2 puff IH Q6H PRN PRN Reason: SHORTNESS OF BREATH Benztropine Mesylate (Cogentin -) 0.5 mg PO BID [facility] Last Admin: 04/25/19 22:19 Dose: 0.5 mg Budesonide/Formoterol Fumarate (Symbicort 160/4.5mcg -) 1 puff IH BID [facility] Last Admin: 04/25/19 22:21 Dose: 1 puff Buspirone HCl (Buspar -) 10 mg PO TID [facility] Last Admin: 04/26/19 06:01 Dose: Not Given Chlorhexidine Gluconate (Hibiclens For Decolonization -) 1 applic TP [facility] Cholecalciferol (Vitamin D3 -) 800 unit PO DAILY [facility] Last Admin: 04/25/19 09:47 Dose: 800 unit Cyclobenzaprine HCl (Flexeril -) 10 mg PO BID [facility] Last Admin: 04/25/19 21:20 Dose: 10 mg Dexamethasone Sodium Phosphate (Decadron Injection -) 10 mg IVPB Q4H [facility] Stop: 04/27/19 11:16 Diltiazem HCl (Cardizem Cd -) 180 mg PO DAILY [facility] Last Admin: 04/25/19 09:47 Dose: 180 mg Diphenhydramine HCl (Benadryl -) 25 mg PO Q6H PRN PRN Reason: FOR ITCHING Docusate Sodium (Colace -) 100 mg PO TID [facility] Last Admin: 04/26/19 06:01 Dose: Not Given Duloxetine HCl (Cymbalta -) 60 mg PO DAILY [facility] Last Admin: 04/25/19 09:48 Dose: 60 mg Fentanyl (Sublimaze Injection -) 50 mcg IVPUSH [id number] PRN PRN Reason: PAIN-PACU ORDER X 4 DOSES ONLY Fentanyl (Sublimaze Injection -) 50 mcg IVPUSH [id number] PRN PRN Reason: PAIN-PACU ORDER X 4 DOSES ONLY Folic Acid (Folic Acid -) 1 mg PO DAILY [facility] Last Admin: 04/25/19 09:47 Dose: 1 mg Gabapentin (Neurontin -) 300 mg PO BID [facility] Last Admin: 04/25/19 21:20 Dose: 300 mg Guaifenesin (Robitussin -) 10 ml PO Q6H PRN PRN Reason: COUGH Lactated Ringer's (Lactated Ringers Solution) 1,000 ml in 1,000 mls @ 100 mls/ hr IV ASDIR ANH Cefazolin Sodium (Ancef 1 Gm Premixed Ivpb -) 1 gm in 50 mls @ 100 mls/hr IVPB Q8H-IV [facility] Stop: 04/27/19 02:29 Propofol (Diprivan -) 100 mls @ 2.694 mls/hr IVPB TITR [facility]; Protocol Lactated Ringer's (Lactated Ringers Solution) 1,000 mls @ 125 mls/hr IV ASDIR ANH Fentanyl 500 mcg/ Dextrose 100 mls @ 2 mls/hr IVPB TITR [facility]; Protocol Stop: 04/27/19 13:44 Morphine Sulfate (Morphine Sulfate) 4 mg IVPUSH Q3H PRN PRN Reason: PAIN LEVEL 1-5 Stop: 04/27/19 10:33 Mupirocin (Bactroban Ointment (For Decolonization) -) 1 applic NS BID [facility] Stop: 05/01/19 21:59 Ondansetron HCl (Zofran Injection) 4 mg IVPUSH Q6H PRN PRN Reason: NAUSEA AND/OR VOMITING Ondansetron HCl (Zofran Injection) 4 mg IVPUSH Q6H PRN PRN Reason: NAUSEA AND/OR VOMITING Oxycodone HCl (Roxicodone -) 5 mg PO Q6H PRN PRN Reason: PAIN LEVEL 1-5 Last Admin: 04/25/19 18:30 Dose: 5 mg Pantoprazole Sodium (Protonix -) 40 mg PO DAILY [facility] Last Admin: 04/25/19 09:47 Dose: 40 mg Polyethylene Glycol (Miralax (For Daily Use) -) 17 gm PO DAILY [facility] Last Admin: 04/25/19 09:56 Dose: 17 gm Promethazine HCl (Phenergan Injection -) 12.5 mg IVPUSH Q6H PRN PRN Reason: NAUSEA-FOR RESCUE AFTER 15 MIN Senna/Docusate Sodium (Pericolace -) 1 tablet PO HS [facility] Last Admin: 10/13/19 21:19 Dose: 1 tablet Tiotropium [place] (Spiriva Respimat) 2 puff IH DAILY [facility] Last Admin: 04/25/19 09:54 Dose: 2 puff Ziprasidone (Geodon -) 20 mg PO DAILY [facility] - Objective Vital Signs: Vital Signs Temperature 98.1 F 04/26/19 13:30 Pulse Rate 57 L 04/26/19 15:15 Respiratory Rate 15 04/26/19 15:15 Blood Pressure 123/65 04/26/19 15:15 O2 Sat by Pulse Oximetry (%) 100 04/26/19 15:15 Constitutional: Yes: Calm HENT: Yes: Other (intubated) Neck: Yes: Other (midline dressing) Cardiovascular: Yes: Regular Rate and Rhythm, S1, S2 Respiratory: Yes: Mechanically Ventilated Gastrointestinal: Yes: Normal Bowel Sounds, Soft Extremities: Yes: Other (SCD) Labs: CBC, BMP 04/26/19 15:15 04/26/19 07:45 INR, PTT INR 0.88 (0.83-1.09) 04/22/19 09:30 Problem List - Problems (1) Cervical disc disease Assessment/Plan: post op hematoma excision of hematoma and ligation of bleeding vessel icu monitiirng sedation for now iv fentanyl prbc now check h/h in AM venodynes Code(s): M50.90 - CERVICAL DISC DISORDER, UNSP, UNSPECIFIED CERVICAL REGION
--- NOTE | 2019-04-26 15:59 | SURG ---
Surgery Lead Business Analyst Note Lead Business Analyst: Suhas Thornton PA-C Date of Service: 04/26/19 Diagnosis: Bleeding in neck Procedure: Evacuation of hematoma, liagation of bleeding blood vessel neck I was present for the entirety of the operative procedure. For further detail, please refer to operative report. Visit type - Case Type Case Type: ED Admission - New patient This patient is new to me today: No
[2019-04-26] MEDS: DEXAMETHASONE SOD PHOSPHATE 10 MG/1 ML VIAL IVPB SCH ×2 (16:00→21:07)
[2019-04-26] MEDS: LACTATED RINGERS SOLUTION 1,000 ML/1,000 ML INFUS.BAG IV SCH (16:30)
--- NOTE | 2019-04-26 16:32 | CONSULT ---
Consultation: REQUESTING PROVIDER: CONSULT REQUEST: We have been asked to medically evaluate this patient for (s/p hematoma evacuation-neck). HISTORY OF PRESENT ILLNESS: Pt is a 58 y/o lady with a significant past medical history of CAD (Cath in 2014 shows nonobstructive disease), COPD, NIDDM, CKD GERD, HTN, HLD, Schizoaffective Disorder, and Major depression who is s/p wound exploration and evacuation of hematoma. Pt underwent a C4 corpectomy on 04/22/2019. Pt was found to develop a hematoma in the anterior neck. Pt was taken to the O.R where the hematoma was evacuated. Pt further underwent a ligation of a bleeding blood vessel within the neck. REVIEW OF SYSTEMS: unable to obtain as pt sedated and intubated PHYSICAL EXAMINATION Vital Signs - 24 hr 04/25/19 04/25/19 04/26/19 17:18 20:38 05:00 Temperature 98.5 F 98.4 F 98 F Pulse Rate 79 78 70 Respiratory 20 18 18 Rate Blood Pressure 116/92 136/69 146/83 O2 Sat by Pulse Oximetry (%) 04/26/19 04/26/19 04/26/19 09:00 10:25 10:30 Temperature 98.5 F Pulse Rate 76 73 Respiratory 25 H 14 14 Rate Blood Pressure 140/68 127/60 O2 Sat by Pulse 99 100 100 Oximetry (%) 04/26/19 04/26/19 04/26/19 10:45 11:00 11:15 Temperature Pulse Rate 71 68 70 Respiratory 15 14 14 Rate Blood Pressure 122/60 115/69 121/70 O2 Sat by Pulse 100 99 100 Oximetry (%) 04/26/19 04/26/19 04/26/19 11:30 11:45 11:54 Temperature Pulse Rate 72 77 Respiratory 14 14 16 Rate Blood Pressure 137/76 125/70 O2 Sat by Pulse 100 100 Oximetry (%) 04/26/19 04/26/19 04/26/19 11:55 11:57 12:13 Temperature Pulse Rate 95 H 66 94 H Respiratory 27 H 25 H Rate Blood Pressure 182/96 H 113/62 O2 Sat by Pulse 100 98 99 Oximetry (%) 04/26/19 04/26/19 04/26/19 12:19 13:15 13:30 Temperature 98.1 F 98.1 F Pulse Rate 70 69 64 Respiratory 25 H 16 15 Rate Blood Pressure 104/53 L 101/45 L 104/55 L O2 Sat by Pulse 99 100 100 Oximetry (%) 04/26/19 04/26/19 04/26/19 13:45 14:00 14:15 Temperature Pulse Rate 60 58 L 56 L Respiratory 15 15 16 Rate Blood Pressure 106/55 L 109/58 L 113/68 O2 Sat by Pulse 100 100 100 Oximetry (%) 04/26/19 04/26/19 04/26/19 14:30 14:45 15:00 Temperature Pulse Rate 56 L 56 L 84 Respiratory 17 17 20 Rate Blood Pressure 113/65 113/61 138/72 O2 Sat by Pulse 100 100 100 Oximetry (%) 04/26/19 04/26/19 04/26/19 15:15 15:30 15:45 Temperature Pulse Rate 57 L 55 L 61 Respiratory 15 17 14 Rate Blood Pressure 123/65 119/62 127/69 O2 Sat by Pulse 100 100 100 Oximetry (%) GENERAL: Intubated and sedated HEAD: Normal with no signs of trauma. EYES: S EARS, NOSE, THROAT: Intubated. NECK: Surgical bandage anterior neck. Edema +. LUNGS: Mechanical breath sounds. HEART: RRR S1S2 ABDOMEN: Obese NDNT LOWER EXTREMITIES: No CCE NEUROLOGICAL: Cranial nerves II-XII intact. Normal speech. Normal gait. PSYCHIATRIC: Cooperative. Good eye contact. Appropriate mood and affect. SKIN: Warm, dry, normal turgor, no rashes or lesions noted. Laboratory Results - last 24 hr 04/26/19 04/26/19 04/26/19 07:45 07:45 07:45 WBC 10.5 H RBC 4.52 Hgb 12.7 Hct 37.5 MCV 83.0 MCH 28.1 MCHC 33.8 RDW 13.5 Plt Count 196 MPV 8.6 Absolute Neuts (auto) Total Counted Neutrophils % Neutrophils % (Manual) Band Neutrophils % Lymphocytes % Lymphocytes % (Manual) Monocytes % Monocytes % (Manual) Eosinophils % Basophils % Nucleated RBC % Platelet Estimate Anticoagulation Therapy Puncture Site ABG pH ABG pCO2 at Pt Temp ABG pO2 at Pt Temp ABG HCO3 ABG O2 Sat (Measured) ABG O2 Content ABG Base Excess Christoph Test O2 Delivery Device Oxygen Flow Rate Vent Mode Vent Rate Mechanical Rate Pressure Support Vent Sodium 136 Potassium 3.9 Chloride 102 Carbon Dioxide 29 Anion Gap 5 L BUN 11.6 Creatinine 0.7 Est GFR (CKD-EPI)AfAm 108.38 Est GFR (CKD-EPI)NonAf 93.51 Random Glucose 136 H Calcium 9.0 Blood Type O POSITIVE Antibody Screen Negative Crossmatch See Detail 04/26/19 04/26/19 11:20 15:15 WBC 15.5 H RBC 4.62 Hgb 13.0 Hct 38.6 MCV 83.5 MCH 28.1 MCHC 33.6 RDW 13.5 Plt Count 235 MPV 9.3 Absolute Neuts (auto) 14.3 H Total Counted 100 Neutrophils % 92.7 H D Neutrophils % (Manual) 88.0 H Band Neutrophils % 2.0 Lymphocytes % 5.3 L D Lymphocytes % (Manual) 8.0 Monocytes % 1.3 L D Monocytes % (Manual) 2 L Eosinophils % 0.2 D Basophils % 0.5 Nucleated RBC % 0 Platelet Estimate Adequate Anticoagulation Therapy No Result Required. Puncture Site Right radial ABG pH 7.48 H ABG pCO2 at Pt Temp 37.4 ABG pO2 at Pt Temp 93.2 ABG HCO3 27.4 H ABG O2 Sat (Measured) 97.4 ABG O2 Content 16.0 ABG Base Excess 4.1 H Christoph Test Positive O2 Delivery Device No Result Required. Oxygen Flow Rate Yes Vent Mode No Result Required. Vent Rate No Result Required. Mechanical Rate No Result Required. Pressure Support Vent No Result Required. Sodium Potassium Chloride Carbon Dioxide Anion Gap BUN Creatinine Est GFR (CKD-EPI)AfAm Est GFR (CKD-EPI)NonAf Random Glucose Calcium Blood Type Antibody Screen Crossmatch Active Medications Generic Name Dose Route Start Last Admin Trade Name Freq PRN Reason Stop Dose Admin Albuterol Sulfate 2 puff 04/22/19 19:00 Ventolin Hfa Inhaler - IH Q6H PRN SHORTNESS OF BREATH Benztropine Mesylate 0.5 mg 04/22/19 22:00 04/25/19 22:19 Cogentin - PO 0.5 mg BID [facility]H Administration Budesonide/Formoterol Fumarate 1 puff 04/25/19 10:00 04/25/19 22:21 Symbicort 160/4.5mcg - IH 1 puff BID [facility] Administration Buspirone HCl 10 mg 04/22/19 22:00 04/26/19 06:01 Buspar - PO Not Given TID [facility] Chlorhexidine Gluconate 1 applic 04/26/19 22:00 Hibiclens For Decolonization - TP HS [facility] Cholecalciferol 800 unit 04/23/19 10:00 04/25/19 09:47 Vitamin D3 - PO 800 unit DAILY [facility] Administration Cyclobenzaprine HCl 10 mg 04/22/19 22:00 04/25/19 21:20 Flexeril - PO 10 mg BID [facility] Administration Dexamethasone Sodium Phosphate 10 mg 04/26/19 15:15 Decadron Injection - IVPB 04/27/19 11:16 Q4H ANH Diltiazem HCl 180 mg 04/23/19 10:00 04/25/19 09:47 Cardizem Cd - PO 180 mg DAILY [facility] Administration Diphenhydramine HCl 25 mg 04/22/19 18:50 Benadryl - PO Q6H PRN FOR ITCHING Docusate Sodium 100 mg 04/22/19 22:00 04/26/19 06:01 Colace - PO Not Given TID [facility] Duloxetine HCl 60 mg 04/23/19 10:00 04/25/19 09:48 Cymbalta - PO 60 mg DAILY [facility] Administration Fentanyl 50 mcg 04/26/19 10:32 Sublimaze Injection - IVPUSH [id number] PRN PAIN-PACU ORDER X 4 DOSES ONLY Fentanyl 50 mcg 04/26/19 13:32 Sublimaze Injection - IVPUSH [id number] PRN PAIN-PACU ORDER X 4 DOSES ONLY Folic Acid 1 mg 04/23/19 10:00 04/25/19 09:47 Folic Acid - PO 1 mg DAILY [facility] Administration Gabapentin 300 mg 04/22/19 22:00 04/25/19 21:20 Neurontin - PO 300 mg BID [facility] Administration Guaifenesin 10 ml 04/23/19 17:11 Robitussin - PO Q6H PRN COUGH Lactated Ringer's 1,000 ml in 1,000 mls @ 100 mls/hr 04/26/19 10:05 Lactated Ringers Solution IV ASDIR ANH Cefazolin Sodium 1 gm in 50 mls @ 100 mls/hr 04/26/19 18:00 Ancef 1 Gm Premixed Ivpb - IVPB 04/27/19 02:29 Q8H-IV ANH Propofol 100 mls @ 2.694 mls/hr 04/26/19 10:45 Diprivan - IVPB TITR [facility] Protocol 5 MCG/KG/MIN Lactated Ringer's 1,000 mls @ 125 mls/hr 04/26/19 13:45 Lactated Ringers Solution IV ASDIR ANH Fentanyl 500 mcg/ Dextrose 100 mls @ 2 mls/hr 04/26/19 13:45 IVPB 04/27/19 13:44 TITR [facility] Protocol 10 MCG/HR Morphine Sulfate 4 mg 04/26/19 10:34 Morphine Sulfate IVPUSH 04/27/19 10:33 Q3H PRN PAIN LEVEL 1-5 Mupirocin 1 applic 04/26/19 22:00 Bactroban Ointment (For Decolonization) - NS 05/01/19 21:59 BID ANH Ondansetron HCl 4 mg 04/26/19 10:32 Zofran Injection IVPUSH Q6H PRN NAUSEA AND/OR VOMITING Ondansetron HCl 4 mg 04/26/19 13:32 Zofran Injection IVPUSH Q6H PRN NAUSEA AND/OR VOMITING Oxycodone HCl 5 mg 04/23/19 14:00 04/25/19 18:30 Roxicodone - PO 5 mg Q6H PRN Administration PAIN LEVEL 1-5 Pantoprazole Sodium 40 mg 04/23/19 10:00 04/25/19 09:47 Protonix - PO 40 mg DAILY [facility] Administration Polyethylene Glycol 17 gm 04/23/19 10:00 04/25/19 09:56 Miralax (For Daily Use) - PO 17 gm DAILY [facility] Administration Promethazine HCl 12.5 mg 04/26/19 10:32 Phenergan Injection - IVPUSH Q6H PRN NAUSEA-FOR RESCUE AFTER 15 MIN Senna/Docusate Sodium 1 tablet 04/22/19 22:00 04/25/19 21:19 Pericolace - PO 1 tablet HS [facility] Administration Tiotropium [place] 2 puff 04/25/19 10:00 04/25/19 09:54 Spiriva Respimat IH 2 puff DAILY [facility] Administration Ziprasidone 20 mg 04/26/19 11:22 Geodon - PO DAILY [facility] ASSESSMENT/PLAN: Pt is a 58 y/o lady with a significant past medical history of CAD (Cath in 2015 shows nonobstructive disease), COPD, NIDDM, CKD GERD, HTN, HLD, Schizoaffective Disorder, and Major depression who is s/p wound exploration and evacuation of hematoma. # Anterior Neck Hematoma -s/p Evacuation 04/26/19 -Decadron 10 Q4H for airway swelling and edema -Fentanyl and propofol for sedation -CBC, BMP in am -Monitor for signs of reforming hematoma -Pain control per surgery #FEN -LR @125cc/hr -Monitor Electrolytes -NPO #DVT ppx: -SCDs Dispo: We will continue to follow the patient. Thank you for this consultative opportunity. Visit type - Emergency Visit Emergency Visit: No - New Patient This patient is new to me today: Yes Date on this admission: 04/26/19 - Critical Care Critical Care patient: Yes Total Critical Care Time (in minutes): 35 Critical Care Statement: The care of this patient involved high complexity decision making to prevent further life threatening deterioration of the patient 's condition and/or to evaluate & treat vital organ system(s) failure or risk of failure. ATTENDING PHYSICIAN STATEMENT I saw and evaluated the patient. I reviewed the resident's note and discussed the case with the resident. I agree with the resident's findings and plan as documented. SUBJECTIVE: OBJECTIVE: ASSESSMENT AND PLAN:
[2019-04-26] MEDS ORDERED: ALBUTEROL SO4 8 GM HFA INHALER IH PRN (16:34)
[2019-04-26] MEDS ORDERED: diphenhydrAMINE HCL 25 MG CAPSULE (FP) PO PRN (16:34)
[2019-04-26] MEDS ORDERED: oxyCODONE HCL 5 MG TABLET PO PRN (16:34)
[2019-04-26] MEDS ORDERED: guaiFENesin 200 MG/10 ML 10 ML UNIT-DOSE CUPS PO PRN (16:34)
[2019-04-26] MEDS: PROPOFOL 1,000,000 MCG/100 ML VIAL IVPB SCH ×2 (16:34→22:17)
[2019-04-26] MEDS ORDERED: ceFAZolin SODIUM 1 GM VIAL ONE (17:21)
[2019-04-26] MEDS ORDERED: DEXTROSE 5%-WATER - 50 ML IVPB ONE (17:21)
[2019-04-26] MEDS: CEFAZOLIN 1 GM in DEXTROSE 5%-WATER - 50 ML IVPB SCH (17:24)
[2019-04-26] MEDS ORDERED: CEFAZOLIN 1 GM/D5W 1 GM/50 ML BAG IVPB SCH (18:00)
[2019-04-26] MEDS: CYCLOBENZAPRINE HCL 10 MG TABLET (FP) PO SCH (21:03)
[2019-04-26] MEDS: SENNOSIDES/DOCUSATE COMBO (SENNA PLUS) TABLET (UD) PO SCH (21:03)
[2019-04-26] MEDS: BENZTROPINE MESYLATE 0.5 MG TABLET (FP) PO SCH (21:03)
[2019-04-26] MEDS: GABAPENTIN 100 MG CAPSULE (FP) PO SCH (21:03)
[2019-04-26] MEDS: BUDESONIDE/FORMETEROL FUMARATE 160/4.5 mcg INHALER IH SCH (21:04)
[2019-04-26] MEDS: MUPIROCIN 2% TOPICAL OINTMENT FOR DECOLONIZATION NS SCH (21:07)
[2019-04-26] MEDS ORDERED: MUPIROCIN 2% TOPICAL OINTMENT FOR DECOLONIZATION NS SCH ×2 (22:00)
[2019-04-26] MEDS ORDERED: HEPARIN NA (PORCINE) 5,000 UNITS/ML 1ML VIAL SQ SCH (22:00)
[2019-04-26] MEDS ORDERED: CHLORHEXIDINE GLUCONATE 4% CLEANSER FOR DECOLONIZATION TP SCH (22:00)
[2019-04-26] MEDS: CHLORHEXIDINE GLUCONATE 4% CLEANSER FOR DECOLONIZATION TP SCH (22:18)
[2019-04-27] MEDS: DEXAMETHASONE SOD PHOSPHATE 10 MG/1 ML VIAL IVPB SCH ×4 (00:08→11:27)
[2019-04-27] MEDS ORDERED: DEXTROSE 5%-WATER - 50 ML IVPB ONE ×2 (00:54→03:08)
[2019-04-27] MEDS ORDERED: ceFAZolin SODIUM 1 GM VIAL ONE ×2 (00:54→03:08)
[2019-04-27] MEDS: CEFAZOLIN 1 GM in DEXTROSE 5%-WATER - 50 ML IVPB SCH (03:06)
[2019-04-27] MEDS ORDERED: fentaNYL CITRATE 250 MCG/5 ML VIAL ONE ×3 (03:37→19:14)
[2019-04-27] MEDS: FENTANYL INJECTION 500 MCG in DEXTROSE 5%-WATER - 90 ML IVPB SCH ×4 (04:39→22:44)
[2019-04-27] MEDS: PROPOFOL 1,000,000 MCG/100 ML VIAL IVPB SCH ×3 (04:40→22:45)
[2019-04-27] MEDS: busPIRone HCL 10 MG TABLET (FP) PO SCH ×3 (06:05→21:03)
[2019-04-27] MEDS: DOCUSATE SODIUM 100 MG CAPSULE (FP) PO SCH ×3 (06:05→21:04)
[2019-04-27 07:17] LABS: BASO % 0.2 % (0-2.0); HEMATOCRIT 33.6 % (32.4-45.2); HEMOGLOBIN 11.4 GM/dL (10.7-15.3); MCH 28.7 pg (25.7-33.7); MEAN CELL VOLUME 84.4 fl (80-96); MEAN PLT VOLUME 9.5 fl (7.5-11.1); MONO % 1.2 % (3.8-10.2); NEUT % 91.6 % (42.8-82.8); PLATELET COUNT 172 K/MM3 (134-434); RBC 3.98 M/mm3 (3.60-5.2); RDW 13.3 % (11.6-15.6); WHITE BLOOD COUNT 7.1 K/mm3 (4.0-10.0)
--- NOTE | 2019-04-27 07:30 | PN ---
Progress Note, Physician Chief Complaint: PATIENT SEEN IN ICU INTUBATED ON VENT SUPPORT FOR AIRWAY PROTECTION SEDATED EVENTS REVIEWED S/P DRAINAGE OF NECK HEMATOMA - Current Medication List Current Medications: Active Medications Albuterol Sulfate (Ventolin Hfa Inhaler -) 2 puff IH Q6H PRN PRN Reason: SHORTNESS OF BREATH Benztropine Mesylate (Cogentin -) 0.5 mg PO BID [facility] Last Admin: 04/26/19 21:03 Dose: Not Given Budesonide/Formoterol Fumarate (Symbicort 160/4.5mcg -) 1 puff IH BID [facility] Last Admin: 04/26/19 21:04 Dose: Not Given Buspirone HCl (Buspar -) 10 mg PO TID [facility] Last Admin: 04/27/19 06:05 Dose: Not Given Chlorhexidine Gluconate (Hibiclens For Decolonization -) 1 applic TP HS [facility] Last Admin: 04/26/19 22:18 Dose: 1 applic Cholecalciferol (Vitamin D3 -) 800 unit PO DAILY [facility] Cyclobenzaprine HCl (Flexeril -) 10 mg PO BID [facility] Last Admin: 04/26/19 21:03 Dose: Not Given Dexamethasone Sodium Phosphate (Decadron Injection -) 10 mg IVPB Q4H [facility] Stop: 04/27/19 11:16 Last Admin: 04/27/19 06:43 Dose: 10 mg Diltiazem HCl (Cardizem Cd -) 180 mg PO DAILY [facility] Diphenhydramine HCl (Benadryl -) 25 mg PO Q6H PRN PRN Reason: FOR ITCHING Docusate Sodium (Colace -) 100 mg PO TID [facility] Last Admin: 04/27/19 06:05 Dose: Not Given Duloxetine HCl (Cymbalta -) 60 mg PO DAILY [facility] Fentanyl (Sublimaze Injection -) 50 mcg IVPUSH [id number] PRN PRN Reason: PAIN-PACU ORDER X 4 DOSES ONLY Folic Acid (Folic Acid -) 1 mg PO DAILY [facility] Gabapentin (Neurontin -) 300 mg PO BID [facility] Last Admin: 04/26/19 21:03 Dose: Not Given Guaifenesin (Robitussin -) 10 ml PO Q6H PRN PRN Reason: COUGH Fentanyl 500 mcg/ Dextrose 100 mls @ 2 mls/hr IVPB TITR ON [facility]; Protocol Stop: 04/27/19 13:44 Last Admin: 04/27/19 04:39 Dose: 100 mcg/hr, 20 mls/hr Lactated Ringer's (Lactated Ringers Solution) 1,000 ml in 1,000 mls @ 100 mls/ hr IV ASDIR [facility] Last Admin: 04/26/19 16:30 Dose: 100 mls/hr Propofol (Diprivan -) 1,000,000 mcg in 100 mls @ 2.694 mls/hr IVPB TITR [facility]; Protocol Last Admin: 04/27/19 04:40 Dose: 25 mcg/kg/min, 13.472 mls/hr Morphine Sulfate (Morphine Sulfate) 4 mg IVPUSH Q3H PRN PRN Reason: PAIN LEVEL 1-5 Stop: 04/27/19 10:33 Mupirocin (Bactroban Ointment (For Decolonization) -) 1 applic NS BID [facility] Stop: 05/01/19 21:59 Last Admin: 04/26/19 21:07 Dose: 1 applic Ondansetron HCl (Zofran Injection) 4 mg IVPUSH Q6H PRN PRN Reason: NAUSEA AND/OR VOMITING Oxycodone HCl (Roxicodone -) 5 mg PO Q6H PRN PRN Reason: PAIN LEVEL 1-5 Pantoprazole Sodium (Protonix -) 40 mg PO DAILY [facility] Polyethylene Glycol (Miralax (For Daily Use) -) 17 gm PO DAILY [facility] Promethazine HCl (Phenergan Injection -) 12.5 mg IVPUSH Q6H PRN PRN Reason: NAUSEA-FOR RESCUE AFTER 15 MIN Senna/Docusate Sodium (Pericolace -) 1 tablet PO HS [facility] Last Admin: 04/26/19 21:03 Dose: Not Given Tiotropium [place] (Spiriva Respimat) 2 puff IH DAILY [facility] Ziprasidone (Geodon -) 20 mg PO DAILY [facility] - Objective Vital Signs: Vital Signs Temperature 97.9 F 04/27/19 06:00 Pulse Rate 46 L 04/27/19 06:00 Respiratory Rate 14 04/27/19 06:00 Blood Pressure 104/58 L 04/27/19 06:00 O2 Sat by Pulse Oximetry (%) 100 04/26/19 19:53 Constitutional: Yes: Other Neck: Yes: Other (SEWEELING WITH ECHYMOSIS, PURELENT DISCHARGE TO DRESSING) Cardiovascular: Yes: Regular Rate and Rhythm Respiratory: Yes: Mechanically Ventilated Gastrointestinal: Yes: Soft Genitourinary: Yes: Rocha Present Edema: Yes Labs: INR, PTT INR 0.88 (0.83-1.09) 04/22/19 09:30 Problem List - Problems (1) H/O tobacco use, presenting hazards to health Code(s): Z87.891 - PERSONAL HISTORY OF NICOTINE DEPENDENCE (2) Cervical spine disease Code(s): M48.9 - SPONDYLOPATHY, UNSPECIFIED (3) COPD (chronic obstructive pulmonary disease) Code(s): J44.9 - CHRONIC OBSTRUCTIVE PULMONARY DISEASE, UNSPECIFIED (4) Cervical disc disease Code(s): M50.90 - CERVICAL DISC DISORDER, UNSP, UNSPECIFIED CERVICAL REGION (5) Diabetes Code(s): E11.9 - TYPE 2 DIABETES MELLITUS WITHOUT COMPLICATIONS (6) Anemia Code(s): D64.9 - ANEMIA, UNSPECIFIED (7) HTN (hypertension) Code(s): I10 - ESSENTIAL (PRIMARY) HYPERTENSION (8) Schizoaffective disorder Code(s): F25.9 - SCHIZOAFFECTIVE DISORDER, UNSPECIFIED Assessment/Plan S/P DRAINAGE OF HEMATOMA TO NECK FROM POST-OP CSPINE SURGERY IN ICU INTUBATED FOR AIRWAY PROTECTION MONITOR AIRWAY, KEEP INTUBATED FOR 24 MORE HOURS UNTIL AIRWAY HAS BEEN CONFIRMED THAT IT IS STABLE TO REMOVE ET TUBE. PULM EVAL CHANGE DRESSINGS D/W SURGERY PA DVT PROPHYLAXIS
[2019-04-27 07:34] LABS: ACTIVATED PTT 26.8 SECONDS (25.2-36.5)
[2019-04-27 07:36] LABS: ALBUMIN 2.1 g/dl (3.4-5.0); BILIRUBIN,TOTAL 0.4 mg/dL (0.2-1); BLOOD UREA NITROGEN 15.3 mg/dL (7-18); CREATININE 0.7 mg/dL (0.55-1.3); MAGNESIUM 1.8 mg/dL (1.8-2.4); PHOSPHOROUS 3.5 mg/dL (2.5-4.9); POTASSIUM 4.1 mmol/L (3.5-5.1); TOT PROT 4.9 g/dl (6.4-8.2)
--- NOTE | 2019-04-27 08:06 | PN ---
Progress Note (short form) - Note Progress Note: 59yo F s/p C4 corpectomy, hematoma evacuation and washout x 2, with uncontrolled bleeding. Pt seen and examined in ICU bed, pt continues to be intubated, but is awake and reacts to stimuli. Pt afebrile overnight, and no active bleeding overnight. Pt continues to have significant cervical swelling, currently on decadron. Last Vital Signs Temp Pulse Resp BP Pulse Ox 97.9 F 46 L 14 104/58 L 100 04/27/19 06:00 04/27/19 06:00 04/27/19 06:00 04/27/19 06:00 04/26/19 19:53 CBC, BMP 04/27/19 06:10 04/27/19 06:10 PE: Gen: A&O x3 Resp: breathing with ET tube Neck: significant swelling, dressing in place with serous drainage Problem List - Problems (1) Cervical disc disease Assessment/Plan: Plan -continue airway management per medicine ICU team, understand pt has a lot of swelling and significant COPD -pain management -DVT ppx Code(s): M50.90 - CERVICAL DISC DISORDER, UNSP, UNSPECIFIED CERVICAL REGION
--- NOTE | 2019-04-27 09:31 | SURG ---
Surgery Frame Operator Note Frame Operator: Dain López PA-C Date of Service: 04/22/19 Diagnosis: Cervical Spondylotic Myelopathy Procedure: 1. Interbody Cage (Corpectomy) 2. C3 Caudal Hemicorpectomy w/ resection of osteophytes & posterior longitudinal ligament (technically challenging) 3. C4 Corpectomy w/ resection of osteophytes & posterior longitudinal ligament (technically challenging) 4. C5 Rostral Hemicorpectomy w/ resection of osteophytes & posterior longitudinal ligament (technically challenging) 5. Anterior Instrumentation C3-C5 (technically challenging) 6. Fluroscopy 7. Microdissection 8. C3/4 Arthrodesis 9. C4/5 Arthrodesis 10. Local autograft 11. Deformity correction (sikhism of lordosis) I was present for the entirety of the operative procedure. For further detail, please refer to operative report. Visit type - Case Type Case Type: Scheduled - New patient This patient is new to me today: Yes Date on this admission: 04/27/19
--- NOTE | 2019-04-27 09:39 | PN ---
Progress Note (short form) - Note Progress Note: POD 1 s/p exploration of neck with evacuation of hematoma. Patient remains intubated for airway management in ICU. Did well overnight, patient responsive. Management per primary team.
[2019-04-27] MEDS ORDERED: TIOTROPIUM BROMIDE 2.5 MCG (SPIRIVA) RESPIMAT INHALER IH SCH (10:00)
[2019-04-27] MEDS ORDERED: PANTOPRAZOLE 40 MG TABLET (FP) PO SCH (10:00)
[2019-04-27] MEDS: MUPIROCIN 2% TOPICAL OINTMENT FOR DECOLONIZATION NS SCH ×2 (11:00→21:09)
[2019-04-27] MEDS: DULoxetine HCL 30 MG CAPSULE.DR PO SCH (11:16)
[2019-04-27] MEDS: BENZTROPINE MESYLATE 0.5 MG TABLET (FP) PO SCH ×2 (11:16→21:04)
[2019-04-27] MEDS: FOLIC ACID 1 MG TABLET (FP) PO SCH (11:17)
[2019-04-27] MEDS: CYCLOBENZAPRINE HCL 10 MG TABLET (FP) PO SCH ×2 (11:17→21:04)
[2019-04-27] MEDS: POLYETHYLENE GLYCOL 3350 119 GM BTL PO SCH (11:17)
[2019-04-27] MEDS: ZIPRASIDONE 20 MG CAPSULE PO SCH (11:17)
[2019-04-27] MEDS: GABAPENTIN 100 MG CAPSULE (FP) PO SCH ×2 (11:18→21:04)
[2019-04-27] MEDS: CHOLECALCIFEROL (VIT D3) 400 UNIT (10 MCG) TABLET PO SCH (11:18)
[2019-04-27] MEDS: BUDESONIDE/FORMETEROL FUMARATE 160/4.5 mcg INHALER IH SCH ×2 (11:25→21:04)
--- NOTE | 2019-04-27 11:49 | PN ---
Teaching Attending Note Name of Resident: Melly Medrano ATTENDING PHYSICIAN STATEMENT I saw and evaluated the patient. I reviewed the resident's note and discussed the case with the resident. I agree with the resident's findings and plan as documented. SUBJECTIVE: Pt seen and examined in the ICU. Remains intubated, awake off sedation. Frequent coughing. +leak with cuff deflation. OBJECTIVE: Vital Signs Period Temp Pulse Resp BP Sys/Mcdaniel Pulse Ox Last 24 Hr 97.6 F-98.2 F 46-95 14-27 92-182/45-96 98-100 Intake & Output 04/24/19 04/25/19 04/26/19 04/27/19 23:59 23:59 23:59 23:59 Intake Total 2246 600 3712.1 1646 Output Total 1360 400 Balance 2246 600 2352.1 1246 Gen: intubated, awake Heart: RRR Lung: decreased breath sounds at the bases Abd: soft, nontender Ext: no edema CBC, BMP 04/27/19 06:10 04/27/19 06:10 Active Medications Albuterol Sulfate (Ventolin Hfa Inhaler -) 2 puff IH Q6H PRN PRN Reason: SHORTNESS OF BREATH Albuterol/Ipratropium (Duoneb -) 1 amp NEB RQID [facility] Benztropine Mesylate (Cogentin -) 0.5 mg PO BID [facility] Last Admin: 04/27/19 11:16 Dose: Not Given Budesonide/Formoterol Fumarate (Symbicort 160/4.5mcg -) 1 puff IH BID [facility] Last Admin: 04/27/19 11:25 Dose: Not Given Buspirone HCl (Buspar -) 10 mg PO TID [facility] Last Admin: 04/27/19 06:05 Dose: Not Given Chlorhexidine Gluconate (Hibiclens For Decolonization -) 1 applic TP HS [facility] Last Admin: 04/26/19 22:18 Dose: 1 applic Cholecalciferol (Vitamin D3 -) 800 unit PO DAILY [facility] Last Admin: 04/27/19 11:18 Dose: Not Given Cyclobenzaprine HCl (Flexeril -) 10 mg PO BID [facility] Last Admin: 04/27/19 11:17 Dose: Not Given Diltiazem HCl (Cardizem Cd -) 180 mg PO DAILY [facility] Last Admin: 04/27/19 11:16 Dose: Not Given Diphenhydramine HCl (Benadryl -) 25 mg PO Q6H PRN PRN Reason: FOR ITCHING Docusate Sodium (Colace -) 100 mg PO TID [facility] Last Admin: 04/27/19 06:05 Dose: Not Given Duloxetine HCl (Cymbalta -) 60 mg PO DAILY [facility] Last Admin: 04/27/19 11:16 Dose: Not Given Fentanyl (Sublimaze Injection -) 50 mcg IVPUSH [id number] PRN PRN Reason: PAIN-PACU ORDER X 4 DOSES ONLY Folic Acid (Folic Acid -) 1 mg PO DAILY [facility] Last Admin: 04/27/19 11:17 Dose: Not Given Gabapentin (Neurontin -) 300 mg PO BID [facility] Last Admin: 04/27/19 11:18 Dose: Not Given Guaifenesin (Robitussin -) 10 ml PO Q6H PRN PRN Reason: COUGH Fentanyl 500 mcg/ Dextrose 100 mls @ 2 mls/hr IVPB TITR [facility]; Protocol Stop: 04/27/19 13:44 Last Titration: 04/27/19 11:15 Dose: 100 mcg/hr, 20 mls/hr Lactated Ringer's (Lactated Ringers Solution) 1,000 ml in 1,000 mls @ 100 mls/ hr IV ASDIR [facility] Last Admin: 04/26/19 16:30 Dose: 100 mls/hr Propofol (Diprivan -) 1,000,000 mcg in 100 mls @ 2.694 mls/hr IVPB TITR [facility]; Protocol Last Titration: 04/27/19 11:15 Dose: 25 mcg/kg/min, 13.472 mls/hr Morphine Sulfate (Morphine Sulfate) 4 mg IVPUSH Q3H PRN PRN Reason: PAIN LEVEL 1-5 Stop: 04/27/19 10:33 Mupirocin (Bactroban Ointment (For Decolonization) -) 1 applic NS BID [facility] Stop: 05/01/19 21:59 Last Admin: 04/27/19 11:00 Dose: 1 applic Ondansetron HCl (Zofran Injection) 4 mg IVPUSH Q6H PRN PRN Reason: NAUSEA AND/OR VOMITING Oxycodone HCl (Roxicodone -) 5 mg PO Q6H PRN PRN Reason: PAIN LEVEL 1-5 Pantoprazole Sodium (Protonix -) 40 mg PO DAILY [facility] Last Admin: 04/27/19 11:18 Dose: Not Given Polyethylene Glycol (Miralax (For Daily Use) -) 17 gm PO DAILY [facility] Last Admin: 04/27/19 11:17 Dose: Not Given Promethazine HCl (Phenergan Injection -) 12.5 mg IVPUSH Q6H PRN PRN Reason: NAUSEA-FOR RESCUE AFTER 15 MIN Senna/Docusate Sodium (Pericolace -) 1 tablet PO HS [facility] Last Admin: 04/26/19 21:03 Dose: Not Given Tiotropium [place] (Spiriva Respimat) 2 puff IH DAILY [facility] Last Admin: 04/27/19 11:25 Dose: Not Given Ziprasidone (Geodon -) 20 mg PO DAILY [facility] Last Admin: 04/27/19 11:17 Dose: Not Given ASSESSMENT AND PLAN: Cervical Stenosis with radiculopathy s/p C4 corpectomy, PEEK cage, anterior plate Post op Hematoma s/p Hematoma evacuation/Ligation of bleeding vessel Acute Respiratory Failure COPD CAD DM HTN Schizoaffective Disorder - tolerating CPAP/PS trials but will keep intubated for concern for coughing and recurrent bleed - inhaled bronchodilators - monitor H/H - continue decadron - monitor cuff leak - if no evidence of further bleeding, will attempt extubation in AM - DVT prophylaxis - continue ICU monitoring critical care time spent in reviewing chart, evaluating patient and formulating plan 35 min
[2019-04-27] MEDS: ALBUTEROL SO4 2.5/IPRATROPIUM 0.5 INH SOL 3 ML VIAL.NEB. NEB SCH ×3 (12:27→20:30)
[2019-04-27 13:25] LABS: PLATELET ESTIMATE ADEQUATE
[2019-04-27] MEDS: LACTATED RINGERS SOLUTION 1,000 ML/1,000 ML INFUS.BAG IV SCH ×2 (13:52→22:46)
[2019-04-27] MEDS: DEXAMETHASONE SOD PHOSPHATE 10 MG/1 ML VIAL IVPUSH SCH ×2 (13:53→17:38)
[2019-04-27] MEDS: PANTOPRAZOLE SODIUM 40 MG VIAL IVPUSH SCH (13:56)
--- NOTE | 2019-04-27 14:05 | PN ---
Physical Exam: SUBJECTIVE: Patient seen and examined at bedside. pt is intubated. sedation was weaned and pt was responsive and able to follow commands. OBJECTIVE: Vital Signs Period Temp Pulse Resp BP Sys/Mcdaniel Pulse Ox Last 24 Hr 97.6 F-98.2 F 46-84 11-20 92-138/56-93 98-100 GENERAL: The patient is awake, alert, in no acute distress. pt is intubated EYES: PERRL ENT: anterior neck dressing intact, neck is edematous. pt has positive leak test. LUNGS: vent sounds b/l, no accessory muscle use. HEART: Regular rate and rhythm, S1, S2 ABDOMEN: Soft, nontender, nondistended, normoactive bowel sounds, no guarding EXTREMITIES: 2+ pulses, warm, well-perfused, no edema. Laboratory Last Values WBC 7.1 K/mm3 (4.0-10.0) 04/27/19 06:10 RBC 3.98 M/mm3 (3.60-5.2) 04/27/19 06:10 Hgb 11.4 GM/dL (10.7-15.3) 04/27/19 06:10 Hct 33.6 % (32.4-45.2) 04/27/19 06:10 MCV 84.4 fl (80-96) 04/27/19 06:10 MCH 28.7 pg (25.7-33.7) 04/27/19 06:10 MCHC 34.0 g/dl (32.0-36.0) 04/27/19 06:10 RDW 13.3 % (11.6-15.6) 04/27/19 06:10 Plt Count 172 K/MM3 (134-434) D 04/27/19 06:10 MPV 9.5 fl (7.5-11.1) 04/27/19 06:10 Absolute Neuts (auto) 6.5 K/mm3 (1.5-8.0) 04/27/19 06:10 Total Counted 100 04/26/19 15:15 Neutrophils % 91.6 % (42.8-82.8) H 04/27/19 06:10 Neutrophils % (Manual) 96.7 % (42.8-82.8) H 04/27/19 06:10 Band Neutrophils % 0.0 % 04/27/19 06:10 Lymphocytes % 7.0 % (8-40) L D 04/27/19 06:10 Lymphocytes % (Manual) 3.3 % (8-40) L D 04/27/19 06:10 Monocytes % 1.2 % (3.8-10.2) L 04/27/19 06:10 Monocytes % (Manual) 0 % (3.8-10.2) L D 04/27/19 06:10 Eosinophils % 0.0 % (0-4.5) D 04/27/19 06:10 Eosinophils % (Manual) 0.0 % (0-4.5) 04/27/19 06:10 Basophils % 0.2 % (0-2.0) 04/27/19 06:10 Basophils % (Manual) 0.0 % (0-2.0) 04/27/19 06:10 Myelocytes % (Man) 0 % (0-2) 04/27/19 06:10 Promyelocytes % (Man) 0 % (0-2) 04/27/19 06:10 Blast Cells % (Manual) 0 % (0-0) 04/27/19 06:10 Nucleated RBC % 0 % (0-0) 04/27/19 06:10 Metamyelocytes 0 % (0-2) 04/27/19 06:10 Hypochromia 0 04/23/19 07:25 Platelet Estimate Adequate 04/27/19 06:10 Platelet Comment Present 04/23/19 07:25 Polychromasia 0 04/23/19 07:25 Poikilocytosis 1+ 04/23/19 07:25 Anisocytosis 2+ 04/23/19 07:25 Microcytosis 1+ 04/23/19 07:25 Macrocytosis 0 04/23/19 07:25 Ovalocytes 1+ 04/23/19 07:25 Stomatocytes 1+ 04/23/19 07:25 PT with INR SEC (9.7-13.0) 04/27/19 06:10 INR No Result Required. 04/27/19 06:10 PTT (Actin FS) 26.8 SECONDS (25.2-36.5) 04/27/19 06:10 Anticoagulation Therapy No Result Required. 04/26/19 11:20 Puncture Site Right radial 04/26/19 11:20 ABG pH 7.48 (7.35-7.45) H 04/26/19 11:20 ABG pCO2 at Pt Temp 37.4 mmHg (35-45) 04/26/19 11:20 ABG pO2 at Pt Temp 93.2 mmHg (80-100) 04/26/19 11:20 ABG HCO3 27.4 mmol/L (22-27) H 04/26/19 11:20 ABG O2 Sat (Measured) 97.4 % (95-98) 04/26/19 11:20 ABG O2 Content 16.0 % vol 04/26/19 11:20 ABG Base Excess 4.1 meq/l (-2-2) H 04/26/19 11:20 Christoph Test Positive 04/26/19 11:20 O2 Delivery Device No Result Required. 04/26/19 11:20 Oxygen Flow Rate Yes 04/26/19 11:20 Vent Mode No Result Required. 04/26/19 11:20 Vent Rate No Result Required. 04/26/19 11:20 Mechanical Rate No Result Required. 04/26/19 11:20 Pressure Support Vent No Result Required. 04/26/19 11:20 Sodium 137 mmol/L (136-145) 04/27/19 06:10 Potassium 4.1 mmol/L (3.5-5.1) 04/27/19 06:10 Chloride 104 mmol/L (98-107) 04/27/19 06:10 Carbon Dioxide 27 mmol/L (21-32) 04/27/19 06:10 Anion Gap 6 MMOL/L (8-16) L 04/27/19 06:10 BUN 15.3 mg/dL (7-18) 04/27/19 06:10 Creatinine 0.7 mg/dL (0.55-1.3) 04/27/19 06:10 Est GFR (CKD-EPI)AfAm 108.38 04/27/19 06:10 Est GFR (CKD-EPI)NonAf 93.51 04/27/19 06:10 POC Glucometer 171 UNITS (80-120) 04/22/19 20:08 Random Glucose 185 mg/dL (74-106) H 04/27/19 06:10 Calcium 8.0 mg/dL (8.5-10.1) L 04/27/19 06:10 Phosphorus 3.5 mg/dL (2.5-4.9) 04/27/19 06:10 Magnesium 1.8 mg/dL (1.8-2.4) 04/27/19 06:10 Total Bilirubin 0.4 mg/dL (0.2-1) 04/27/19 06:10 AST 14 U/L (15-37) L 04/27/19 06:10 ALT 20 U/L (13-61) 04/27/19 06:10 Alkaline Phosphatase 95 U/L (45-117) 04/27/19 06:10 Ammonia 13.70 umol/L (11-32) 04/23/19 09:25 Creatine Kinase 87 U/L (26-192) 04/23/19 07:25 Troponin I < 0.02 ng/ml (0.00-0.05) 04/23/19 07:25 Total Protein 4.9 g/dl (6.4-8.2) L 04/27/19 06:10 Albumin 2.1 g/dl (3.4-5.0) L 04/27/19 06:10 Blood Type O POSITIVE 04/26/19 07:45 Antibody Screen Negative 04/26/19 07:45 Crossmatch See Detail 04/26/19 07:45 Current Medications Albuterol Sulfate (Ventolin Hfa Inhaler -) 2 puff IH Q6H PRN PRN Reason: SHORTNESS OF BREATH Albuterol/Ipratropium (Duoneb -) 1 amp NEB RQID [facility] Last Admin: 04/27/19 12:27 Dose: 1 amp Benztropine Mesylate (Cogentin -) 0.5 mg PO BID [facility] Last Admin: 04/27/19 11:16 Dose: Not Given Budesonide/Formoterol Fumarate (Symbicort 160/4.5mcg -) 1 puff IH BID [facility] Last Admin: 04/27/19 11:25 Dose: Not Given Buspirone HCl (Buspar -) 10 mg PO TID [facility] Last Admin: 04/27/19 06:05 Dose: Not Given Chlorhexidine Gluconate (Hibiclens For Decolonization -) 1 applic TP HS [facility] Last Admin: 04/26/19 22:18 Dose: 1 applic Cholecalciferol (Vitamin D3 -) 800 unit PO DAILY [facility] Last Admin: 04/27/19 11:18 Dose: Not Given Cyclobenzaprine HCl (Flexeril -) 10 mg PO BID [facility] Last Admin: 04/27/19 11:17 Dose: Not Given Dexamethasone Sodium Phosphate (Decadron Injection -) 10 mg IVPUSH Q8H-IV [facility] Last Admin: 04/27/19 13:53 Dose: Not Given Diltiazem HCl (Cardizem Cd -) 180 mg PO DAILY [facility] Last Admin: 04/27/19 11:16 Dose: Not Given Diphenhydramine HCl (Benadryl -) 25 mg PO Q6H PRN PRN Reason: FOR ITCHING Docusate Sodium (Colace -) 100 mg PO TID [facility] Last Admin: 04/27/19 06:05 Dose: Not Given Duloxetine HCl (Cymbalta -) 60 mg PO DAILY [facility] Last Admin: 04/27/19 11:16 Dose: Not Given Fentanyl (Sublimaze Injection -) 50 mcg IVPUSH [id number] PRN PRN Reason: PAIN-PACU ORDER X 4 DOSES ONLY Folic Acid (Folic Acid -) 1 mg PO DAILY [facility] Last Admin: 04/27/19 11:17 Dose: Not Given Gabapentin (Neurontin -) 300 mg PO BID [facility] Last Admin: 04/27/19 11:18 Dose: Not Given Guaifenesin (Robitussin -) 10 ml PO Q6H PRN PRN Reason: COUGH Lactated Ringer's (Lactated Ringers Solution) 1,000 ml in 1,000 mls @ 100 mls/ hr IV ASDIR [facility] Last Admin: 04/27/19 13:52 Dose: 100 mls/hr Propofol (Diprivan -) 1,000,000 mcg in 100 mls @ 2.694 mls/hr IVPB TITR [facility]; Protocol Last Admin: 04/27/19 13:52 Dose: 25 mcg/kg/min, 13.472 mls/hr Morphine Sulfate (Morphine Sulfate) 4 mg IVPUSH Q3H PRN PRN Reason: PAIN LEVEL 1-5 Stop: 04/27/19 10:33 Mupirocin (Bactroban Ointment (For Decolonization) -) 1 applic NS BID [facility] Stop: 05/01/19 21:59 Last Admin: 04/27/19 11:00 Dose: 1 applic Ondansetron HCl (Zofran Injection) 4 mg IVPUSH Q6H PRN PRN Reason: NAUSEA AND/OR VOMITING Oxycodone HCl (Roxicodone -) 5 mg PO Q6H PRN PRN Reason: PAIN LEVEL 1-5 Pantoprazole Sodium (Protonix Iv) 40 mg IVPUSH DAILY [facility] Last Admin: 04/27/19 13:56 Dose: 40 mg Polyethylene Glycol (Miralax (For Daily Use) -) 17 gm PO DAILY [facility] Last Admin: 04/27/19 11:17 Dose: Not Given Promethazine HCl (Phenergan Injection -) 12.5 mg IVPUSH Q6H PRN PRN Reason: NAUSEA-FOR RESCUE AFTER 15 MIN Senna/Docusate Sodium (Pericolace -) 1 tablet PO HS [facility] Last Admin: 04/26/19 21:03 Dose: Not Given Ziprasidone (Geodon -) 20 mg PO DAILY [facility] Last Admin: 04/27/19 11:17 Dose: Not Given ASSESSMENT/PLAN: 58 yo F with a PMH of CAD (Cath in 2014 shows nonobstructive disease), COPD, NIDDM, CKD GERD, HTN, HLD, Schizoaffective Disorder, and Major depression who is s/p C4 corpectomy leading to wound exploration and evacuation of anterior neck hematoma. Neuro: 1. Interbody Cage (Corpectomy) 2. C3 Caudal Hemicorpectomy w/ resection of osteophytes & posterior longitudinal ligament (technically challenging) 3. C4 Corpectomy w/ resection of osteophytes & posterior longitudinal ligament (technically challenging) 4. C5 Rostral Hemicorpectomy w/ resection of osteophytes & posterior longitudinal ligament (technically challenging) 5. Anterior Instrumentation C3-C5 (technically challenging) 6. Fluroscopy 7. Microdissection 8. C3/4 Arthrodesis 9. C4/5 Arthrodesis 10. Local autograft 11. Deformity correction (mandaeism of lordosis) #1-11 POD 2 -s/p Evacuation 04/26/19. POD 1 -Decadron 10 Q4H for airway swelling and edema -Fentanyl and propofol for sedation and pain -c/w neurontin , flexeril -c/w cymbalta , ziprasidone -pain control as per surgery team Cardio: HTN, HLD, CAD -c/w diltiazem Endo: DM -BGM Pulm: COPD -intubated -c/w duonebs -pt had positive leak test -pt began having alot of coughing and failed weaning trial for extubation, will reassess tomorrow F/E/N -LR@100 mls/hr -Monitor Electrolytes -NPO DVT ppx: SCDs GIppx: protonix 40 IVP Dispo: continue ICU monitoring Visit type - Emergency Visit Emergency Visit: No - New Patient This patient is new to me today: Yes Date on this admission: 04/27/19 - Critical Care Critical Care patient: Yes Total Critical Care Time (in minutes): 38 Critical Care Statement: The care of this patient involved high complexity decision making to prevent further life threatening deterioration of the patient 's condition and/or to evaluate & treat vital organ system(s) failure or risk of failure. ATTENDING PHYSICIAN STATEMENT I saw and evaluated the patient. I reviewed the resident's note and discussed the case with the resident. I agree with the resident's findings and plan as documented. SUBJECTIVE: OBJECTIVE: ASSESSMENT AND PLAN:
[2019-04-27] MEDS: CHLORHEXIDINE GLUCONATE 4% CLEANSER FOR DECOLONIZATION TP SCH (21:04)
[2019-04-27] MEDS: SENNOSIDES/DOCUSATE COMBO (SENNA PLUS) TABLET (UD) PO SCH (21:04)
[2019-04-28] MEDS: DEXAMETHASONE SOD PHOSPHATE 10 MG/1 ML VIAL IVPUSH SCH ×3 (01:00→17:26)
[2019-04-28] MEDS: PROPOFOL 1,000,000 MCG/100 ML VIAL IVPB SCH ×3 (03:00→21:08)
[2019-04-28] MEDS: FENTANYL INJECTION 500 MCG in DEXTROSE 5%-WATER - 90 ML IVPB SCH ×2 (03:00→21:07)
[2019-04-28] MEDS ORDERED: fentaNYL CITRATE 250 MCG/5 ML VIAL ONE ×2 (03:26→09:24)
[2019-04-28] MEDS: busPIRone HCL 10 MG TABLET (FP) PO SCH ×3 (05:59→21:44)
[2019-04-28] MEDS: DOCUSATE SODIUM 100 MG CAPSULE (FP) PO SCH ×3 (05:59→21:45)
[2019-04-28 06:57] LABS: HEMATOCRIT 34.3 % (32.4-45.2); HEMOGLOBIN 11.6 GM/dL (10.7-15.3); LYMPH % 5.5 % (8-40); MCH 28.4 pg (25.7-33.7); MCHC 33.9 g/dl (32.0-36.0); MEAN CELL VOLUME 83.9 fl (80-96); MEAN PLT VOLUME 9.2 fl (7.5-11.1); MONO % 3.8 % (3.8-10.2); NEUT % 90.7 % (42.8-82.8); PLATELET COUNT 201 K/MM3 (134-434); RBC 4.09 M/mm3 (3.60-5.2); RDW 13.5 % (11.6-15.6); WHITE BLOOD COUNT 10.4 K/mm3 (4.0-10.0)
[2019-04-28 07:10] LABS: ARTERIAL BLD GAS O2 SATURATION 97.9 % (95-98); ARTERIAL BLOOD GAS BASE EXCESS 2.2 meq/l (-2-2); ARTERIAL BLOOD GAS PCO2 45.6 mmHg (35-45); ARTERIAL BLOOD GAS PO2 102 mmHg (80-100); ARTERIAL BLOOD GAS pH 7.39 (7.35-7.45)
[2019-04-28 07:20] LABS: ALBUMIN 2.4 g/dl (3.4-5.0); BILIRUBIN,TOTAL 0.4 mg/dL (0.2-1); CALCIUM 8.3 mg/dL (8.5-10.1); CREATININE 0.9 mg/dL (0.55-1.3); POTASSIUM 4.3 mmol/L (3.5-5.1); TOT PROT 5.5 g/dl (6.4-8.2)
[2019-04-28] MEDS: ALBUTEROL SO4 2.5/IPRATROPIUM 0.5 INH SOL 3 ML VIAL.NEB. NEB SCH ×4 (08:10→20:40)
--- NOTE | 2019-04-28 08:15 | PN ---
Progress Note (short form) - Note Progress Note: 59yo F s/p C4 corpectomy, hematoma evacuation and washout x 2, with uncontrolled bleeding. Pt seen and examined in ICU bed, pt continues to be intubated, but is awake and reacts to stimuli. Pt afebrile overnight, and no active bleeding overnight. Pt continues to have cervical swelling, currently on decadron. Last Vital Signs Temp Pulse Resp BP Pulse Ox 98.6 F 48 L 15 124/69 100 04/28/19 06:00 04/28/19 08:08 04/28/19 08:08 04/28/19 06:00 04/28/19 08:08 CBC, BMP 04/28/19 05:48 04/28/19 05:48 PE: Gen: A&O x3 Resp: breathing with ET tube Neck: significant swelling, dressing in place with serosanguinous drainage, dressing changed. No erythema. Problem List - Problems (1) Cervical disc disease Assessment/Plan: Plan -continue airway management per medicine ICU team, understand pt has a lot of swelling and significant COPD, consider weaning ET tube per ICU -pain management -DVT ppx Code(s): M50.90 - CERVICAL DISC DISORDER, UNSP, UNSPECIFIED CERVICAL REGION
--- NOTE | 2019-04-28 09:04 | PN ---
Progress Note, Physician - Current Medication List Current Medications: Active Medications Albuterol Sulfate (Ventolin Hfa Inhaler -) 2 puff IH Q6H PRN PRN Reason: SHORTNESS OF BREATH Albuterol/Ipratropium (Duoneb -) 1 amp NEB RQID [facility] Last Admin: 04/28/19 08:10 Dose: 1 amp Benztropine Mesylate (Cogentin -) 0.5 mg PO BID [facility] Last Admin: 04/27/19 21:04 Dose: Not Given Budesonide/Formoterol Fumarate (Symbicort 160/4.5mcg -) 1 puff IH BID [facility] Last Admin: 04/27/19 21:04 Dose: Not Given Buspirone HCl (Buspar -) 10 mg PO TID [facility] Last Admin: 04/28/19 05:59 Dose: Not Given Chlorhexidine Gluconate (Hibiclens For Decolonization -) 1 applic TP HS [facility] Last Admin: 04/27/19 21:04 Dose: 1 applic Cholecalciferol (Vitamin D3 -) 800 unit PO DAILY [facility] Last Admin: 04/27/19 11:18 Dose: Not Given Cyclobenzaprine HCl (Flexeril -) 10 mg PO BID [facility] Last Admin: 04/27/19 21:04 Dose: Not Given Dexamethasone Sodium Phosphate (Decadron Injection -) 10 mg IVPUSH Q8H-IV [facility] Last Admin: 04/28/19 01:00 Dose: 10 mg Diltiazem HCl (Cardizem Cd -) 180 mg PO DAILY [facility] Last Admin: 04/27/19 11:16 Dose: Not Given Diphenhydramine HCl (Benadryl -) 25 mg PO Q6H PRN PRN Reason: FOR ITCHING Docusate Sodium (Colace -) 100 mg PO TID [facility] Last Admin: 04/28/19 05:59 Dose: Not Given Duloxetine HCl (Cymbalta -) 60 mg PO DAILY [facility] Last Admin: 04/27/19 11:16 Dose: Not Given Folic Acid (Folic Acid -) 1 mg PO DAILY [facility] Last Admin: 04/27/19 11:17 Dose: Not Given Gabapentin (Neurontin -) 300 mg PO BID [facility] Last Admin: 04/27/19 21:04 Dose: Not Given Guaifenesin (Robitussin -) 10 ml PO Q6H PRN PRN Reason: COUGH Lactated Ringer's (Lactated Ringers Solution) 1,000 ml in 1,000 mls @ 100 mls/ hr IV ASDIR [facility] Last Admin: 04/27/19 22:46 Dose: 100 mls/hr Propofol (Diprivan -) 1,000,000 mcg in 100 mls @ 2.694 mls/hr IVPB TITR [facility]; Protocol Last Admin: 04/28/19 03:00 Dose: 25 mcg/kg/min, 13.472 mls/hr Fentanyl 500 mcg/ Dextrose 100 mls @ 0.14 mls/hr IVPB TITR [facility] Last Admin: 04/28/19 03:00 Dose: 100 mcg/hr, 20 mls/hr Morphine Sulfate (Morphine Sulfate) 4 mg IVPUSH Q3H PRN PRN Reason: PAIN LEVEL 6-10 Mupirocin (Bactroban Ointment (For Decolonization) -) 1 applic NS BID [facility] Stop: 05/01/19 21:59 Last Admin: 04/27/19 21:09 Dose: 1 applic Ondansetron HCl (Zofran Injection) 4 mg IVPUSH Q6H PRN PRN Reason: NAUSEA AND/OR VOMITING Oxycodone HCl (Roxicodone -) 5 mg PO Q6H PRN PRN Reason: PAIN LEVEL 1-5 Pantoprazole Sodium (Protonix Iv) 40 mg IVPUSH DAILY [facility] Last Admin: 04/27/19 13:56 Dose: 40 mg Polyethylene Glycol (Miralax (For Daily Use) -) 17 gm PO DAILY [facility] Last Admin: 04/27/19 11:17 Dose: Not Given Promethazine HCl (Phenergan Injection -) 12.5 mg IVPUSH Q6H PRN PRN Reason: NAUSEA-FOR RESCUE AFTER 15 MIN Senna/Docusate Sodium (Pericolace -) 1 tablet PO HS [facility] Last Admin: 04/27/19 21:04 Dose: Not Given Ziprasidone (Geodon -) 20 mg PO DAILY [facility] Last Admin: 04/27/19 11:17 Dose: Not Given - Objective Vital Signs: Vital Signs Temperature 98.6 F 04/28/19 06:00 Pulse Rate 48 L 04/28/19 08:08 Respiratory Rate 15 04/28/19 08:08 Blood Pressure 108/70 04/28/19 08:00 O2 Sat by Pulse Oximetry (%) 100 04/28/19 08:08 Cardiovascular: Yes: S1, S2 Respiratory: Yes: Mechanically Ventilated Gastrointestinal: Yes: Normal Bowel Sounds, Soft Neurological: Yes: Other (sedated) Labs: CBC, BMP 04/28/19 05:48 04/28/19 05:48 INR, PTT INR No Result Required. 04/27/19 06:10 Problem List - Problems (1) Postoperative hematoma Assessment/Plan: Operative Date: 04/26/19 Pre-Operative Diagnosis: Bleeding in neck Operation: Evacuation of hematoma, liagation of bleeding blood vessel neck Findings: bleeding vein on muscle Code(s): [id number] - (2) Cervical disc disease Assessment/Plan: Operative Date: 04/22/19 Pre-Operative Diagnosis: Cervical stenosis w/ radiculopathy Operation: C4 corpectomy, PEEK cage, anterior plate Post-Operative Diagnosis: Same as Pre-op Surgeon: Yehuda Corona Drum Sprayer: Dain López Anesthesiologist/LOOPING INSPECTOR: Jane Almanza per NS Code(s): M50.90 - CERVICAL DISC DISORDER, UNSP, UNSPECIFIED CERVICAL REGION (3) Diabetes Assessment/Plan: bgm Code(s): E11.9 - TYPE 2 DIABETES MELLITUS WITHOUT COMPLICATIONS (4) HTN (hypertension) Assessment/Plan: monitor Code(s): I10 - ESSENTIAL (PRIMARY) HYPERTENSION (5) Schizoaffective disorder Code(s): F25.9 - SCHIZOAFFECTIVE DISORDER, UNSPECIFIED (6) COPD (chronic obstructive pulmonary disease) Assessment/Plan: nebs intubated pulm on case weaning per icu team Code(s): J44.9 - CHRONIC OBSTRUCTIVE PULMONARY DISEASE, UNSPECIFIED (7) Respiratory failure Assessment/Plan: as above Code(s): J96.90 - RESPIRATORY FAILURE, UNSP, UNSP W HYPOXIA OR HYPERCAPNIA
[2019-04-28] MEDS: PANTOPRAZOLE SODIUM 40 MG VIAL IVPUSH SCH (10:09)
[2019-04-28] MEDS: MUPIROCIN 2% TOPICAL OINTMENT FOR DECOLONIZATION NS SCH ×2 (10:18→21:44)
[2019-04-28] MEDS: BENZTROPINE MESYLATE 0.5 MG TABLET (FP) PO SCH ×2 (10:20→21:45)
[2019-04-28] MEDS: DULoxetine HCL 30 MG CAPSULE.DR PO SCH (10:21)
[2019-04-28] MEDS: CYCLOBENZAPRINE HCL 10 MG TABLET (FP) PO SCH ×2 (10:21→21:43)
[2019-04-28] MEDS: POLYETHYLENE GLYCOL 3350 119 GM BTL PO SCH (10:52)
[2019-04-28] MEDS: FOLIC ACID 1 MG TABLET (FP) PO SCH (10:52)
[2019-04-28] MEDS: ZIPRASIDONE 20 MG CAPSULE PO SCH (10:52)
[2019-04-28] MEDS: GABAPENTIN 100 MG CAPSULE (FP) PO SCH ×2 (10:52→21:43)
[2019-04-28] MEDS: CHOLECALCIFEROL (VIT D3) 400 UNIT (10 MCG) TABLET PO SCH (10:53)
[2019-04-28] MEDS: BUDESONIDE/FORMETEROL FUMARATE 160/4.5 mcg INHALER IH SCH ×2 (10:53→23:21)
--- NOTE | 2019-04-28 11:58 | PN ---
Teaching Attending Note Name of Resident: Bertin Huang ATTENDING PHYSICIAN STATEMENT I saw and evaluated the patient. I reviewed the resident's note and discussed the case with the resident. I agree with the resident's findings and plan as documented. SUBJECTIVE: Pt seen and examined in the ICU. Intubated, awake off sedation. Following commands, tolerated CPAP/PS trials and subsequently extubated during rounds. OBJECTIVE: Vital Signs Period Temp Pulse Resp BP Sys/Mcdaniel Pulse Ox Last 24 Hr 97.9 F-98.6 F 44-75 12-19 101-124/52-70 99-100 Intake & Output 04/25/19 04/26/19 04/27/19 04/28/19 23:59 23:59 23:59 23:59 Intake Total 600 3712.1 3246.8 1608 Output Total 1360 980 200 Balance 600 2352.1 2266.8 1408 Gen: extubated Heart: RRR Lung: decreased breath sounds at the bases Abd: soft, nontender Ext: no edema CBC, BMP 04/28/19 05:48 04/28/19 05:48 Active Medications Albuterol Sulfate (Ventolin Hfa Inhaler -) 2 puff IH Q6H PRN PRN Reason: SHORTNESS OF BREATH Albuterol/Ipratropium (Duoneb -) 1 amp NEB RQID [facility] Last Admin: 04/28/19 08:10 Dose: 1 amp Benztropine Mesylate (Cogentin -) 0.5 mg PO BID [facility] Last Admin: 04/28/19 10:20 Dose: Not Given Budesonide/Formoterol Fumarate (Symbicort 160/4.5mcg -) 1 puff IH BID [facility] Last Admin: 04/28/19 10:53 Dose: Not Given Buspirone HCl (Buspar -) 10 mg PO TID [facility] Last Admin: 04/28/19 05:59 Dose: Not Given Chlorhexidine Gluconate (Hibiclens For Decolonization -) 1 applic TP HS [facility] Last Admin: 04/27/19 21:04 Dose: 1 applic Cholecalciferol (Vitamin D3 -) 800 unit PO DAILY [facility] Last Admin: 04/28/19 10:53 Dose: Not Given Cyclobenzaprine HCl (Flexeril -) 10 mg PO BID [facility] Last Admin: 04/28/19 10:21 Dose: Not Given Dexamethasone Sodium Phosphate (Decadron Injection -) 6 mg IVPUSH Q8H-IV [facility] Diltiazem HCl (Cardizem Cd -) 180 mg PO DAILY [facility] Last Admin: 04/28/19 10:20 Dose: Not Given Diphenhydramine HCl (Benadryl -) 25 mg PO Q6H PRN PRN Reason: FOR ITCHING Docusate Sodium (Colace -) 100 mg PO TID [facility] Last Admin: 04/28/19 05:59 Dose: Not Given Duloxetine HCl (Cymbalta -) 60 mg PO DAILY [facility] Last Admin: 04/28/19 10:21 Dose: Not Given Folic Acid (Folic Acid -) 1 mg PO DAILY [facility] Last Admin: 04/28/19 10:52 Dose: Not Given Gabapentin (Neurontin -) 300 mg PO BID [facility] Last Admin: 04/28/19 10:52 Dose: Not Given Guaifenesin (Robitussin -) 10 ml PO Q6H PRN PRN Reason: COUGH Lactated Ringer's (Lactated Ringers Solution) 1,000 ml in 1,000 mls @ 100 mls/ hr IV ASDIR [facility] Last Admin: 04/27/19 22:46 Dose: 100 mls/hr Propofol (Diprivan -) 1,000,000 mcg in 100 mls @ 2.694 mls/hr IVPB TITR [facility]; Protocol Last Titration: 04/28/19 10:30 Dose: 0 mcg/kg/min, 0 mls/hr Fentanyl 500 mcg/ Dextrose 100 mls @ 0.14 mls/hr IVPB TITR [facility] Last Titration: 04/28/19 10:30 Dose: 0 mcg/hr, 0 mls/hr Morphine Sulfate (Morphine Sulfate) 4 mg IVPUSH Q3H PRN PRN Reason: PAIN LEVEL 6-10 Mupirocin (Bactroban Ointment (For Decolonization) -) 1 applic NS BID [facility] Stop: 05/01/19 21:59 Last Admin: 04/28/19 10:18 Dose: 1 applic Ondansetron HCl (Zofran Injection) 4 mg IVPUSH Q6H PRN PRN Reason: NAUSEA AND/OR VOMITING Oxycodone HCl (Roxicodone -) 5 mg PO Q6H PRN PRN Reason: PAIN LEVEL 1-5 Pantoprazole Sodium (Protonix Iv) 40 mg IVPUSH DAILY [facility] Last Admin: 04/28/19 10:09 Dose: 40 mg Polyethylene Glycol (Miralax (For Daily Use) -) 17 gm PO DAILY [facility] Last Admin: 04/28/19 10:52 Dose: Not Given Promethazine HCl (Phenergan Injection -) 12.5 mg IVPUSH Q6H PRN PRN Reason: NAUSEA-FOR RESCUE AFTER 15 MIN Senna/Docusate Sodium (Pericolace -) 1 tablet PO HS [facility] Last Admin: 04/27/19 21:04 Dose: Not Given Ziprasidone (Geodon -) 20 mg PO DAILY [facility] Last Admin: 04/28/19 10:52 Dose: Not Given ASSESSMENT AND PLAN: Cervical Stenosis with radiculopathy s/p C4 corpectomy, PEEK cage, anterior plate Post op Hematoma s/p Hematoma evacuation/Ligation of bleeding vessel Acute Respiratory Failure COPD CAD DM HTN Schizoaffective Disorder - pt extubated - inhaled bronchodilators - monitor H/H - taper decadron - cough suppressants - DVT prophylaxis - continue ICU monitoring critical care time spent in reviewing chart, evaluating patient and formulating plan 35 min
--- NOTE | 2019-04-28 14:05 | PN ---
Physical Exam: SUBJECTIVE: Patient seen and examined at bedside in the ICU. On rounds, patient is intubated and awake off sedation. Able to follow instructions. Patient tolerated CPAP/PS trials well. Patient extubated. OBJECTIVE: Vital Signs Period Temp Pulse Resp BP Sys/Mcdaniel Pulse Ox Last 24 Hr 97.9 F-98.6 F 44-75 12-19 101-124/52-70 98-100 GENERAL: The patient is awake, alert, in no acute distress. HEAD: Normal with no signs of trauma. EYES: PERRL, extraocular movements intact, sclera anicteric, conjunctiva clear. No ptosis. ENT: Ears normal, nares patent, oropharynx clear without exudates, moist mucous membranes. NECK: Trachea midline, full range of motion, supple. LUNGS: Breath sounds equal, clear to auscultation bilaterally, no wheezes, no crackles, no accessory muscle use. HEART: Regular rate and rhythm, S1, S2 without murmur, rub or gallop. ABDOMEN: Soft, nontender, nondistended, no guarding, no rebound, no masses. EXTREMITIES: 2+ pulses, warm, well-perfused, no edema. NEUROLOGICAL: Cranial nerves II through XII grossly intact. PSYCH: Unable to assess. SKIN: Warm, dry, normal turgor, no rashes or lesions noted Laboratory Results - last 24 hr 04/26/19 04/27/19 04/27/19 07:45 17:56 21:06 WBC RBC Hgb Hct MCV MCH MCHC RDW Plt Count MPV Absolute Neuts (auto) Neutrophils % Lymphocytes % Monocytes % Eosinophils % Basophils % Nucleated RBC % Anticoagulation Therapy Puncture Site ABG pH ABG pCO2 at Pt Temp ABG pO2 at Pt Temp ABG HCO3 ABG O2 Sat (Measured) ABG O2 Content ABG Base Excess Christoph Test O2 Delivery Device Oxygen Flow Rate Vent Mode Vent Rate Mechanical Rate PEEP Pressure Support Vent Sodium Potassium Chloride Carbon Dioxide Anion Gap BUN Creatinine Est GFR (CKD-EPI)AfAm Est GFR (CKD-EPI)NonAf POC Glucometer 206 216 Random Glucose Calcium Phosphorus Magnesium Total Bilirubin AST ALT Alkaline Phosphatase Total Protein Albumin Blood Type O POSITIVE Antibody Screen Negative Crossmatch See Detail 04/28/19 04/28/19 04/28/19 05:48 05:48 06:19 WBC 10.4 H RBC 4.09 Hgb 11.6 Hct 34.3 MCV 83.9 MCH 28.4 MCHC 33.9 RDW 13.5 Plt Count 201 MPV 9.2 Absolute Neuts (auto) 9.4 H Neutrophils % 90.7 H Lymphocytes % 5.5 L D Monocytes % 3.8 D Eosinophils % 0.0 Basophils % 0.0 Nucleated RBC % 0 Anticoagulation Therapy Puncture Site ABG pH ABG pCO2 at Pt Temp ABG pO2 at Pt Temp ABG HCO3 ABG O2 Sat (Measured) ABG O2 Content ABG Base Excess Christoph Test O2 Delivery Device Oxygen Flow Rate Vent Mode Vent Rate Mechanical Rate PEEP Pressure Support Vent Sodium 138 Potassium 4.3 Chloride 103 Carbon Dioxide 27 Anion Gap 7 L BUN 25.0 H Creatinine 0.9 Est GFR (CKD-EPI)AfAm 79.98 Est GFR (CKD-EPI)NonAf 69.01 POC Glucometer 169 Random Glucose 192 H Calcium 8.3 L Phosphorus 4.0 Magnesium 2.0 Total Bilirubin 0.4 AST 8 L ALT 14 Alkaline Phosphatase 91 Total Protein 5.5 L Albumin 2.4 L Blood Type Antibody Screen Crossmatch 04/28/19 04/28/19 06:50 11:29 WBC RBC Hgb Hct MCV MCH MCHC RDW Plt Count MPV Absolute Neuts (auto) Neutrophils % Lymphocytes % Monocytes % Eosinophils % Basophils % Nucleated RBC % Anticoagulation Therapy No Result Required. Puncture Site Right radial ABG pH 7.39 ABG pCO2 at Pt Temp 45.6 H ABG pO2 at Pt Temp 102 H ABG HCO3 27.0 ABG O2 Sat (Measured) 97.9 ABG O2 Content 15.4 ABG Base Excess 2.2 H Christoph Test No Result Required. O2 Delivery Device Mech vent Oxygen Flow Rate 40 Vent Mode A/c Vent Rate 14 Mechanical Rate Yes PEEP 5.0 Pressure Support Vent 450 Sodium Potassium Chloride Carbon Dioxide Anion Gap BUN Creatinine Est GFR (CKD-EPI)AfAm Est GFR (CKD-EPI)NonAf POC Glucometer 176 Random Glucose Calcium Phosphorus Magnesium Total Bilirubin AST ALT Alkaline Phosphatase Total Protein Albumin Blood Type Antibody Screen Crossmatch Active Medications Generic Name Dose Route Start Last Admin Trade Name Freq PRN Reason Stop Dose Admin Albuterol Sulfate 2 puff 04/26/19 16:34 Ventolin Hfa Inhaler - IH Q6H PRN SHORTNESS OF BREATH Albuterol/Ipratropium 1 amp 04/27/19 12:00 04/28/19 12:22 Duoneb - NEB 1 amp RQID [facility] Administration Benztropine Mesylate 0.5 mg 04/26/19 22:00 04/28/19 10:20 Cogentin - PO Not Given BID [facility] Budesonide/Formoterol Fumarate 1 puff 04/26/19 22:00 04/28/19 10:53 Symbicort 160/4.5mcg - IH Not Given BID [facility] Buspirone HCl 10 mg 04/26/19 22:00 04/28/19 05:59 Buspar - PO Not Given TID [facility] Chlorhexidine Gluconate 1 applic 04/26/19 22:00 04/27/19 21:04 Hibiclens For Decolonization - TP 1 applic HS [facility] Administration Cholecalciferol 800 unit 04/27/19 10:00 04/28/19 10:53 Vitamin D3 - PO Not Given DAILY [facility] Cyclobenzaprine HCl 10 mg 04/26/19 22:00 04/28/19 10:21 Flexeril - PO Not Given BID [facility] Dexamethasone Sodium Phosphate 6 mg 04/28/19 11:11 Decadron Injection - IVPUSH Q8H-IV [facility] Diltiazem HCl 180 mg 04/27/19 10:00 04/28/19 10:20 Cardizem Cd - PO Not Given DAILY [facility] Diphenhydramine HCl 25 mg 04/26/19 16:34 Benadryl - PO Q6H PRN FOR ITCHING Docusate Sodium 100 mg 04/26/19 22:00 04/28/19 05:59 Colace - PO Not Given TID [facility] Duloxetine HCl 60 mg 04/27/19 10:00 04/28/19 10:21 Cymbalta - PO Not Given DAILY [facility] Folic Acid 1 mg 04/27/19 10:00 04/28/19 10:52 Folic Acid - PO Not Given DAILY [facility] Gabapentin 300 mg 04/26/19 22:00 04/28/19 10:52 Neurontin - PO Not Given BID [facility] Guaifenesin 10 ml 04/26/19 16:34 Robitussin - PO Q6H PRN COUGH Lactated Ringer's 1,000 ml in 1,000 mls @ 100 mls/hr 04/26/19 16:34 04/27/19 22:46 Lactated Ringers Solution IV 100 mls/hr ASDIR [facility] Administration Propofol 1,000,000 mcg in 100 mls @ 2.694 mls/hr 04/26/19 16:34 04/28/19 10: 30 Diprivan - IVPB 0 mcg/kg/min TITR [facility] 0 mls/hr Titration Protocol 5 MCG/KG/MIN Fentanyl 500 mcg/ Dextrose 100 mls @ 0.14 mls/hr 04/27/19 14:30 04/28/19 10: 30 IVPB 0 mcg/hr TITR [facility] 0 mls/hr Titration 0.7 MCG/HR Morphine Sulfate 4 mg 04/26/19 16:34 Morphine Sulfate IVPUSH Q3H PRN PAIN LEVEL 6-10 Mupirocin 1 applic 04/26/19 22:00 04/28/19 10:18 Bactroban Ointment (For Decolonization) - NS 05/01/19 21:59 1 applic BID [facility] Administration Ondansetron HCl 4 mg 04/26/19 16:34 Zofran Injection IVPUSH Q6H PRN NAUSEA AND/OR VOMITING Oxycodone HCl 5 mg 04/26/19 16:34 Roxicodone - PO Q6H PRN PAIN LEVEL 1-5 Pantoprazole Sodium 40 mg 04/27/19 12:15 04/28/19 10:09 Protonix Iv IVPUSH 40 mg DAILY [facility] Administration Polyethylene Glycol 17 gm 04/27/19 10:00 04/28/19 10:52 Miralax (For Daily Use) - PO Not Given DAILY [facility] Promethazine HCl 12.5 mg 04/26/19 16:34 Phenergan Injection - IVPUSH Q6H PRN NAUSEA-FOR RESCUE AFTER 15 MIN Senna/Docusate Sodium 1 tablet 04/26/19 22:00 04/27/19 21:04 Pericolace - PO Not Given HS [facility] Ziprasidone 20 mg 04/27/19 10:00 04/28/19 10:52 Geodon - PO Not Given DAILY [facility] ASSESSMENT/PLAN: 58 yo F with a PMH of CAD (Cath in 2015 shows nonobstructive disease), COPD, NIDDM, CKD GERD, HTN, HLD, Schizoaffective Disorder, and Major depression who is s/p C4 corpectomy leading to wound exploration and evacuation of anterior neck hematoma. Neuro: 1. Interbody Cage (Corpectomy) 2. C3 Caudal Hemicorpectomy w/ resection of osteophytes & posterior longitudinal ligament (technically challenging) 3. C4 Corpectomy w/ resection of osteophytes & posterior longitudinal ligament (technically challenging) 4. C5 Rostral Hemicorpectomy w/ resection of osteophytes & posterior longitudinal ligament (technically challenging) 5. Anterior Instrumentation C3-C5 (technically challenging) 6. Fluroscopy 7. Microdissection 8. C3/4 Arthrodesis 9. C4/5 Arthrodesis 10. Local autograft 11. Deformity correction (jewish of lordosis) #1-11 POD 3 -s/p Evacuation 04/26/19. POD 2 -taper Decadron -Fentanyl and propofol for sedation and pain -c/w neurontin , flexeril -c/w cymbalta , ziprasidone -pain control as per surgery team Cardio: HTN, HLD, CAD -c/w diltiazem Endo: DM -BGM Pulm: COPD -extubated -c/w duonebs -pt had positive leak test -cough suppresants PRN F/E/N -LR@100 mls/hr -Monitor Electrolytes -NPO -monitor H/H DVT ppx: SCDs GIppx: protonix 40 IVP Dispo: continue ICU monitoring Visit type - Emergency Visit Emergency Visit: No - New Patient This patient is new to me today: No - Critical Care Critical Care patient: Yes Total Critical Care Time (in minutes): 35 Critical Care Statement: The care of this patient involved high complexity decision making to prevent further life threatening deterioration of the patient 's condition and/or to evaluate & treat vital organ system(s) failure or risk of failure. ATTENDING PHYSICIAN STATEMENT I saw and evaluated the patient. I reviewed the resident's note and discussed the case with the resident. I agree with the resident's findings and plan as documented. SUBJECTIVE: OBJECTIVE: ASSESSMENT AND PLAN:
[2019-04-28] MEDS: LACTATED RINGERS SOLUTION 1,000 ML/1,000 ML INFUS.BAG IV SCH (18:41)
[2019-04-28] MEDS ORDERED: PT OWN MED DRAWER 7, Y5N ONE ×2 (21:30→22:09)
[2019-04-28] MEDS: SENNOSIDES/DOCUSATE COMBO (SENNA PLUS) TABLET (UD) PO SCH (21:43)
[2019-04-28] MEDS: CHLORHEXIDINE GLUCONATE 4% CLEANSER FOR DECOLONIZATION TP SCH (21:46)
[2019-04-28] MEDS ORDERED: ACETAMINOPHEN 1000 MG/100 ML VIAL (NON FORMULARY) IVPB ONE (21:52)
[2019-04-29] MEDS: DEXAMETHASONE SOD PHOSPHATE 10 MG/1 ML VIAL IVPUSH SCH ×3 (01:03→17:08)
[2019-04-29 05:53] LABS: ARTERIAL BLD GAS O2 SATURATION 96.4 % (95-98); ARTERIAL BLOOD GAS BASE EXCESS 2.9 meq/l (-2-2); ARTERIAL BLOOD GAS PO2 80.7 mmHg (80-100); ARTERIAL BLOOD GAS pH 7.45 (7.35-7.45)
[2019-04-29 05:56] LABS: ALLENS TEST POSITIVE
[2019-04-29] MEDS ORDERED: PT OWN MED DRAWER 7, Y5N ONE ×5 (06:06→20:51)
[2019-04-29] MEDS: DOCUSATE SODIUM 100 MG CAPSULE (FP) PO SCH ×3 (06:07→21:27)
[2019-04-29] MEDS: busPIRone HCL 10 MG TABLET (FP) PO SCH ×3 (06:07→21:28)
[2019-04-29 07:22] LABS: BASO % 0.1 % (0-2.0); HEMATOCRIT 34.1 % (32.4-45.2); HEMOGLOBIN 11.3 GM/dL (10.7-15.3); LYMPH % 3.1 % (8-40); MCH 27.8 pg (25.7-33.7); MCHC 33.1 g/dl (32.0-36.0); MEAN CELL VOLUME 83.8 fl (80-96); MEAN PLT VOLUME 9.2 fl (7.5-11.1); MONO % 3.4 % (3.8-10.2); NEUT % 93.4 % (42.8-82.8); PLATELET COUNT 202 K/MM3 (134-434); RBC 4.07 M/mm3 (3.60-5.2); RDW 13.9 % (11.6-15.6); WHITE BLOOD COUNT 11.7 K/mm3 (4.0-10.0)
[2019-04-29 07:52] LABS: ALBUMIN 2.7 g/dl (3.4-5.0); BILIRUBIN,TOTAL 0.6 mg/dL (0.2-1); BLOOD UREA NITROGEN 29.8 mg/dL (7-18); CALCIUM 8.4 mg/dL (8.5-10.1); MAGNESIUM 2.1 mg/dL (1.8-2.4); PHOSPHOROUS 3.1 mg/dL (2.5-4.9); POTASSIUM 4.2 mmol/L (3.5-5.1); TOT PROT 5.9 g/dl (6.4-8.2)
[2019-04-29] MEDS: ALBUTEROL SO4 2.5/IPRATROPIUM 0.5 INH SOL 3 ML VIAL.NEB. NEB SCH ×4 (08:35→20:17)
--- NOTE | 2019-04-29 08:50 | PN ---
Physical Exam: SUBJECTIVE: Patient seen and examined at bedside. pt is in good spirits and is asking when she can go home. she denies pain or sob. she denies palpitations, dizziness. pt states she feels some tightness around her neck bandage but that its not interfering with her breathing OBJECTIVE: Vital Signs Period Temp Pulse Resp BP Sys/Mcdaniel Pulse Ox Last 24 Hr 97.8 F-98 F 53-84 12-20 108-146/56-82 98-100 GENERAL: The patient is awake, alert, and fully oriented, in no acute distress. LUNGS: Breath sounds equal,b/l wheezes, no crackles, no accessory muscle use. HEART: Regular rate and rhythm, S1, S2 ABDOMEN: Soft, nontender, nondistended, normoactive bowel sounds, no guarding EXTREMITIES: 2+ pulses, warm, well-perfused, no edema. SKIN: Warm, dry, normal turgor, no rashes or lesions noted CBC, BMP 04/29/19 06:15 04/29/19 06:15 ABG Results ABG pH 7.45 (7.35-7.45) 04/29/19 05:45 ABG pCO2 at Pt Temp 39.0 mmHg (35-45) 04/29/19 05:45 ABG pO2 at Pt Temp 80.7 mmHg (80-100) 04/29/19 05:45 ABG HCO3 26.5 mmol/L (22-27) 04/29/19 05:45 ABG O2 Sat (Measured) 96.4 % (95-98) 04/29/19 05:45 ABG O2 Content 14.9 % vol 04/29/19 05:45 ABG Base Excess 2.9 meq/l (-2-2) H 04/29/19 05:45 Current Medications Albuterol Sulfate (Ventolin Hfa Inhaler -) 2 puff IH Q6H PRN PRN Reason: SHORTNESS OF BREATH Albuterol/Ipratropium (Duoneb -) 1 amp NEB RQID [facility] Last Admin: 04/29/19 08:35 Dose: 1 amp Benztropine Mesylate (Cogentin -) 0.5 mg PO BID [facility] Last Admin: 04/28/19 21:45 Dose: 0.5 mg Budesonide/Formoterol Fumarate (Symbicort 160/4.5mcg -) 1 puff IH BID [facility] Last Admin: 04/28/19 23:21 Dose: 1 puff Buspirone HCl (Buspar -) 10 mg PO TID [facility] Last Admin: 04/29/19 06:07 Dose: 10 mg Chlorhexidine Gluconate (Hibiclens For Decolonization -) 1 applic TP HS [facility] Last Admin: 04/28/19 21:46 Dose: 1 applic Cholecalciferol (Vitamin D3 -) 800 unit PO DAILY [facility] Last Admin: 04/28/19 10:53 Dose: Not Given Cyclobenzaprine HCl (Flexeril -) 10 mg PO BID [facility] Last Admin: 04/28/19 21:43 Dose: 10 mg Dexamethasone Sodium Phosphate (Decadron Injection -) 6 mg IVPUSH Q8H-IV [facility] Last Admin: 04/29/19 01:03 Dose: 6 mg Diltiazem HCl (Cardizem Cd -) 180 mg PO DAILY [facility] Last Admin: 04/28/19 10:20 Dose: Not Given Diphenhydramine HCl (Benadryl -) 25 mg PO Q6H PRN PRN Reason: FOR ITCHING Docusate Sodium (Colace -) 100 mg PO TID [facility] Last Admin: 04/29/19 06:07 Dose: 100 mg Duloxetine HCl (Cymbalta -) 60 mg PO DAILY [facility] Last Admin: 04/28/19 10:21 Dose: Not Given Folic Acid (Folic Acid -) 1 mg PO DAILY [facility] Last Admin: 04/28/19 10:52 Dose: Not Given Gabapentin (Neurontin -) 300 mg PO BID [facility] Last Admin: 04/28/19 21:43 Dose: 300 mg Guaifenesin (Robitussin -) 10 ml PO Q6H PRN PRN Reason: COUGH Morphine Sulfate (Morphine Sulfate) 4 mg IVPUSH Q3H PRN PRN Reason: PAIN LEVEL 6-10 Mupirocin (Bactroban Ointment (For Decolonization) -) 1 applic NS BID [facility] Stop: 05/01/19 21:59 Last Admin: 04/28/19 21:44 Dose: 1 applic Ondansetron HCl (Zofran Injection) 4 mg IVPUSH Q6H PRN PRN Reason: NAUSEA AND/OR VOMITING Oxycodone HCl (Roxicodone -) 5 mg PO Q6H PRN PRN Reason: PAIN LEVEL 1-5 Pantoprazole Sodium (Protonix Iv) 40 mg IVPUSH DAILY [facility] Last Admin: 04/28/19 10:09 Dose: 40 mg Polyethylene Glycol (Miralax (For Daily Use) -) 17 gm PO DAILY [facility] Last Admin: 04/28/19 10:52 Dose: Not Given Promethazine HCl (Phenergan Injection -) 12.5 mg IVPUSH Q6H PRN PRN Reason: NAUSEA-FOR RESCUE AFTER 15 MIN Senna/Docusate Sodium (Pericolace -) 1 tablet PO HS [facility] Last Admin: 04/28/19 21:43 Dose: 1 tablet Ziprasidone (Geodon -) 20 mg PO DAILY [facility] Last Admin: 04/28/19 10:52 Dose: Not Given ASSESSMENT/PLAN: 58 yo F with a PMH of CAD (Cath in 2014 shows nonobstructive disease), COPD, NIDDM, CKD GERD, HTN, HLD, Schizoaffective Disorder, and Major depression who is s/p C4 corpectomy leading to wound exploration and evacuation of anterior neck hematoma. Neuro: 1. Interbody Cage (Corpectomy) 2. C3 Caudal Hemicorpectomy w/ resection of osteophytes & posterior longitudinal ligament (technically challenging) 3. C4 Corpectomy w/ resection of osteophytes & posterior longitudinal ligament (technically challenging) 4. C5 Rostral Hemicorpectomy w/ resection of osteophytes & posterior longitudinal ligament (technically challenging) 5. Anterior Instrumentation C3-C5 (technically challenging) 6. Fluroscopy 7. Microdissection 8. C3/4 Arthrodesis 9. C4/5 Arthrodesis 10. Local autograft 11. Deformity correction ([place] of lordosis) #1-11 POD 4 -s/p Evacuation 04/26/19. POD 3 Cardio: HTN, HLD, CAD -c/w diltiazem Endo: DM -BGM, ISS Pulm: COPD -extubated, saturating well on NC -c/w duonebs, ventolin -cough suppressants PRN -c/w decadron taper -c/w Symbicort Psych: Schizoaffective Disorder, Major depression -continue cymbalta , ziprasidone as prescribed F/E/N -Monitor Electrolytes -soft diet DVT ppx: SCDs GIppx: protonix 40 IVP daily -PT , eval for rehab Dispo: transfer to medicine Visit type - Emergency Visit Emergency Visit: No - New Patient This patient is new to me today: No - Critical Care Critical Care patient: Yes Total Critical Care Time (in minutes): 36 Critical Care Statement: The care of this patient involved high complexity decision making to prevent further life threatening deterioration of the patient 's condition and/or to evaluate & treat vital organ system(s) failure or risk of failure. ATTENDING PHYSICIAN STATEMENT I saw and evaluated the patient. I reviewed the resident's note and discussed the case with the resident. I agree with the resident's findings and plan as documented. SUBJECTIVE: OBJECTIVE: ASSESSMENT AND PLAN:
--- NOTE | 2019-04-29 09:37 | PN ---
Progress Note, Physician Chief Complaint: AWAKE ALERT EXTUBATED ON NC 2L TOLERATING BREAKFAST NO DYSPHAGIA +BM AND URINATION - Current Medication List Current Medications: Active Medications Albuterol Sulfate (Ventolin Hfa Inhaler -) 2 puff IH Q6H PRN PRN Reason: SHORTNESS OF BREATH Albuterol/Ipratropium (Duoneb -) 1 amp NEB RQID [facility] Last Admin: 04/29/19 08:35 Dose: 1 amp Benztropine Mesylate (Cogentin -) 0.5 mg PO BID [facility] Last Admin: 04/28/19 21:45 Dose: 0.5 mg Budesonide/Formoterol Fumarate (Symbicort 160/4.5mcg -) 1 puff IH BID [facility] Last Admin: 04/28/19 23:21 Dose: 1 puff Buspirone HCl (Buspar -) 10 mg PO TID [facility] Last Admin: 04/29/19 06:07 Dose: 10 mg Chlorhexidine Gluconate (Hibiclens For Decolonization -) 1 applic TP HS [facility] Last Admin: 04/28/19 21:46 Dose: 1 applic Cholecalciferol (Vitamin D3 -) 800 unit PO DAILY [facility] Last Admin: 04/28/19 10:53 Dose: Not Given Cyclobenzaprine HCl (Flexeril -) 10 mg PO BID [facility] Last Admin: 04/28/19 21:43 Dose: 10 mg Dexamethasone Sodium Phosphate (Decadron Injection -) 6 mg IVPUSH Q8H-IV [facility] Last Admin: 04/29/19 01:03 Dose: 6 mg Diltiazem HCl (Cardizem Cd -) 180 mg PO DAILY [facility] Last Admin: 04/28/19 10:20 Dose: Not Given Diphenhydramine HCl (Benadryl -) 25 mg PO Q6H PRN PRN Reason: FOR ITCHING Docusate Sodium (Colace -) 100 mg PO TID [facility] Last Admin: 04/29/19 06:07 Dose: 100 mg Duloxetine HCl (Cymbalta -) 60 mg PO DAILY [facility] Last Admin: 04/28/19 10:21 Dose: Not Given Folic Acid (Folic Acid -) 1 mg PO DAILY [facility] Last Admin: 04/28/19 10:52 Dose: Not Given Gabapentin (Neurontin -) 300 mg PO BID [facility] Last Admin: 04/28/19 21:43 Dose: 300 mg Guaifenesin (Robitussin -) 10 ml PO Q6H PRN PRN Reason: COUGH Morphine Sulfate (Morphine Sulfate) 4 mg IVPUSH Q3H PRN PRN Reason: PAIN LEVEL 6-10 Mupirocin (Bactroban Ointment (For Decolonization) -) 1 applic NS BID [facility] Stop: 05/01/19 21:59 Last Admin: 04/28/19 21:44 Dose: 1 applic Ondansetron HCl (Zofran Injection) 4 mg IVPUSH Q6H PRN PRN Reason: NAUSEA AND/OR VOMITING Oxycodone HCl (Roxicodone -) 5 mg PO Q6H PRN PRN Reason: PAIN LEVEL 1-5 Pantoprazole Sodium (Protonix Iv) 40 mg IVPUSH DAILY [facility] Last Admin: 04/28/19 10:09 Dose: 40 mg Polyethylene Glycol (Miralax (For Daily Use) -) 17 gm PO DAILY [facility] Last Admin: 04/28/19 10:52 Dose: Not Given Promethazine HCl (Phenergan Injection -) 12.5 mg IVPUSH Q6H PRN PRN Reason: NAUSEA-FOR RESCUE AFTER 15 MIN Senna/Docusate Sodium (Pericolace -) 1 tablet PO HS [facility] Last Admin: 04/28/19 21:43 Dose: 1 tablet Ziprasidone (Geodon -) 20 mg PO DAILY [facility] Last Admin: 04/28/19 10:52 Dose: Not Given - Objective Vital Signs: Vital Signs Temperature 97.9 F 04/29/19 08:00 Pulse Rate 65 04/29/19 08:00 Respiratory Rate 20 04/29/19 09:00 Blood Pressure 126/81 04/29/19 08:00 O2 Sat by Pulse Oximetry (%) 98 04/29/19 09:00 Constitutional: Yes: No Distress Neck: Yes: Other (SWEELING WITH DRY DRESSING) Cardiovascular: Yes: Regular Rate and Rhythm Respiratory: Yes: Diminished, On Nasal O2 Gastrointestinal: Yes: Soft, Abdomen, Obese Genitourinary: Yes: Incontinence Musculoskeletal: Yes: Muscle Weakness Edema: Yes Integumentary: Yes: Other Wound/Incision: Yes: Dressing Dry and Intact Neurological: Yes: Pre-Existing Deficit Psychiatric: Yes: Other Labs: CBC, BMP 04/29/19 06:15 04/29/19 06:15 INR, PTT INR No Result Required. 04/27/19 06:10 Problem List - Problems (1) H/O tobacco use, presenting hazards to health Code(s): Z87.891 - PERSONAL HISTORY OF NICOTINE DEPENDENCE (2) Cervical spine disease Code(s): M48.9 - SPONDYLOPATHY, UNSPECIFIED (3) COPD (chronic obstructive pulmonary disease) Code(s): J44.9 - CHRONIC OBSTRUCTIVE PULMONARY DISEASE, UNSPECIFIED (4) Cervical disc disease Code(s): M50.90 - CERVICAL DISC DISORDER, UNSP, UNSPECIFIED CERVICAL REGION (5) Diabetes Code(s): E11.9 - TYPE 2 DIABETES MELLITUS WITHOUT COMPLICATIONS (6) Anemia Code(s): D64.9 - ANEMIA, UNSPECIFIED (7) HTN (hypertension) Code(s): I10 - ESSENTIAL (PRIMARY) HYPERTENSION (8) Schizoaffective disorder Code(s): F25.9 - SCHIZOAFFECTIVE DISORDER, UNSPECIFIED Assessment/Plan CAN TRANSFER TO MED-SURG FLOOR PT EVAL OOB TO CHAIR MAY BENEFIT FROM SNF STEROID TAPER 02 SUPPORT/[facility] NEUROSURGERY FOLLOW UP FOR C-SPINE SURGERY DVT PROPHYLAXIS
[2019-04-29] MEDS: PANTOPRAZOLE SODIUM 40 MG VIAL IVPUSH SCH (10:14)
[2019-04-29] MEDS: ZIPRASIDONE 20 MG CAPSULE PO SCH (10:15)
[2019-04-29] MEDS: FOLIC ACID 1 MG TABLET (FP) PO SCH (10:15)
[2019-04-29] MEDS: CYCLOBENZAPRINE HCL 10 MG TABLET (FP) PO SCH ×2 (10:15→21:27)
[2019-04-29] MEDS: GABAPENTIN 100 MG CAPSULE (FP) PO SCH ×2 (10:15→21:27)
[2019-04-29] MEDS: CHOLECALCIFEROL (VIT D3) 400 UNIT (10 MCG) TABLET PO SCH (10:16)
[2019-04-29] MEDS: DULoxetine HCL 30 MG CAPSULE.DR PO SCH (10:16)
[2019-04-29] MEDS: BENZTROPINE MESYLATE 0.5 MG TABLET (FP) PO SCH ×2 (10:16→21:20)
[2019-04-29] MEDS: BUDESONIDE/FORMETEROL FUMARATE 160/4.5 mcg INHALER IH SCH (10:17)
[2019-04-29] MEDS: MUPIROCIN 2% TOPICAL OINTMENT FOR DECOLONIZATION NS SCH (10:17)
[2019-04-29] MEDS: POLYETHYLENE GLYCOL 3350 119 GM BTL PO SCH (10:27)
--- NOTE | 2019-04-29 11:36 | PN ---
Teaching Attending Note Name of Resident: Melly Medrano ATTENDING PHYSICIAN STATEMENT I saw and evaluated the patient. I reviewed the resident's note and discussed the case with the resident. I agree with the resident's findings and plan as documented. SUBJECTIVE: Pt seen and examined in the ICU. Extubated yesterday without incident. Denies shortness of breath. Tolerating PO. OBJECTIVE: Vital Signs Period Temp Pulse Resp BP Sys/Mcdaniel Pulse Ox Last 24 Hr 97.6 F-98 F 55-87 12-21 119-149/56-82 98-100 Intake & Output 04/26/19 04/27/19 04/28/19 04/29/19 23:59 23:59 23:59 23:59 Intake Total 3712.1 3246.8 3264.9 500 Output Total 1360 980 480 450 Balance 2352.1 2266.8 2784.9 50 Weight 89.811 kg Gen: NAD at rest Heart: RRR Lung: decreased breath sounds at the bases Abd: soft, nontender Ext: no edema CBC, BMP 04/29/19 06:15 04/29/19 06:15 Active Medications Albuterol Sulfate (Ventolin Hfa Inhaler -) 2 puff IH Q6H PRN PRN Reason: SHORTNESS OF BREATH Albuterol/Ipratropium (Duoneb -) 1 amp NEB RQID [facility] Last Admin: 04/29/19 11:10 Dose: 1 amp Benztropine Mesylate (Cogentin -) 0.5 mg PO BID [facility] Last Admin: 04/29/19 10:16 Dose: 0.5 mg Budesonide/Formoterol Fumarate (Symbicort 160/4.5mcg -) 1 puff IH BID [facility] Last Admin: 04/29/19 10:17 Dose: 1 puff Buspirone HCl (Buspar -) 10 mg PO TID [facility] Last Admin: 04/29/19 06:07 Dose: 10 mg Chlorhexidine Gluconate (Hibiclens For Decolonization -) 1 applic TP HS [facility] Last Admin: 04/28/19 21:46 Dose: 1 applic Cholecalciferol (Vitamin D3 -) 800 unit PO DAILY [facility] Last Admin: 04/29/19 10:16 Dose: 800 unit Cyclobenzaprine HCl (Flexeril -) 10 mg PO BID [facility] Last Admin: 04/29/19 10:15 Dose: 10 mg Dexamethasone Sodium Phosphate (Decadron Injection -) 6 mg IVPUSH Q8H-IV [facility] Last Admin: 04/29/19 10:14 Dose: 6 mg Diltiazem HCl (Cardizem Cd -) 180 mg PO DAILY [facility] Last Admin: 04/29/19 10:17 Dose: 180 mg Diphenhydramine HCl (Benadryl -) 25 mg PO Q6H PRN PRN Reason: FOR ITCHING Docusate Sodium (Colace -) 100 mg PO TID [facility] Last Admin: 04/29/19 06:07 Dose: 100 mg Duloxetine HCl (Cymbalta -) 60 mg PO DAILY [facility] Last Admin: 04/29/19 10:16 Dose: 60 mg Folic Acid (Folic Acid -) 1 mg PO DAILY [facility] Last Admin: 04/29/19 10:15 Dose: 1 mg Gabapentin (Neurontin -) 300 mg PO BID [facility] Last Admin: 04/29/19 10:15 Dose: 300 mg Guaifenesin (Robitussin -) 10 ml PO Q6H PRN PRN Reason: COUGH Morphine Sulfate (Morphine Sulfate) 4 mg IVPUSH Q3H PRN PRN Reason: PAIN LEVEL 6-10 Mupirocin (Bactroban Ointment (For Decolonization) -) 1 applic NS BID [facility] Stop: 05/01/19 21:59 Last Admin: 04/29/19 10:17 Dose: 1 applic Ondansetron HCl (Zofran Injection) 4 mg IVPUSH Q6H PRN PRN Reason: NAUSEA AND/OR VOMITING Oxycodone HCl (Roxicodone -) 5 mg PO Q6H PRN PRN Reason: PAIN LEVEL 1-5 Pantoprazole Sodium (Protonix Iv) 40 mg IVPUSH DAILY [facility] Last Admin: 04/29/19 10:14 Dose: 40 mg Polyethylene Glycol (Miralax (For Daily Use) -) 17 gm PO DAILY [facility] Last Admin: 04/29/19 10:27 Dose: 17 gm Promethazine HCl (Phenergan Injection -) 12.5 mg IVPUSH Q6H PRN PRN Reason: NAUSEA-FOR RESCUE AFTER 15 MIN Senna/Docusate Sodium (Pericolace -) 1 tablet PO HS [facility] Last Admin: 04/28/19 21:43 Dose: 1 tablet Ziprasidone (Geodon -) 20 mg PO DAILY [facility] Last Admin: 04/29/19 10:15 Dose: 20 mg ASSESSMENT AND PLAN: Cervical Stenosis with radiculopathy s/p C4 corpectomy, PEEK cage, anterior plate Post op Hematoma s/p Hematoma evacuation/Ligation of bleeding vessel Acute Respiratory Failure COPD CAD DM HTN Schizoaffective Disorder - inhaled bronchodilators - monitor H/H - taper off decadron - cough suppressants - PO as tolerated - rehab/PT - DVT prophylaxis - can monitor on floor
[2019-04-29 12:14] LABS: ANISOCYTOSIS 2+; MACROCYTOSIS 0; OVALOCYTE 1+; PLATELET ESTIMATE NORMAL; TEAR DROP CELLS 1+
--- NOTE | 2019-04-29 13:05 | PN ---
Progress Note (short form) - Note Progress Note: POD#7 from C6 corpectomy, s/p wound exploration and hematoma evacuation x2 Pt without any complaints. No difficulty swallowing. Vital Signs Period Temp Pulse Resp BP Sys/Mcdaniel Pulse Ox Last 24 Hr 97.3 F-98 F 55-93 15-21 114-149/56-82 98-100 GEN: A&0x3, NAD Neck: c/d/i with bradley. ecchymosis but neck remains soft and supple. CV: RRR Lungs: wheezing b/l LE: no calf tenderness or swelling noted b/l CBC, BMP /17/ 06:15 10/17/19 06:15 A/p: 59 yo female s/p C6 corpectomy with hematoma evacuation Begin soft diet today OOB to chair Dry daily dressing to neck D/w Dr. Corona Transfer to floor as per the ICU team
[2019-04-29] MEDS ORDERED: ONDANSETRON 4 MG/2 ML VIAL IVPUSH PRN (13:16)
[2019-04-29] MEDS ORDERED: PROMETHAZINE HCL 25 MG/1 ML VIAL IVPUSH PRN (13:16)
[2019-04-29] MEDS ORDERED: guaiFENesin 200 MG/10 ML 10 ML UNIT-DOSE CUPS PO PRN (13:16)
[2019-04-29] MEDS ORDERED: ALBUTEROL SO4 8 GM HFA INHALER IH PRN (13:16)
[2019-04-29] MEDS ORDERED: diphenhydrAMINE HCL 25 MG CAPSULE (FP) PO PRN (13:16)
[2019-04-29] MEDS ORDERED: INSULIN (NOVOLOG) ASPART 100 UNITS/ML 10ML VIAL ONE (18:10)
[2019-04-29] MEDS ORDERED: CHLORHEXIDINE GLUCONATE 4% CLEANSER FOR DECOLONIZATION TP SCH (22:00)
[2019-04-29] MEDS ORDERED: SENNOSIDES/DOCUSATE COMBO (SENNA PLUS) TABLET (UD) PO SCH (22:00)
[2019-04-29] MEDS ORDERED: MUPIROCIN 2% TOPICAL OINTMENT FOR DECOLONIZATION NS SCH (22:00)
[2019-04-30] MEDS: DEXAMETHASONE SOD PHOSPHATE 10 MG/1 ML VIAL IVPUSH SCH ×2 (01:19→10:09)
[2019-04-30] MEDS: BUDESONIDE/FORMETEROL FUMARATE 160/4.5 mcg INHALER IH SCH ×2 (01:20→14:01)
[2019-04-30] MEDS ORDERED: PT OWN MED DRAWER 7, Y5N ONE (04:46)
[2019-04-30] MEDS: busPIRone HCL 10 MG TABLET (FP) PO SCH ×2 (05:19→14:02)
[2019-04-30] MEDS: DOCUSATE SODIUM 100 MG CAPSULE (FP) PO SCH ×2 (05:19→14:02)
[2019-04-30 07:14] LABS: HEMATOCRIT 34.1 % (32.4-45.2); HEMOGLOBIN 11.6 GM/dL (10.7-15.3); MCH 28.6 pg (25.7-33.7); MCHC 34.2 g/dl (32.0-36.0); MEAN CELL VOLUME 83.7 fl (80-96); MEAN PLT VOLUME 9.2 fl (7.5-11.1); PLATELET COUNT 197 K/MM3 (134-434); RBC 4.07 M/mm3 (3.60-5.2); WHITE BLOOD COUNT 8.4 K/mm3 (4.0-10.0)
[2019-04-30 07:51] LABS: BLOOD UREA NITROGEN 23.9 mg/dL (7-18); CALCIUM 8.6 mg/dL (8.5-10.1); MAGNESIUM 1.9 mg/dL (1.8-2.4); PHOSPHOROUS 2.8 mg/dL (2.5-4.9); POTASSIUM 4.2 mmol/L (3.5-5.1)
[2019-04-30] MEDS: ALBUTEROL SO4 2.5/IPRATROPIUM 0.5 INH SOL 3 ML VIAL.NEB. NEB SCH ×3 (07:56→16:33)
[2019-04-30 08:19] LABS: CREATININE 0.9 mg/dL (0.55-1.3)
--- NOTE | 2019-04-30 09:36 | PN ---
Progress Note (short form) - Note Progress Note: POD#8 from C6 corpectomy, s/p wound exploration and hematoma evacuation x2 Pt without any complaints. No difficulty swallowing. Overall she feels well. Vital Signs Temp 97.6 F 04/30/19 05:48 Pulse 75 04/30/19 05:48 Resp 20 04/30/19 05:48 BP 149/74 04/30/19 05:48 Pulse Ox 98 04/29/19 09:00 Intake & Output 04/29/19 04/29/19 04/30/19 11:59 23:59 11:59 Intake Total 500 550 200 Output Total 450 350 Balance 50 200 200 Intake: IV 0 DIPRIVAN - 1,000,000 mcg 0 In 100 ml @ 5 MCG/KG/MIN 2.694 mls/hr IVPB TITR [facility] Rx#:[id number] Sublimaze Injection - 500 0 Mcg In D5w - 90 ml @ 0.7 MCG/HR 0.14 mls/hr IVPB TITR [facility] Rx#:[id number] Oral 500 550 200 Output: Urine 450 350 Void 450 350 Other: Voiding Method Bedpan Toilet # Unmeasured Voids Rocha 1 Void 1 Bowel Movement No No No CBC, BMP 04/30/19 06:00 04/30/19 06:00 PE: GEN: A&0x3, NAD Neck: incision c/d/i with bradley in situ. + ecchymosis but neck remains soft and supple, no active d/c Problem List - Problems (1) Cervical disc disease Assessment/Plan: POD #8 patient doing well. Begin soft diet today OOB to chair Dry daily dressing to neck D/w Dr. Corona d/c planning to rehab vs home Code(s): M50.90 - CERVICAL DISC DISORDER, UNSP, UNSPECIFIED CERVICAL REGION
[2019-04-30] MEDS ORDERED: DULoxetine HCL 30 MG CAPSULE.DR PO SCH (10:00)
[2019-04-30] MEDS ORDERED: ZIPRASIDONE 20 MG CAPSULE PO SCH (10:00)
[2019-04-30] MEDS ORDERED: POLYETHYLENE GLYCOL 3350 119 GM BTL PO SCH (10:00)
[2019-04-30] MEDS ORDERED: CHOLECALCIFEROL (VIT D3) 400 UNIT (10 MCG) TABLET PO SCH (10:00)
[2019-04-30] MEDS ORDERED: FOLIC ACID 1 MG TABLET (FP) PO SCH (10:00)
[2019-04-30] MEDS ORDERED: PANTOPRAZOLE SODIUM 40 MG VIAL IVPUSH SCH (10:00)
[2019-04-30] MEDS: GABAPENTIN 100 MG CAPSULE (FP) PO SCH (10:08)
[2019-04-30] MEDS: CYCLOBENZAPRINE HCL 10 MG TABLET (FP) PO SCH (10:09)
[2019-04-30] MEDS: BENZTROPINE MESYLATE 0.5 MG TABLET (FP) PO SCH (10:10)
--- NOTE | 2019-04-30 14:21 | PN ---
Progress Note, Physician History of Present Illness: PULMONARY COMFORTABLE,-SOB,-COUGH - Current Medication List Current Medications: Active Medications Albuterol Sulfate (Ventolin Hfa Inhaler -) 2 puff IH Q6H PRN PRN Reason: SHORTNESS OF BREATH Albuterol/Ipratropium (Duoneb -) 1 amp NEB RQID [facility] Last Admin: 04/30/19 12:47 Dose: 1 amp Benztropine Mesylate (Cogentin -) 0.5 mg PO BID [facility] Last Admin: 04/30/19 10:10 Dose: 0.5 mg Budesonide/Formoterol Fumarate (Symbicort 160/4.5mcg -) 1 puff IH BID [facility] Last Admin: 04/30/19 14:01 Dose: 1 inh Buspirone HCl (Buspar -) 10 mg PO TID [facility] Last Admin: 04/30/19 14:02 Dose: 10 mg Cholecalciferol (Vitamin D3 -) 800 unit PO DAILY [facility] Last Admin: 04/30/19 10:09 Dose: 800 unit Cyclobenzaprine HCl (Flexeril -) 10 mg PO BID [facility] Last Admin: 04/30/19 10:09 Dose: 10 mg Dexamethasone Sodium Phosphate (Decadron Injection -) 6 mg IVPUSH Q8H-IV [facility] Last Admin: 04/30/19 10:09 Dose: 6 mg Diltiazem HCl (Cardizem Cd -) 180 mg PO DAILY [facility] Last Admin: 04/30/19 10:09 Dose: 180 mg Diphenhydramine HCl (Benadryl -) 25 mg PO Q6H PRN PRN Reason: FOR ITCHING Docusate Sodium (Colace -) 100 mg PO TID [facility] Last Admin: 04/30/19 14:02 Dose: 100 mg Duloxetine HCl (Cymbalta -) 60 mg PO DAILY [facility] Last Admin: 04/30/19 10:08 Dose: 60 mg Folic Acid (Folic Acid -) 1 mg PO DAILY [facility] Last Admin: 04/30/19 10:09 Dose: 1 mg Gabapentin (Neurontin -) 300 mg PO BID [facility] Last Admin: 04/30/19 10:08 Dose: 300 mg Guaifenesin (Robitussin -) 10 ml PO Q6H PRN PRN Reason: COUGH Ondansetron HCl (Zofran Injection) 4 mg IVPUSH Q6H PRN PRN Reason: NAUSEA AND/OR VOMITING Pantoprazole Sodium (Protonix Iv) 40 mg IVPUSH DAILY [facility] Last Admin: 04/30/19 10:08 Dose: 40 mg Polyethylene Glycol (Miralax (For Daily Use) -) 17 gm PO DAILY [facility] Last Admin: 04/30/19 10:11 Dose: Not Given Promethazine HCl (Phenergan Injection -) 12.5 mg IVPUSH Q6H PRN PRN Reason: NAUSEA-FOR RESCUE AFTER 15 MIN Senna/Docusate Sodium (Pericolace -) 1 tablet PO HS [facility] Last Admin: 04/29/19 21:27 Dose: 1 tablet Ziprasidone (Geodon -) 20 mg PO DAILY [facility] Last Admin: 04/30/19 10:10 Dose: 20 mg - Objective Vital Signs: Vital Signs Temperature 97.6 F 04/30/19 05:48 Pulse Rate 75 04/30/19 05:48 Respiratory Rate 20 04/30/19 05:48 Blood Pressure 149/74 04/30/19 05:48 O2 Sat by Pulse Oximetry (%) 98 04/29/19 09:00 Constitutional: Yes: Well Nourished, Calm Eyes: Yes: WNL HENT: Yes: WNL Neck: Yes: Other (CERVICAL COLLAR) Cardiovascular: Yes: Regular Rate and Rhythm, S1, S2 Respiratory: Yes: CTA Bilaterally Gastrointestinal: Yes: Normal Bowel Sounds, Soft Extremities: Yes: WNL Edema: No Labs: CBC, BMP 04/30/19 06:00 04/30/19 06:00 INR, PTT INR No Result Required. 04/27/19 06:10 Problem List - Problems (1) Cervical disc disease Code(s): M50.90 - CERVICAL DISC DISORDER, UNSP, UNSPECIFIED CERVICAL REGION (2) Cervical spine disease Code(s): M48.9 - SPONDYLOPATHY, UNSPECIFIED (3) H/O tobacco use, presenting hazards to health Code(s): Z87.891 - PERSONAL HISTORY OF NICOTINE DEPENDENCE (4) Respiratory failure Code(s): J96.90 - RESPIRATORY FAILURE, UNSP, UNSP W HYPOXIA OR HYPERCAPNIA (5) Anemia Code(s): D64.9 - ANEMIA, UNSPECIFIED (6) Discogenic pain Code(s): M54.9 - DORSALGIA, UNSPECIFIED (7) HTN (hypertension) Code(s): I10 - ESSENTIAL (PRIMARY) HYPERTENSION (8) Schizoaffective disorder Code(s): F25.9 - SCHIZOAFFECTIVE DISORDER, UNSPECIFIED Assessment/Plan ASSESSMENT AND PLAN: Cervical Stenosis with radiculopathy s/p C4 corpectomy, PEEK cage, anterior plate Post op Hematoma s/p Hematoma evacuation/Ligation of bleeding vessel Acute Respiratory Failure stable COPD CAD DM HTN Schizoaffective Disorder - inhaled bronchodilators - monitor H/H - taper off decadron - cough suppressants - PO as tolerated - rehab/PT - DVT prophylaxis - incentive spirometer DR FLOYD
--- NOTE | 2019-04-30 14:39 | DS ---
"Physical Examination Vital Signs: Vital Signs Temperature 97.6 F 04/30/19 05:48 Pulse Rate 75 04/30/19 05:48 Respiratory Rate 20 04/30/19 05:48 Blood Pressure 149/74 04/30/19 05:48 O2 Sat by Pulse Oximetry (%) 98 04/29/19 09:00 Constitutional: Yes: Calm Neck: Yes: Other (neck colar and midline dressing) Cardiovascular: Yes: Regular Rate and Rhythm, S1, S2 Respiratory: Yes: CTA Bilaterally Gastrointestinal: Yes: Normal Bowel Sounds, Soft Labs: CBC, BMP 04/30/19 06:00 04/30/19 06:00 Discharge Summary Problems reviewed: Yes Reason For Visit: CERVICAL SPONDYLOSIS AND METASTATIC FOCI Current Active Problems COPD (chronic obstructive pulmonary disease) (Acute) Cervical disc disease (Acute) Cervical spine disease (Acute) Diabetes (Acute) H/O tobacco use, presenting hazards to health (Acute) Postoperative hematoma (Acute) Respiratory failure (Acute) Hospital Course: 58 y/o lady with h/o CAD, HTN, COPD, depression, CKD, DM , Schizoaffective disorder s/p cervical spine surgery corpectomy Operative Date: 04/26/19 \\Operation: Evacuation of hematoma, ligation of bleeding blood vessel neck Findings: bleeding vein on muscle s/p C6 corpectomy plan to go home and Fu with Dr min as outpatient with neck collar - Instructions Diet, Activity, Other Instructions: Post Operative Instructions Physical Activity Resume your normal everyday activity as tolerated. No heavy lifting or exercise until seen by your surgeon. You may walk unlimited amounts and climb stairs. You may resume driving the car when you feel safe and comfortable behind the wheel and you are no longer wearing your brace. Do not operate a vehicle while taking narcotic medication. Brace If you had neck surgery, wear surgical collar 23 hr/day. Remove to shower only. Wound Care Keep your incision clean, dry and covered at all times. Apply an occlusive dressing (Saran wrap or Tegaderm) when showering to avoid getting your incision wet. Do not submerge incision or apply ointments or creams. The bradley will be removed in the office in 10-14 days post-op. Diet There are no dietary restrictions. Eat healthy, high-fiber foods. Drink 6-8 glasses of liquid each day. This will assist in keeping your bowels regular. Pain Management You may take Tylenol or acetaminophen. Any pain prescription medication ordered should be taken as prescribed for moderate to severe pain. Avoid any ibuprofen (Motrin, Advil, Aleve, Toradol, etc) for 3 months unless otherwise discussed with your surgeon. Call Dr Garces for any of the following: Severe pain not relieved by medication Fever of 101 or higher Excessive bleeding or drainage on dressing Inability to urinate Any chest pain or shortness of breath, seek Emergency Care. Call the office to confirm a post-operative appointment for 2-3 weeks post-op Yehuda Corona MD [facility] [address] [place] [address] This report was requested by: Coral Meier | Reference #: [id number] Others' Prescriptions Patient Name: Marycarmen Childs Date: 1960 Address: [address] [place] [address] [address] [place] [id number] Sex: Female Rx Written Rx Dispensed Drug Quantity Days Supply Prescriber Name 10/15/2018 10/23/2018 oxycodone-acetaminophen 5-325 mg tablet 30 5 Adversario, Brenda F 10/15/2018 10/15/2018 oxycodone-acetaminophen 5-325 mg tablet 30 5 Adversario, Brenda F Disposition: VNS/HOME HEALTH CARE - Home Medications Comprehensive Discharge Medication List: Ambulatory Orders Albuterol Sulfate Inhaler - [Ventolin HFA Inhaler -] 2 inh IH Q6H #1 inh traZODone HCL [Desyrel -] 500 mg PO HS 11/27/16 Benztropine Mesylate 0.5 mg PO BID 02/16/18 Buspirone HCl [Buspar -] 10 mg PO TID 02/16/18 Cyclobenzaprine HCl 10 mg PO BID 02/16/18 Diltiazem Cd [Cardizem Cd -] 180 mg PO DAILY 02/16/18 Duloxetine HCl [Cymbalta] 60 mg PO DAILY 02/16/18 Gabapentin 300 mg PO BID 02/16/18 Omeprazole 40 mg PO DAILY 02/16/18 Sennosides/Docusate Sodium [Senna Laxative Tablet] 1 each PO HS 02/16/18 Sitagliptin Phosphate [Januvia] 100 mg PO DAILY 02/16/18 Ziprasidone HCl [Geodon] 25 mg PO DAILY 02/16/18 metFORMIN HCL [Metformin ER Osmotic] 500 mg PO DAILY 02/16/18 Cholecalciferol (Vitamin D3) [Vitamin D -] 800 unit PO DAILY 09/10/18 Fluticasone/Umeclidin/Vilanter [Trelegy Ellipta 100-62.5-25] 1 each IH DAILY Polyethylene Glycol 3350 [Miralax 119 gm Btl -] 17 gm PO DAILY #1 bottle Docusate Sodium [Colace -] 100 mg PO BID #14 capsule 04/23/19 Oxycodone HCl/Acetaminophen [Percocet 5-325 mg Tablet] 1 - 2 tab PO Q6H PRN #40 tab MDD 8 04/23/19"
[2019-04-30 15:45] VITALS: BP 138/63; PULSE 81; TEMP 98.2
== END 2019-04-30 16:58 | disposition home health service (06) | DRG 471 ==
LOC: JSAMEDAYSX 04-22 09:19 → J8W 04-22 22:25 → JSAMEDAYSX 04-26 11:36 → JICU 04-26 16:29 → J8W 04-29 13:34
PROVIDERS: ADMIT Family Medicine; ATTEND Family Medicine
PROC: 0RB30ZZ Excision of Cervical Vertebral Disc, Open Approach (ICD-10-PCS; 2019-04-22)
PROC: 00NW0ZZ Release Cervical Spinal Cord, Open Approach (ICD-10-PCS; 2019-04-22)
PROC: B01BZZZ Fluoroscopy of Spinal Cord (ICD-10-PCS; 2019-04-22)
PROC: 4A11X4G Monitoring of Peripheral Nervous Electrical Activity, Intraoperative, External Approach (ICD-10-PCS; 2019-04-22)
PROC: 0RG20A0 Fusion of 2 or more Cervical Vertebral Joints with Interbody Fusion Device, Anterior Approach, Anterior Column, Open Approach (ICD-10-PCS; principal; 2019-04-22 14:00)
PROC: 0W960ZZ Drainage of Neck, Open Approach (ICD-10-PCS; 2019-04-26)
PROC: 05LY0ZZ Occlusion of Upper Vein, Open Approach (ICD-10-PCS; 2019-04-26)
PROC: 0W960ZZ Drainage of Neck, Open Approach (ICD-10-PCS; 2019-04-26)
DX: M47.12 Other spondylosis with myelopathy, cervical region (principal); J96.00 Acute respiratory failure, unspecified whether with hypoxia or hypercapnia; M96.840 Postprocedural hematoma of a musculoskeletal structure following a musculoskeletal system procedure; M54.12 Radiculopathy, cervical region; I25.10 Atherosclerotic heart disease of native coronary artery without angina pectoris; J44.9 Chronic obstructive pulmonary disease, unspecified; F32.9 Major depressive disorder, single episode, unspecified; E11.22 Type 2 diabetes mellitus with diabetic chronic kidney disease; I12.9 Hypertensive chronic kidney disease with stage 1 through stage 4 chronic kidney disease, or unspecified chronic kidney disease; N18.9 Chronic kidney disease, unspecified; F25.9 Schizoaffective disorder, unspecified; F17.210 Nicotine dependence, cigarettes, uncomplicated; Z79.84 Long term (current) use of oral hypoglycemic drugs; R53.83 Other fatigue; D64.9 Anemia, unspecified; Y83.8 Other surgical procedures as the cause of abnormal reaction of the patient, or of later complication, without mention of misadventure at the time of the procedure
CPT/HCPCS: 36415; 36430; 36511; 36600; 70490-TC; 71045-TC-FY; 72125-TC; 76000-TC-FY; 80048; 80053; 82140; 82550; 82803; 82962; 83735; 84100; 84484; 85025; 85027; 85610; 85730; 86850; 86900; 86901; 86922; 93005; 93010; 94002; 94010; 94640; 94760; 97116-GP; 97161-GP; J0131; J1100; J1644; P9038; P9058

== ENCOUNTER 2019-05-28 16:38 | Emergency (ER) | payer OTHER ==
--- NOTE | 2019-05-28 16:54 | PDOC ---
Rapid Medical Evaluation Chief Complaint: Back Pain Time Seen by Provider: 05/28/19 16:52 Medical Evaluation: Allergies Allergy/AdvReac Type Severity Reaction Status Date / Time No Known Allergies Allergy Verified 05/28/19 16:52 05/28/19 16:52 59 year old female with neck and shoulder pain s/p spinal surgery 04/21/2019. pain has been there since surgery patient reports that she ran out of her percocet/ PE: patient alert ox3. A: back pain P: patient to the ER for further management. Discharge Disposition - Diagnosis Discogenic pain - Referrals - Patient Instructions - Post Discharge Activity
[2019-05-28 16:55] VITALS: BP 122/66; PULSE 94; TEMP 99.1; BMI 28.1
[2019-05-28] MEDS ORDERED: LIDOCAINE 5% TOPICAL PATCH TP ONE (19:28)
--- NOTE | 2019-05-28 19:33 | PDOC ---
History of Present Illness - General Chief Complaint: Back Pain Stated Complaint: PAIN Time Seen by Provider: 05/28/19 16:52 History Source: Patient Exam Limitations: No Limitations Past History - Past Medical History Allergies/Adverse Reactions: Allergies Allergy/AdvReac Type Severity Reaction Status Date / Time No Known Allergies Allergy Verified 05/28/19 16:52 Home Medications: Ambulatory Orders Albuterol Sulfate Inhaler - [Ventolin HFA Inhaler -] 2 inh IH Q6H #1 inh traZODone HCL [Desyrel -] 500 mg PO HS 11/27/16 Benztropine Mesylate 0.5 mg PO BID 02/16/18 Buspirone HCl [Buspar -] 10 mg PO TID 02/16/18 Diltiazem Cd [Cardizem Cd -] 180 mg PO DAILY 02/16/18 Duloxetine HCl [Cymbalta] 60 mg PO DAILY 02/16/18 Gabapentin 300 mg PO BID 02/16/18 Omeprazole 40 mg PO DAILY 02/16/18 Sennosides/Docusate Sodium [Senna Laxative Tablet] 1 each PO HS 02/16/18 Sitagliptin Phosphate [Januvia] 100 mg PO DAILY 02/16/18 Ziprasidone HCl [Geodon] 25 mg PO DAILY 02/16/18 metFORMIN HCL [Metformin ER Osmotic] 500 mg PO DAILY 02/16/18 Cholecalciferol (Vitamin D3) [Vitamin D -] 800 unit PO DAILY 09/10/18 Fluticasone/Umeclidin/Vilanter [Trelegy Ellipta 100-62.5-25] 1 each IH DAILY Polyethylene Glycol 3350 [Miralax 119 gm Btl -] 17 gm PO DAILY #1 bottle Docusate Sodium [Colace -] 100 mg PO BID #14 capsule 04/23/19 Oxycodone HCl/Acetaminophen [Percocet 5-325 mg Tablet] 1 - 2 tab PO Q6H PRN #40 tab MDD 8 04/23/19 Lidocaine 5% Patch [Lidoderm -] 1 patch TP DAILY #30 patch 05/28/19 Anemia: No Asthma: No Cancer: No Cardiac Disorders: Yes (CHEST PAINS, ?valves?) CVA: No COPD: Yes ("congested") CHF: No Dementia: No Diabetes: Yes GI Disorders: Yes (heartburn) Disorders: No HTN: No Hypercholesterolemia: Yes Liver Disease: No Seizures: No Thyroid Disease: No - Surgical History Abdominal Surgery: No Appendectomy: Yes Cardiac Surgery: No Cholecystectomy: No Lung Surgery: No Neurologic Surgery: Yes (back sx) Orthopedic Surgery: Yes (RT KNEE REPLACEMENT) - Immunization History Immunization Up to Date: No - Psycho Social/Smoking Cessation Hx Smoking History: Never smoked Have you smoked in the past 12 months: Yes Number of Cigarettes Smoked Daily: 20 Information on smoking cessation initiated: No 'Breaking Loose' booklet given: 04/16/19 Hx Alcohol Use: No Drug/Substance Use Hx: No Substance Use Type: None Hx Substance Use Treatment: No *Physical Exam - Vital Signs Last Vital Signs Temp Pulse Resp BP Pulse Ox 99.1 F 94 H 18 122/66 94 L 05/28/19 16:52 05/28/19 16:52 05/28/19 16:52 05/28/19 16:52 05/28/19 16:52 - Physical Exam General Appearance: No: Apparent Distress HEENT: positive: Normal Voice Neck: positive: Supple. negative: Rigid, Rigidity, Tender lateral, Tender midline Respiratory/Chest: positive: Lungs Clear, Normal Breath Sounds. negative: Respiratory Distress Cardiovascular: positive: Regular Rhythm, Regular Rate, S1, S2. negative: Murmur Neurologic: positive: meteorological aide II-XII NML intact, Fully Oriented, Alert, Normal Mood/ Affect, Motor Strength 5/5 Medical Decision Making - Medical Decision Making 59 y/o F hx of CAD, COPD, NIDDM, CKD, GERD, HTN, schizoaffective, depression presents requesting refill of pain meds. Patient had cervical spinal surgery done 04/[address] Larson followed by hematoma evacuation 04/26 and states ran out of Percocet around [address] Larson is currently on vacation for the next 2 weeks. Denies fever, sob, cp, abd pain, vomiting, numbness/tingling/weakness of extremities. I-Stop reviewed: Rx Written Rx Dispensed Drug Quantity Days Supply Prescriber Name 05/10/2019 05/17/2019 endocet 5-325 tablet 180 30 Yehuda Corona 04/23/2019 05/06/2019 oxycodone-acetaminophen 5-325 mg tab 40 7 Metzen , [place] 07/21/2018 07/21/2018 oxycodone-acetaminophen 5-325 mg tablet 90 30 06/15/2018 06/16/2018 oxycodone-acetaminophen 5-325 mg tablet 90 30 Patient had gotten 180 tablets of Percocet last week States she was only taking it 6 times a day as the rx had written Explained that can not prescribe her further narcotics at this time Lidocaine patch applied 05/28/19 19:30 Discharge - Discharge Information Problems reviewed: Yes Clinical Impression/Diagnosis: Discogenic pain Condition: Stable Disposition: HOME - Admission No - Additional Discharge Information Prescriptions: Lidocaine 5% Patch [Lidoderm -] 1 patch TP DAILY #30 patch Prescription Drug Monitoring Program (I-STOP) results: I-STOP reviewed and issues identified - Follow up/Referral Referrals: Shey Engle [Primary Care Provider] - 2 Days - Patient Discharge Instructions Patient Printed Discharge Instructions: DI for Neck Pain Additional Instructions: Thank you for choosing [facility]. It was a pleasure taking care of you. You may take Tylenol 650 mg every 6 hours by mouth as needed for mild to moderate pain. Do not take more than 4000 mg of Tylenol in 1 day. Apply lidocaine patch as directed Use warm compresses/heating pads as needed Continue follow-up with your primary care doctor and Dr. Larson. Return to the Emergency Department if your symptoms worsen or persist, you have fever, shortness of breath, chest pain, severe abdominal pain, vomiting, weakness of extremities (arms and/or legs) or other concerning symptoms. - Post Discharge Activity
[2019-05-28] MEDS ORDERED: LIDOCAINE 5% TOPICAL PATCH ONE (19:54)
== END 2019-05-28 20:07 | disposition home or self-care (01) ==
LOC: JER 16:38
DX: M54.89 Other dorsalgia (principal); M48.9 Spondylopathy, unspecified; Z98.890 Other specified postprocedural states; E11.9 Type 2 diabetes mellitus without complications; I12.9 Hypertensive chronic kidney disease with stage 1 through stage 4 chronic kidney disease, or unspecified chronic kidney disease; E11.22 Type 2 diabetes mellitus with diabetic chronic kidney disease; N18.9 Chronic kidney disease, unspecified; J44.9 Chronic obstructive pulmonary disease, unspecified; K21.9 Gastro-esophageal reflux disease without esophagitis; F25.9 Schizoaffective disorder, unspecified
CPT/HCPCS: 99282-25